=== PATIENT | male | born 1940 | race Caucasian/White ===

== ENCOUNTER 2016-10-27 10:24 | Emergency (ER) | payer MEDICARE ==
[2016-10-27 12:47] VITALS: BP 106/58
[2016-10-27] MEDS ORDERED: Aspirin Low Dose CHEW TAB* 81 MG PO ONE (12:57)
--- NOTE | 2016-10-27 12:57 | UC ---
Shortness of Breath HPI - HPI Summary HPI Summary: 2 DAYS OF EXTREME FATIGUE AND SHORTNESS OF BREATH. WORSE WITH EXERTION. HAS ASSOCIATED SHARP MIDSTERNAL CP AND FEELS CLAMMY. NO NAUSEA. HAS HAD LOW GRADE FEVER 101.3 YESTERDAY. WONDERS ABOUT PNEUMONIA. BP NOTED TO BE QUITE LOW. - History of Current Complaint Chief Complaint: UCRespiratory Stated Complaint: CHEST CONGEST,FEVER Time Seen by Provider: 10/27/16 12:46 Hx Obtained From: Patient Onset/Duration: Gradual Onset, Lasting Days, Still Present Timing: Intermittent Episodes Lasting: Current Severity: Mild Dyspnea At: Exertion Aggrevating Factors: Movement Associated Signs & Symptoms: Positive: Cough (Nonproductive), Chest Pain Unrelated to Cough, Fever, Diaphoresis. Negative: Chills, Nasal Congestion, Dizzy, Calf Pain/Swelling, Edema - Allergy/Home Medications Allergies/Adverse Reactions: Allergies Allergy/AdvReac Type Severity Reaction Status Date / Time Adhesive Tape Allergy Rash Verified 01/18/16 08:55 PMH/Surg Hx/FS Hx/Imm Hx Endocrine History Of: Reports: Diabetes - TYPE 2 Cardiovascular History Of: Reports: Hypertension - CONTROL WITH MED GI/ History Of: Reports: Kidney Stones - HX OF - Surgical History Surgical History: Yes Surgery Procedure, Year, and Place: UMBILICAL HERNIA X 2 ABOUT 15 YEARS AGO, [facility] [place]. 07/2008 LEFT ULNAR NERVE DECOMPRESSION, [facility] [place]. 09/2008 ESWL LEFT RENAL CALCULUS WITH LEFT URETERAL STENT INSERTION, [facility]. 2015 RETINA SURGERY X 2 RIGHT EYE, [place] - Family History Known Family History: Positive: Cardiac Disease, Hypertension, Diabetes - Social History Alcohol Use: None Substance Use Type: None Smoking Status (MU): Former Smoker Type: Cigarettes Amount Used/How Often: 2 PPD Length of Time of Smoking/Using Tobacco: 25+ YEAR Have You Smoked in the Last Year: No When Did the Patient Quit Smoking/Using Tobacco: 1985 Review of Systems Constitutional: Fatigue - EXTREME ENT: Negative Respiratory: Shortness Of Breath, Cough Cardiovascular: Chest Pain Gastrointestinal: Negative All Other Systems Reviewed And Are Negative: Yes Physical Exam Triage Information Reviewed: Yes Appearance: Well-Appearing, No Pain Distress, Well-Nourished Vital Signs: Initial Vital Signs Temp 98.3 F 10/27/16 11:53 Pulse 83 10/27/16 11:53 Resp 16 10/27/16 11:53 BP 105/45 10/27/16 11:53 Pulse Ox 97 10/27/16 11:53 Vital Signs Reviewed: Yes Eyes: Positive: Conjunctiva Clear ENT: Positive: Hearing grossly normal Neck: Positive: Supple, Nontender, No Lymphadenopathy Respiratory: Positive: No respiratory distress, No accessory muscle use, Crackles - BILATERAL BASES Cardiovascular Exam: Normal Abdomen Description: Positive: Soft Musculoskeletal: Positive: No Edema Neurological: Positive: Alert Psychological: Positive: Age Appropriate Behavior Skin: Negative: rashes Diagnostics - EKG Cardiac Rate: NL - 80 BPM Cardiac Rhythm: Sinus: Normal Ectopy: None ST Segment: Normal Shortness of Breath Dx - Differential Dx/Diagnosis Differential Diagnosis/HQI/PQRI: Bronchitis, Chest Wall Pain, Pulmonary Edema, Unstable Angina, Other - PNEUMONIA Provider Diagnoses: SOB/LOW BP/CP - Physician Notification/Consults Discussed Patient Care With: DR. WYATT ALONSO Time Discussed With Above Provider: 13:01 - TO [facility] [place] ER BY PRIVATE CAR Discharge - Discharge Plan Condition: Stable Disposition: AGAINST MEDICAL ADVICE Referrals: Zia Green MD [Primary Care Provider] -
== END 2016-10-27 13:07 | disposition left against medical advice (07) ==
LOC: UCEAST 10:24
DX: R06.02 Shortness of breath (principal); R07.89 Other chest pain; M54.5 Low back pain; E11.9 Type 2 diabetes mellitus without complications; I10 Essential (primary) hypertension; Z87.442 Personal history of urinary calculi; Z87.891 Personal history of nicotine dependence
CPT/HCPCS: 93005; 99202; A9270-GY; G0463

== ENCOUNTER → 2016-10-27 13:26 | Emergency (ER) | payer MEDICARE ==
[~2016-10-27 13:26] MED LIST: Levofloxacin TAB* 250 MG PO ONE; Levofloxacin TAB* 750 MG ONE
--- NOTE | 2016-10-27 15:10 | RAD ---
INDICATION: Cough. COMPARISON: Comparison is made with a prior chest x-ray study from January 23, 2011. TECHNIQUE: Dual-energy PA and lateral views of the chest were obtained. FINDINGS: The heart is within normal limits in size. Mediastinal and hilar contours appear within normal limits. The lungs are hyperinflated. There are small curvilinear densities at the left lung base most consistent with atelectasis or scarring. The lungs are otherwise clear. No pleural effusion is seen. IMPRESSION: Findings consistent with COPD, no evidence for acute finding.
[2016-10-27 15:21] LABS: Hematocrit 40 % (42-52); Hemoglobin 13.5 g/dl (14.0-18.0); Mean Corpuscular HGB Conc 34 g/dl (31-36); Mean Corpuscular Hemoglobin 30 pg (27-31); Mean Corpuscular Volume 91 fL (80-94); Mean Platelet Volume 7 um3 (7.4-10.4); Red Blood Count 4.44 10^6/ul (4.0-5.4); Red Cell Distribution Width 14 % (10.5-15); White Blood Count 18.5 10^3/ul (3.5-10.8)
[2016-10-27 15:35] LABS: Albumin 3.8 g/dL (3.2-5.2); BUN/Creatinine Ratio 25.2 (8-20); C Reactive Protein 99.36 mg/L (< 5.00); Calcium 9.7 mg/dL (8.6-10.3); EGFR African American 79.7 (>60); Globulin 4.2 g/dL (2-4); Total Bilirubin 0.6 mg/dL (0.2-1.0)
[2016-10-27 17:08] VITALS: BP 110/54
--- NOTE | 2016-10-27 21:10 | ED ---
Flex Ceballos Aidan, scribed for Terrence Zamorano MD on 10/27/16 at 1810 . Respiratory - HPI Summary HPI Summary: 76 y/o male presents to the ED via transfer from the with a complaint of an acute, constant, moderate nonproductive cough for the past 2.5 days, hoarseness , and a moderate episode of hypotension. His cough causes a mild chest discomfort. While at the , he felt moderately lightheaded. Lastly, he had a fever today and some SOB on exertion. Hx of pneumonia 3x. - History of Current Complaint Chief Complaint: EDGeneral Stated Complaint: LOW BP Time Seen by Provider: 10/27/16 17:06 Hx Obtained From: Patient Onset/Duration: Sudden Onset, Lasting Days - 2.5, Still Present Timing: Constant Initial Severity: Moderate Current Severity: Moderate Pain Intensity: 0 Character: Cough (Nonproductive) Sputum Amount: None Aggravating Factor(s): Other - his cough causes chest discomfort Alleviating Factor(s): Nothing - unknown Associated Signs and Symptoms: Fever - today, SOB - on exertion, Chest Pain with Cough - and hoarseness, episode of hypotension - Risk Factors Status Asthmaticus Risk Factors: Smoking - former smoker Pulmonary Embolism Risk Factors: Smoking - former smoker Cardiac Risk Factors: Smoking - former smoker - Allergy/Home Medications Allergies/Adverse Reactions: Allergies Allergy/AdvReac Type Severity Reaction Status Date / Time Adhesive Tape Allergy Rash Verified 01/18/16 08:55 Home Medications: Home Medications Aspirin EC Low Dose* [Ecotrin EC Low Dose 81 MG*] 81 mg PO DAILY 10/27/16 [ History Confirmed 10/27/16] Hydrochlorothiazide TAB* [Hydrodiuril TAB*] 12.5 mg PO QAM 10/27/16 [History Confirmed 10/27/16] Irbesartan (NF) [Avapro (NF)] 300 mg PO QAM 10/27/16 [History Confirmed 10/27/16 ] Metformin ER (NF) 500 mg PO QAM 10/27/16 [History Confirmed 10/27/16] Metoprolol Tartrate TAB* [Lopressor TAB*] 25 mg PO DAILY 10/27/16 [History Confirmed 10/27/16] Multivitamins/Minerals TAB* [Theragran/minerals TAB*] 1 tab PO DAILY 10/27/16 [ History Confirmed 10/27/16] amLODIPine TAB* [Norvasc 5 mg TAB*] 5 mg PO DAILY 10/27/16 [History Confirmed ] PMH/Surg Hx/FS Hx/Imm Hx Endocrine/Hematology History: Reports: Hx Diabetes - TYPE 2 Cardiovascular History: Reports: Hx Hypertension - CONTROL WITH MED, Other Cardiovascular Problems/Disorders - CHOLESTEROL CONTROL WITH MEDS Respiratory History: Reports: Other Respiratory Problems/Disorders - HX OF PNEUMONIA LAST TIME ABOUT 3 YEARS AGO History: Reports: Hx Kidney Stones - HX OF, Other Problems/Disorders - ENLARGE PROSTATE Sensory History: Reports: Hx Cataracts - BILATERAL, Hx Contacts or Glasses - GLASSES Denies: Hx Hearing Aid Opthamlomology History: Reports: Hx Cataracts - BILATERAL, Hx Contacts or Glasses - GLASSES - Surgical History Surgery Procedure, Year, and Place: UMBILICAL HERNIA X 2 ABOUT 15 YEARS AGO, [facility]. 07/2008 LEFT ULNAR NERVE DECOMPRESSION, [facility]. 09/2008 ESWL LEFT RENAL CALCULUS WITH LEFT URETERAL STENT INSERTION, [facility]. 2014 RETINA SURGERY X 2 RIGHT EYE, [place] Hx Anesthesia Reactions: No Infectious Disease History: No Infectious Disease History: Denies: Traveled Outside the [place] in Last 30 Days - Family History Known Family History: Positive: Cardiac Disease, Hypertension, Diabetes - Social History Occupation: Retired Lives: With Family Alcohol Use: None Substance Use Type: Reports: None Smoking Status (MU): Former Smoker Type: Cigarettes Amount Used/How Often: 2 PPD Length of Time of Smoking/Using Tobacco: 25+ YEAR Have You Smoked in the Last Year: No Review of Systems Constitutional: Other - moderate lightheadedness while at the Positive: Fever. Negative: Chills, Fatigue, Skin Diaphoresis Eyes: Negative ENT: Negative Cardiovascular: Other - episode of hypotension Negative: Palpitations, Chest Pain Respiratory: Other - hoarseness Positive: Shortness Of Breath - on exertion, Cough - nonproductive, causes chest discomfort Gastrointestinal: Negative Genitourinary: Negative Musculoskeletal: Negative Skin: Negative Neurological: Negative Psychological: Normal All Other Systems Reviewed And Are Negative: Yes Physical Exam Triage Information Reviewed: Yes Vital Signs On Initial Exam: Initial Vitals Temp Pulse Resp BP Pulse Ox 98.3 F 82 18 104/50 97 10/27/16 13:33 10/27/16 13:33 10/27/16 13:33 10/27/16 13:33 10/27/16 13:33 Vital Signs Reviewed: Yes Appearance: Positive: Well-Appearing, No Pain Distress Skin: Positive: Warm, Skin Color Reflects Adequate Perfusion, Dry Head/Face: Positive: Normal Head/Face Inspection Eyes: Positive: Normal ENT: Positive: Normal ENT inspection Neck: Positive: Supple, Nontender Respiratory/Lung Sounds: Positive: Clear to Auscultation, Breath Sounds Present Cardiovascular: Positive: RRR Abdomen Description: Positive: Nontender, Soft Bowel Sounds: Positive: Present Musculoskeletal: Positive: Normal Neurological: Positive: Normal Psychiatric: Positive: Affect/Mood Appropriate - [place] Coma Scale Coma Scale Total: 15 Diagnostics - Vital Signs Vital Signs Temp Pulse Resp BP Pulse Ox 10/27/16 17:17 20 10/27/16 17:06 99.4 F 78 20 110/54 95 10/27/16 15:05 97.1 F 82 17 132/57 97 10/27/16 13:33 98.3 F 82 18 104/50 97 - Laboratory Lab Results: Lab Results 10/27/16 10/27/16 10/27/16 Range/Units 15:11 15:11 17:35 WBC 18.5 H (3.5-10.8) 10^3/ul RBC 4.44 (4.0-5.4) 10^6/ul Hgb 13.5 L (14.0-18.0) g/dl Hct 40 L (42-52) % MCV 91 (80-94) fL MCH 30 (27-31) pg MCHC 34 (31-36) g/dl RDW 14 (10.5-15) % Plt Count 316 (150-450) 10^3/ul MPV 7 L (7.4-10.4) um3 Neut % (Auto) 79.2 (38-83) % Lymph % (Auto) 12.7 L (25-47) % [place] % (Auto) 6.0 (1-9) % Eos % (Auto) 1.4 (0-6) % Baso % (Auto) 0.7 (0-2) % Absolute Neuts (auto) 14.7 H (1.5-7.7) 10^3/ul Absolute Lymphs (auto) 2.3 (1.0-4.8) 10^3/ul Absolute Monos (auto) 1.1 H (0-0.8) 10^3/ul Absolute Eos (auto) 0.3 (0-0.6) 10^3/ul Absolute Basos (auto) 0.1 (0-0.2) 10^3/ul Absolute Nucleated RBC 0.01 10^3/ul Nucleated RBC % 0 Sodium 134 (133-145) mmol/L Potassium 4.0 (3.5-5.0) mmol/L Chloride 103 (101-111) mmol/L Carbon Dioxide 22 (22-32) mmol/L Anion Gap 9 (2-11) mmol/L BUN 29 H (6-24) mg/dL Creatinine 1.15 (0.67-1.17) mg/dL Est GFR ( Amer) 79.7 (>60) Est GFR (Non-Af Amer) 62.0 (>60) BUN/Creatinine Ratio 25.2 H (8-20) Glucose 95 (70-100) mg/dL Lactic Acid 0.9 (0.5-2.0) mmol/L Calcium 9.7 (8.6-10.3) mg/dL Total Bilirubin 0.60 (0.2-1.0) mg/dL AST 16 (13-39) U/L ALT 16 (7-52) U/L Alkaline Phosphatase 97 (34-104) U/L Troponin I (<0.04) ng/mL C-Reactive Protein 99.36 H (< 5.00) mg/L Total Protein 8.0 (6.4-8.9) g/dL Albumin 3.8 (3.2-5.2) g/dL Globulin 4.2 H (2-4) g/dL Albumin/Globulin Ratio 0.9 L (1-3) 10/27/16 Range/Units 17:35 WBC (3.5-10.8) 10^3/ul RBC (4.0-5.4) 10^6/ul Hgb (14.0-18.0) g/dl Hct (42-52) % MCV (80-94) fL MCH (27-31) pg MCHC (31-36) g/dl RDW (10.5-15) % Plt Count (150-450) 10^3/ul MPV (7.4-10.4) um3 Neut % (Auto) (38-83) % Lymph % (Auto) (25-47) % [place] % (Auto) (1-9) % Eos % (Auto) (0-6) % Baso % (Auto) (0-2) % Absolute Neuts (auto) (1.5-7.7) 10^3/ul Absolute Lymphs (auto) (1.0-4.8) 10^3/ul Absolute Monos (auto) (0-0.8) 10^3/ul Absolute Eos (auto) (0-0.6) 10^3/ul Absolute Basos (auto) (0-0.2) 10^3/ul Absolute Nucleated RBC 10^3/ul Nucleated RBC % Sodium (133-145) mmol/L Potassium (3.5-5.0) mmol/L Chloride (101-111) mmol/L Carbon Dioxide (22-32) mmol/L Anion Gap (2-11) mmol/L BUN (6-24) mg/dL Creatinine (0.67-1.17) mg/dL Est GFR ( Amer) (>60) Est GFR (Non-Af Amer) (>60) BUN/Creatinine Ratio (8-20) Glucose (70-100) mg/dL Lactic Acid (0.5-2.0) mmol/L Calcium (8.6-10.3) mg/dL Total Bilirubin (0.2-1.0) mg/dL AST (13-39) U/L ALT (7-52) U/L Alkaline Phosphatase (34-104) U/L Troponin I 0.01 (<0.04) ng/mL C-Reactive Protein (< 5.00) mg/L Total Protein (6.4-8.9) g/dL Albumin (3.2-5.2) g/dL Globulin (2-4) g/dL Albumin/Globulin Ratio (1-3) Result Diagrams: 10/27/16 15:11 10/27/16 15:11 Lab Statement: Any lab studies that have been ordered have been reviewed, and results considered in the medical decision making process. - Radiology CHEST XR Xray Interpretation: Positive (See Comments) - IMPRESSION: Findings consistent with COPD, no evidence for acute finding. Radiology Interpretation Completed By: Radiologist Disposition - Course Course Of Treatment: Mr. Rainey was asymptomatic and stable with a blood pressure in the 110 range. This is low for him but his W/U was negative for any signs of sepsis or cardiac problem. He wants to go home and I think it is reasonable to treat him for early pneumonia and let him go. - Diagnoses Provider Diagnoses: Pneumonia Discharge - Discharge Plan Condition: Stable Disposition: HOME Discharge Disposition Comment: Please follow up with your primary care physician within 2 days. Prescriptions: Levofloxacin TAB* [Levaquin TAB*] 750 mg PO DAILY #20 tab Patient Education Materials: Acute Bronchitis (ED) Referrals: Zia Green MD [Primary Care Provider] - The documentation as recorded by the Flex cueto Aidan accurately reflects the service I personally performed and the decisions made by me, Terrence Zamorano MD.
== END | disposition home or self-care (01) ==
LOC: ED 13:26
DX: J18.9 Pneumonia, unspecified organism (principal); R50.9 Fever, unspecified; R06.02 Shortness of breath; R07.9 Chest pain, unspecified; R05 Cough; Z87.891 Personal history of nicotine dependence
CPT/HCPCS: 36415; 71020; 80053; 83605; 84484; 85025; 86140; 99282; A9270-GY

== ENCOUNTER 2016-10-31 09:15 | Inpatient (IN) | payer MEDICARE ==
[2016-10-31 10:18] LABS: Hematocrit 40 % (42-52); Hemoglobin 13.2 g/dl (14.0-18.0); Mean Corpuscular HGB Conc 33 g/dl (31-36); Mean Corpuscular Hemoglobin 30 pg (27-31); Mean Corpuscular Volume 91 fL (80-94); Mean Platelet Volume 8 um3 (7.4-10.4); Red Blood Count 4.39 10^6/ul (4.0-5.4); Red Cell Distribution Width 14 % (10.5-15); White Blood Count 17.3 10^3/ul (3.5-10.8)
[2016-10-31 10:39] LABS: ALT 14 U/L (7-52); Albumin 3.6 g/dL (3.2-5.2); Alkaline Phosphatase 102 U/L (34-104); BUN/Creatinine Ratio 28.2 (8-20); Blood Urea Nitrogen 37 mg/dL (6-24); CO2 Carbon Dioxide 20 mmol/L (22-32); Calcium 9.7 mg/dL (8.6-10.3); Chloride 101 mmol/L (101-111); EGFR African American 68.6 (>60); EGFR Non-African American 53.3 (>60); Globulin 4.5 g/dL (2-4); Glucose 174 mg/dL (70-100); Sodium 132 mmol/L (133-145); Total Protein 8.1 g/dL (6.4-8.9)
[2016-10-31 10:40] LABS: Troponin I 0.03 ng/mL (<0.04)
[2016-10-31] MEDS ORDERED: NS 0.9% 1000 ML* 1,000 ML IV ONE ×3 (12:02→12:52)
[2016-10-31] MEDS ORDERED: Dextrose 50% Syringe 50 ML* 25 GM/50 ML SYRINGE IV PUSH PRN (12:46)
[2016-10-31] MEDS ORDERED: Acetaminophen TAB* 325 MG PO PRN (12:46)
[2016-10-31] MEDS ORDERED: Iodixanol* (CONTRAST) 320 MG/ML 100 ML SDV IV ONE (12:58)
[2016-10-31] MEDS ORDERED: NS 0.9% 1000 ML* 1,000 ML IV SCH (13:00)
[2016-10-31 13:29] LABS: Urine Bilirubin Negative (Negative); Urine Glucose 3+(>=500 mg/dL) (Negative); Urine Nitrite Negative (Negative)
--- NOTE | 2016-10-31 13:51 | RAD ---
HISTORY: Pneumonia, weight loss COMPARISONS: None TECHNIQUE: Multiple contiguous axial CT scans of the chest were obtained with intravenous contrast. Coronal and sagittal multiplanar reformations are also submitted for review. FINDINGS: NECK AND THYROID: The lower neck and thyroid are unremarkable. CHEST WALL: There is no lower cervical, axillary, or supraclavicular lymphadenopathy by size criteria. HEART AND PERICARDIUM: The heart is unremarkable. AORTA AND PULMONARY VASCULATURE: The aorta and pulmonary vasculature are normal. MEDIASTINUM: There is no mediastinal lymphadenopathy by size criteria. NAYANA: There is no hilar lymphadenopathy by size criteria. AIRWAY AND ESOPHAGUS: The airway is unremarkable, without endobronchial filling defect. The esophagus is grossly normal. LUNG PARENCHYMA: There is a pattern of centrilobular nodularity with a peripheral and basilar predominance, with mild interlobular septal thickening. Additionally, there is a 0.6 cm round nodule of the right middle lobe on axial image 42.. There are subpleural nodules also noted in the left lower lobe on axial image 41 measuring 0.6 cm, and in the left upper lobe on axial image 17 measuring 0.7 cm. PLEURA: No pleural abnormalities are noted. UPPER ABDOMEN: The upper abdomen is unremarkable. BONES AND SOFT TISSUES: Mild degenerative changes are noted OTHER: None. IMPRESSION: 1. THERE IS A PATTERN OF CENTRILOBULAR NODULARITY SUGGESTIVE OF AN INFLAMMATORY OR INFECTIOUS PROCESS, WITH A PERIPHERAL AND BASILAR PREDOMINANCE. 2. ADDITIONALLY, THERE ARE SEVERAL LARGER NODULES MEASURING UP TO 0.7 CM IN SIZE. THE RECOMMENDATIONS FOR FOLLOWUP AND MANAGEMENT OF AN INCIDENTALLY DETECTED PULMONARY NODULE GREATER THAN 6 MM BUT LESS THAN OR EQUAL TO 8 MM IN SIZE, IN A PATIENT WITHOUT A HISTORY OF MALIGNANCY, INCLUDE FOLLOWUP CT IN 6-12 MONTHS, THEN AGAIN AT 18-24 MONTHS FOR A LOW-RISK PATIENT OR FOLLOWUP CT IN 3-6 MONTHS, THEN 9-12, THEN AGAIN AT 24 MONTHS FOR A HIGH RISK PATIENT. NOTES: SIZE = AVERAGE LENGTH AND WIDTH; HIGH RISK IS DEFINED A HISTORY OF SMOKING OR OTHER KNOW RISK FACTORS FOR LUNG CANCER; LOW RISK IS DEFINED MINIMAL OR ABSENT HISTORY OF SMOKING OR OTHER KNOWN RISK FACTORS. NODULES WITH A GROUND GLASS COMPONENT MAY REQUIRE LONGER FOLLOW UP TO EXCLUDE INDOLENT ADENOCARCINOMA.
[2016-10-31] MEDS: cefTRIAXone VIAL(*) 1,000 MG in NS 0.9% 50 ML* 50 ML IVPB SCH (15:20)
[2016-10-31] MEDS: Heparin VIAL(*) 5000 UNITS/ML VIAL (FIVE THOUSAND) SUBCUT SCH ×2 (15:21→22:06)
--- NOTE | 2016-10-31 16:01 | HP ---
HISTORY AND PHYSICAL: DATE OF ADMISSION: 10/31/16 PRIMARY CARE PROVIDER: Dr. Green. ATTENDING PHYSICIAN: Dr. Tarango *(this report is being dictated by Tiffany Watson NP) CHIEF COMPLAINT: 1. Cough. 2. Shortness of breath. HISTORY OF PRESENT ILLNESS: Mr. Rainey is a 76-year-old male patient with history of BPH, skin cancer, diabetes, hyperlipidemia, and hypertension. He also has a former history of smoking. He states recently he had traveled back up from [place] about a month ago. He had been doing well initially; however, he does admit to having a fact that he has had about a 15- to 14-pound weight loss in the last 3-4 weeks unexplained. He states over the last 10 days, he has had a runny nose, sore throat, and cough. He has been feeling weak. He has been kind of aching all over. He thinks he has been having night sweats at night in the last 7- 10 days, feeling febrile at times. He is not feeling himself. He went to [facility] on Sunday as he just was not feeling well. [facility] noted that his blood pressures systolically were in the 90s. He was sent to the hospital, was evaluated in the ED. The patient improved with IV fluids here and the patient was requesting to be discharged home. He was discharged home on appropriate p.o. antibiotics; however, despite being on Levaquin from the last 2- 1/2 days, there is no still improvement. He is still feeling coughing, still having short of breath, more so dyspnea on exertion. He denies any other symptoms such as chest pain or shortness of breath at rest. Denied any nausea, vomiting, or diarrhea. He states he has had chills still at night and denied having any recent change in medication. He has also noted that his blood pressures have been on the low side. I checked his blood pressures this morning and it was in the 80s. He states he has been eating and drinking but he has also been taking his diuretics as prescribed and all of his blood pressure medications as prescribed. Because of the low blood pressure and the fact that it was not improving, he decided to come back into the ER today, where he was evaluated by Dr. Zamorano. It was noted that his white count had improved despite being on antibiotics and his creatinine function was a little worse, and initially his blood pressures were fine here; however, because of the fact that he had not been improving, we were asked to evaluate for admission. PAST MEDICAL HISTORY: Significant for: 1. Diabetes. 2. Hyperlipidemia. 3. Hypertension. 4. BPH. 5. Skin cancer. PAST SURGICAL HISTORY: 1. He has had cataracts. 2. He has had right elbow surgery. 3. Hernia repair. HOME MEDICATIONS: Include: 1. Avapro 300 mg p.o. in the morning. 2. Lispro 15 units subcu q.p.m. with meal. 3. Lantus 60 units subcu at bedtime. 4. Indomethacin 25 mg p.o. t.i.d. as needed with meals. 5. Hydrochlorothiazide 12.5 mg daily. 6. Invokana 100 mg daily. 7. Lipitor 40 mg q.a.m. 8. Aspirin 81 mg daily. 9. Amlodipine 5 mg daily. 10. Multivitamin 1 tablet daily. 11. Metoprolol 25 mg daily. 12. Metformin 500 mg p.o. q.a.m. 13. Levaquin 750 mg p.o. daily. ALLERGIES TO MEDICATIONS: His allergies to medications are none, but he is allergic to TAPES. FAMILY HISTORY: His mother had a history of UT. Father had a history of prostate cancer. SOCIAL HISTORY: He is a former smoker. He does not drink alcohol. He is with children. Surrogate decision maker is his . REVIEW OF SYSTEMS: There is no documented fever. He does admit to subjectively having chills. He does admit there was significant weight changes. He denied having any double vision. There was no ear discharge. He denies having any rhinorrhea. There was no sore throat. No thyroid enlargement. He denies having any chest pain. There was no orthopnea. No nocturnal dyspnea. There was no abdominal pain. No nausea. No vomiting. He denied having any dysuria. There was admission of frequency. No loss of consciousness. No pruritus. No skin ulcerations. Review of 14 systems was completed, all others negative. PHYSICAL EXAMINATION GENERAL: At this time, Mr. Rainey is a 76-year-old male patient. He is sitting in the ER stretcher. He does not appear to be in any acute distress. He is well- nourished and well-developed. VITAL SIGNS: Reveal a blood pressure of 118/55 with a pulse of 92, respirations 20, O2 sat was 95%, temperature 98.7. HEENT: Head is atraumatic and normocephalic. Eyes: EOMs are intact. Sclerae anicteric and not pale. Throat: Oral mucosa appeared to be moist. No oropharyngeal erythema. NECK: Supple. LUNGS: He did have some crackles in the right base. He had equal diaphragmatic expansion. HEART: Heart sounds S1 and S2. Regular rate and rhythm. No murmurs, rubs, or gallops. ABDOMEN: Soft, flat, nontender. Bowel sounds were present. EXTREMITIES: Pulses were 2+ throughout. He was able to move all four extremities; 5/5 strength. He had no peripheral edema. SKIN: Intact. NEUROLOGIC: The patient is awake. He is alert. He is oriented x3. His tongue is midline. His pretzel twister were equal. He had no gross focal deficits. LABORATORY DATA: Labs today revealed a WBC of 17.3, RBC of 4.39, hemoglobin of 13.2, hematocrit of 40, platelet count of 327. INR 1.14. His sodium was 132 , potassium 4.2, chloride 101, his bicarb is 20, BUN 37, creatinine 1.31, baseline 1.15. His glucose 174. His lactic 0.9, calcium 9.7, total bili 0.7, AST 12, ALT 14, alk phos 102, troponin 0.03, albumin is 3.6. He did have a chest x-ray done on the , which revealed findings consistent with COPD. No evidence for acute findings. He had an EKG obtained today, which showed a normal sinus rhythm at a rate of 97. No ST elevation or T-wave inversions. Old medical records were reviewed. ASSESSMENT AND PLAN: Mr. Rainey is a 76-year-old male patient, coming into the ER today with complaints of cough, weakness, weight loss, fevers at night, and just not feeling well particularly over the last 10 days with a weight loss over the last 3-4 weeks. Because he has been on appropriate antibiotic therapy for presumed pneumonia, the hospitalist service was asked to evaluate for admission. He will be admitted under observation status for: 1. Weakness. Again, he does have some crackles on the base. He may have bronchitis or a viral illness. His white count is not going down. My plan at this point is to pancultured the patient because he does have a significant leukocytosis. I am going to go ahead and try to get a urine. We will get him for flu. We will get a legionella and Strep pneumo antigens and we will try to get a sputum culture and I will get a flu swab. In addition to this we will go ahead and get a CTA of the chest. Since he has had this weight loss, he has had some weakness. He has a history of smoking. I would like to make sure there we are dealing with postobstructive pneumonia. Because of his upper respiratory infection symptoms and the fact that this may be a respiratory illness albeit could be viral, but it still could be bacterial. I am going to put him on Rocephin and azithromycin and will continue to follow. 2. Leukocytosis. Again, it could be infection related. We will panculture him. We will continue to follow. We will give him fluids and antibiotics for a respiratory illness as he could have acute bronchitis or he could have pneumonia , but again we are getting a repeat imaging of his chest with a CT of the chest with contrast. 3. Acute renal failure. At this point, he was on an ARB, he was taking indomethacin. In addition to this, he was also on Levaquin, which all again can certainly cause renal impairment particularly if we are dehydrated. So I suspect that is the case. We will hold these medications, we will hydrate him, I will send a FENa. We will check a bladder scan. We will continue to follow. If his creatinine function is not improving, we will consider a renal ultrasound. 4. Diabetes. We will go ahead and put him on Lispro sliding scale. 5. Hyperlipidemia. Continue statin therapy. 6. Hypertension. His blood pressures at home were in the 80s and last week greater than 90s. Blood pressures here were in the 120s. He did not take his meds this morning. So, I am going to hold his medications. We will slowly reintroduce them. continuing with the beta-josie with hold parameters. 7. History of benign prostate hypertrophy. Continue with current medical management. We will get urine studies. 8. History of skin cancer. Follow with his primary. 9. DVT prophylaxis. He will be placed on heparin subcu. 10. Code status: He wished to be a DNR. 11. Fluid, electrolyte, nutrition. He can have a consistent carb diet. TIME SPENT: Time spent on this admission was approximately 50 minutes, greater than half the time was spent [id number] with the patient obtaining my history and physical; other half the time was spent going over the plan of care with the patient and implementing the plan of care. I discussed the plan of care with my attending, Dr. Tarango; he is in agreement. TIFFANY WATSON NP CC: Dr. Green* [id number]/[facility] #: [id number] RICKIE
[2016-10-31] MEDS: Azithromycin IV(*) 500 MG in NS 0.9% 250 ML* 250 ML IVPB SCH (16:16)
[2016-10-31 16:18] LABS: Urine Bilirubin Negative (Negative); Urine Glucose 3+(>=500 mg/dL) (Negative); Urine Nitrite Negative (Negative)
[2016-10-31] MEDS: Insulin LISPRO* 1 UNITS UNIT SUBCUT SCH (17:34)
[2016-10-31] MEDS: Insulin GLARGINE(*) 1 UNITS UNIT SUBCUT SCH (22:05)
--- NOTE | 2016-10-31 22:27 | CONS ---
CONSULTATION REPORT: DATE OF CONSULT: 10/31/16 REQUESTING PROVIDER: Dimas Watson NP CONSULTING SERVICE: Infectious Disease. REASON FOR CONSULT: Pneumonia. IMPRESSION: 1. Ten days of fever, night sweats, productive cough. CT scan which I reviewed shows bilateral nodular infiltrates; they are mostly peripheral. Radiologist also notes several large nodules up to 0.7 cm in size which are bilateral. The infectious differential diagnosis includes atypical bacterial, viral including adenovirus though he has had no conjunctivitis, human metapneumovirus, RSV, influenza, though the influenza PCR was negative, so that is less likely. Fungal infections including cryptococcus which is a consideration given his diabetes, histoplasmosis though he has had no good exposure history to support it, and I doubt pneumocystis without particular predisposing corticosteroid or chemotherapy program. Mycobacterial is unlikely , no TB exposure history, and not typical imaging pattern for tuberculosis or nontuberculous mycobacterial infection. Non- infectious including autoinflammatory or malignancy are consideration. His systemic symptoms suggest infection at this point. 2. Diabetes, insulin dependent. RECOMMENDATION: Agree with ceftriaxone and azithromycin. Sputum culture if he can produce one. Blood cultures are pending. We will add a serum cryptococcal antigen, urine histoplasma antigen, nasal swabs for RSV, adenovirus, and human metapneumovirus. HISTORY OF PRESENT ILLNESS: This is a 76-year-old man with diabetes admitted with cough and fever. He had been well until about 2 weeks ago. He had developed fevers, chills, and drenching sweats at night, and he was seen at the ER on the . He had a chest x-ray that showed changes due to COPD, no acute findings. He was started on Levaquin. He had continued decreased appetite, night sweats, cough, malaise, so he came to the ER today. He was admitted, started on fluids, and IV antibiotics. Chest CT was done with findings noted above. He has been afebrile here so far and normotensive. He said he had some food today the first time in a few days. Recently, he was in [place] for the winter, was around some couples who were sick there with a cough. He felt well. He was working on weight loss there by exercising more, he lost about 15 pounds, the last 10 pounds came about little bit easier than he expected though his appetite has been good. PAST MEDICAL HISTORY: 1. Diabetes, insulin dependent. 2. Hypertension. 3. Hyperlipidemia. 4. Benign prostatic hypertrophy. 5. Skin cancer. 6. Right elbow surgery. 7. Status post hernia repair. MEDICATIONS: 1. Tylenol. 2. Aspirin. 3. Lipitor. 4. Heparin subcutaneous injection. 5. Insulin glargine. 6. Ceftriaxone 1 g daily. 7. Azithromycin 500 mg every 24 hours. ALLERGIES: TAPE, but no medications. FAMILY HISTORY: No tuberculosis. No recurrent infections. SOCIAL HISTORY: He was in [place], the [facility], came back to [place] about 3 weeks ago, drive up. No sick contacts. No pet, no cat, no kittens. No outdoors work or barn or rodent exposure. No known TB contacts. Never in the or group home or lived abroad. REVIEW OF SYSTEMS: Full review of systems was negative except as noted above. PHYSICAL EXAM: Vital Signs: Temperature 37, heart rate 90, respiratory rate 20 , blood pressure 110/53, O2 sat is 93% on room air. In general, he is awake, non- distressed. Neurologic: Oriented x3. Follows all commands, moves all extremities. HEENT: There is no conjunctival hemorrhage. Oropharynx is without lesions. Neck is supple without nuchal rigidity. Lymph Nodes: There is no cervical, supraclavicular, inguinal, axillary, or epitrochlear lymphadenopathy. Heart has regular rate and rhythm without murmurs, rubs, or gallops. Lungs are clear to auscultation. Abdomen is soft, nontender, nondistended. Skin: There is no rash or splinter hemorrhages. Musculoskeletal : There is no spine tenderness to palpation or no joint synovitis. LABORATORY DATA: White blood cell count 17, hemoglobin 13, platelets 327. Creatinine is 1.3. Lactic acid is 0.9. Influenza PCR negative. Please see impressions and recommendations outlined above, which I have discussed with Dimas Watson NP. Thanks for asking me to see Mr. Rainey in consultation. [id number]/[facility] #: [id number] RICKIE
[2016-11-01 05:14] LABS: Hematocrit 34 % (42-52); Hemoglobin 11.6 g/dl (14.0-18.0); Mean Corpuscular HGB Conc 34 g/dl (31-36); Mean Corpuscular Hemoglobin 31 pg (27-31); Mean Corpuscular Volume 90 fL (80-94); Mean Platelet Volume 7 um3 (7.4-10.4); Red Cell Distribution Width 14 % (10.5-15); White Blood Count 12.5 10^3/ul (3.5-10.8)
[2016-11-01 05:25] LABS: BUN/Creatinine Ratio 25.3 (8-20); Calcium 8.6 mg/dL (8.6-10.3); EGFR African American 94.8 (>60); EGFR Non-African American 73.7 (>60); Potassium 3.6 mmol/L (3.5-5.0)
[2016-11-01] MEDS: Heparin VIAL(*) 5000 UNITS/ML VIAL (FIVE THOUSAND) SUBCUT SCH ×3 (05:31→21:17)
[2016-11-01] MEDS: Insulin LISPRO* 1 UNITS UNIT SUBCUT SCH ×3 (09:15→17:02)
[2016-11-01] MEDS: Aspirin EC Low Dose* 81 MG TAB.EC PO SCH (09:16)
[2016-11-01] MEDS: Metoprolol Tartrate TAB* 25 MG PO SCH (09:16)
[2016-11-01] MEDS: Atorvastatin* 40 MG TAB PO SCH (09:16)
--- NOTE | 2016-11-01 11:08 | PN ---
Progress Note - Progress Note SOAP: Subjective: DOS: 11/01/16 CC: cough HPI: 76 year old man with recent weight loss, then developed fever, sweats, cough, dyspnea over the last 10 days, Rx levaquin as an outpatient but symptoms progressed. Came to ER yesterday, had leukocytosis and abnormal CT chest. Abx and fluids overnight, this morning, he has resolution of fever, no sweats overnight, breathing more comfortably. No rash or diarrhea. Since overnight has left toe and ankle pain which feels like his usual gout. Indomethacin usually works. Hurts to bear weight. Objective: [] Vital Signs Temp 36.8 C 11/01/16 07:24 Pulse 87 11/01/16 07:24 Resp 18 11/01/16 07:24 BP 123/44 11/01/16 07:24 Pulse Ox 96 11/01/16 08:26 Intake & Output 10/31/16 11/01/16 11/01/16 18:59 06:59 18:59 Intake Total 360 681 320 Output Total 0 520 Balance 360 161 320 Weight 181 lb 4.8 oz Intake: IV Fluids 681 Oral 360 0 320 Output: Urine 520 Post Void Residual 0 Other: # Bowel Movements 0 # Voids 2 Gen:no distress Neuro:AAOx3 HEENT:PERRL, MMM Neck:Supple Heart:RRR no murmur Lungs:CTA BL Abd:+BS NTND soft Skin: no rash MSK: no spine tenderness, left foot 1+ edema, 1st MTP tender, no erythema, medial ankle tender Laboratory Results - last 24 hr 10/31/16 10/31/16 10/31/16 10:05 11:10 13:11 WBC RBC Hgb Hct MCV MCH MCHC RDW Plt Count MPV Neut % (Auto) Lymph % (Auto) Traverse % (Auto) Eos % (Auto) Baso % (Auto) Absolute Neuts (auto) Absolute Lymphs (auto) Absolute Monos (auto) Absolute Eos (auto) Absolute Basos (auto) Absolute Nucleated RBC Nucleated RBC % INR (Anticoag Therapy) Sodium Potassium 4.2 Chloride Carbon Dioxide Anion Gap BUN Creatinine Est GFR ( Amer) Est GFR (Non-Af Amer) BUN/Creatinine Ratio Glucose POC Glucose (mg/dL) Calcium AST TNP 12 L Urine Color Yellow Urine Appearance Clear Urine pH 5.0 Ur Specific Paige 1.017 Urine Protein Negative Urine Ketones Negative Urine Blood Negative Urine Nitrate Negative Urine Bilirubin Negative Urine Urobilinogen Negative Ur Leukocyte Esterase Negative Ur Random Creatinine Ur Random Sodium Urine Glucose 3+(>=500 mg/dl) H Influenza A (Rapid) Influenza B (Rapid) 10/31/16 10/31/16 10/31/16 14:16 15:45 15:45 WBC RBC Hgb Hct MCV MCH MCHC RDW Plt Count MPV Neut % (Auto) Lymph % (Auto) Traverse % (Auto) Eos % (Auto) Baso % (Auto) Absolute Neuts (auto) Absolute Lymphs (auto) Absolute Monos (auto) Absolute Eos (auto) Absolute Basos (auto) Absolute Nucleated RBC Nucleated RBC % INR (Anticoag Therapy) Sodium Potassium Chloride Carbon Dioxide Anion Gap BUN Creatinine Est GFR ( Amer) Est GFR (Non-Af Amer) BUN/Creatinine Ratio Glucose POC Glucose (mg/dL) Calcium AST Urine Color Yellow Urine Appearance Clear Urine pH 5.0 Ur Specific Paige 1.040 H Urine Protein Negative Urine Ketones Negative Urine Blood Negative Urine Nitrate Negative Urine Bilirubin Negative Urine Urobilinogen Negative Ur Leukocyte Esterase Negative Ur Random Creatinine 80.19 Ur Random Sodium 62 Urine Glucose 3+(>=500 mg/dl) H Influenza A (Rapid) Negative Influenza B (Rapid) Negative 10/31/16 10/31/16 11/01/16 16:49 21:08 04:53 WBC 12.5 H RBC 3.80 L Hgb 11.6 L Hct 34 L MCV 90 MCH 31 MCHC 34 RDW 14 Plt Count 242 MPV 7 L Neut % (Auto) 79.3 Lymph % (Auto) 11.9 L Traverse % (Auto) 6.9 Eos % (Auto) 1.3 Baso % (Auto) 0.6 Absolute Neuts (auto) 9.9 H Absolute Lymphs (auto) 1.5 Absolute Monos (auto) 0.9 H Absolute Eos (auto) 0.2 Absolute Basos (auto) 0.1 Absolute Nucleated RBC 0 Nucleated RBC % 0 INR (Anticoag Therapy) Sodium Potassium Chloride Carbon Dioxide Anion Gap BUN Creatinine Est GFR ( Amer) Est GFR (Non-Af Amer) BUN/Creatinine Ratio Glucose POC Glucose (mg/dL) 256 H 121 H Calcium AST Urine Color Urine Appearance Urine pH Ur Specific Paige Urine Protein Urine Ketones Urine Blood Urine Nitrate Urine Bilirubin Urine Urobilinogen Ur Leukocyte Esterase Ur Random Creatinine Ur Random Sodium Urine Glucose Influenza A (Rapid) Influenza B (Rapid) 11/01/16 11/01/16 11/01/16 04:53 04:53 07:49 WBC RBC Hgb Hct MCV MCH MCHC RDW Plt Count MPV Neut % (Auto) Lymph % (Auto) Traverse % (Auto) Eos % (Auto) Baso % (Auto) Absolute Neuts (auto) Absolute Lymphs (auto) Absolute Monos (auto) Absolute Eos (auto) Absolute Basos (auto) Absolute Nucleated RBC Nucleated RBC % INR (Anticoag Therapy) 1.18 H Sodium 132 L Potassium 3.6 Chloride 106 Carbon Dioxide 19 L Anion Gap 7 BUN 25 H Creatinine 0.99 Est GFR ( Amer) 94.8 Est GFR (Non-Af Amer) 73.7 BUN/Creatinine Ratio 25.3 H Glucose 101 H POC Glucose (mg/dL) 108 H Calcium 8.6 AST Urine Color Urine Appearance Urine pH Ur Specific Paige Urine Protein Urine Ketones Urine Blood Urine Nitrate Urine Bilirubin Urine Urobilinogen Ur Leukocyte Esterase Ur Random Creatinine Ur Random Sodium Urine Glucose Influenza A (Rapid) Influenza B (Rapid) Assessment: 1. Pneumonia, bilateral, suspect viral or atypical bacterial 2. Lung nodule 3. left ankle pain ?gout Plan: 1. continue ceftriaxone and azithromycin, viral studies pending 2. indomethacin 3. recheck CT to follow up nodule as outpatient Discussed with Sukhjinder NOBLE
--- NOTE | 2016-11-01 11:14 | PN ---
Subjective Date of Service: 11/01/16 Interval History: This is a 76 yo gentleman with DM, HTN, HLD, and BPH who presented yesterday with c/o cough/SOB. CT suggestive of a PNA, but multiple subcentimeter nodules noted. Patient reports near resolution of his cough and improvement of his dyspnea. No fevers/chills. He reports that his gout is flaring and is requesting Indocin. He has pain and swelling in his L foot and ankle c/w prior episodes of gout. Objective Active Medications: Acetaminophen (Tylenol Tab*) 650 mg PO Q4H PRN PRN Reason: FEVER/PAIN Aspirin (Aspirin Ec Low Dose*) 81 mg PO DAILY [facility] Last Admin: 11/01/16 09:16 Dose: 81 mg Atorvastatin Calcium (Lipitor*) 40 mg PO QAM [facility] Last Admin: 11/01/16 09:16 Dose: 40 mg Dextrose (D50w Syringe 50 Ml*) 12.5 gm IV PUSH .FOR FS < 60 - SS PRN PRN Reason: FS < 60 Heparin Sodium (Porcine) (Heparin Vial(*)) 5,000 units SUBCUT Q8HR [facility] Last Admin: 11/01/16 05:31 Dose: 5,000 units Ceftriaxone Sodium 1,000 mg/ (Sodium Chloride) 50 mls @ 200 mls/hr IVPB Q24H [facility] Last Admin: 10/31/16 15:20 Dose: 200 mls/hr Azithromycin 500 mg/ Sodium (Chloride) 250 mls @ 250 mls/hr IVPB Q24H [facility] Last Admin: 10/31/16 16:16 Dose: 250 mls/hr Sodium Chloride (Ns 0.9% 1000 Ml*) 1,000 mls @ 100 mls/hr IV PER RATE [facility] Last Admin: 10/31/16 18:31 Dose: 100 mls/hr Indomethacin (Indocin Cap*) 25 mg PO TID [facility] Insulin Glargine (Lantus(*)) 60 units SUBCUT BEDTIME [facility] Last Admin: 10/31/16 22:05 Dose: 60 units Insulin Human Lispro (Humalog*) 0 units SUBCUT AC [facility] PRN Reason: Protocol Last Admin: 11/01/16 09:15 Dose: Not Given Metoprolol Tartrate (Lopressor Tab*) 25 mg PO DAILY [facility] Last Admin: 11/01/16 09:16 Dose: 25 mg Vital Signs: Temp Pulse Resp BP Pulse Ox 98.3 F 87 18 123/44 96 11/01/16 07:24 11/01/16 07:24 11/01/16 07:24 11/01/16 07:24 11/01/16 08:26 Oxygen Devices in Use Now: None Appearance: Well appearing. Accompanied by his and daughter Respiratory: Symmetrical Chest Expansion and Respiratory Effort, Clear to Auscultation Cardiovascular: NL Sounds; No Murmurs; No JVD, RRR Abdominal: NL Sounds; No Tenderness; No Distention Extremities: No Edema Skin: No Rash or Ulcers Neurological: Alert and Oriented x 3 Result Diagrams: 11/01/16 04:53 11/01/16 04:53 Additional Lab and Data: . Microbiology and Other Data: Microbiology 10/31/16 18:11 Respiratory Syncytial Virus Ag - Final Nasopharyngeal Negative RSV 10/31/16 15:45 Legionella Urinary Antigen - Final Urine Negative Legionella Streptococcus pneumoniae Ag Screen - Final Negative S. pneumo Antigen 10/31/16 13:45 Influenza Types A,B Antigen (SILVANA) - Final Nasal Specimen received for Influenza A/B Molecular testing Diagnostic Imaging: CT chest - patchy, nodular density likely infectious. Several subcentimeter nodules Assess/Plan/Problems-Billing Assessment: This is a 76 yo gentleman with DM, HTN, HLD and BPH who presented with c/o cough and SOB after no improvement with 2days of oral Levaquin. - Patient Problems (1) Pneumonia Comment: Improving with ceftriaxone/azithro ?atypical pathogen Neg legionella, RSV, influenza and strep pneumo Blood cultures neg Cont current abx (2) VIRGIE (acute kidney injury) Comment: Resolved Secondary to hypovolemia in the setting of continuing diuretics with acute illness (3) Lung nodules Comment: Multiple small nodules noted, largest 7mm Oncology consult has been requested Patient will require repeat imaging in 3-6 months (4) Gout flare Comment: Start indomethacin (5) BPH (benign prostatic hyperplasia) (6) Diabetes Comment: IDDM Good glycemic control cont Lantus and SS Humalog (7) HTN (hypertension) Comment: Now normotensive, previously hypotensive HCTZ/irbesartan has been held (8) HLD (hyperlipidemia) (9) Full code status (10) DVT prophylaxis Comment: SQ Heparin Status and Disposition: Inpatient. Anticipate likely dc tomorrow
[2016-11-01] MEDS: Indomethacin CAP* 25 MG CAP PO SCH ×2 (13:14→21:15)
[2016-11-01] MEDS: cefTRIAXone VIAL(*) 1,000 MG in NS 0.9% 50 ML* 50 ML IVPB SCH (14:28)
[2016-11-01] MEDS: Azithromycin IV(*) 500 MG in NS 0.9% 250 ML* 250 ML IVPB SCH (15:10)
--- NOTE | 2016-11-01 17:35 | ED ---
Pratibha Ceballos Matthew, scribed for Terrence Zamorano MD on 10/31/16 at 1125 . Complex/Multi-Sys Presentation - HPI Summary HPI Summary: A 76 y/o male presents to the ED with hypotension since this morning. His BP was measured at 88/42, which prompted him to present to the ED. He has been regularly checking his blood pressure throughout the day. Associated symptoms today include lightheadedness, general weakness, and night sweats. He denies dizziness, SOB, and coughing. The noted that the patient did not take his insulin last night and subsequently did not have night sweats. Hx of enlarged prostate. - History Of Current Complaint Chief Complaint: EDWeakness Time Seen by Provider: 10/31/16 09:18 Hx Obtained From: Patient Onset/Duration: Lasting Hours, Still Present Timing: Constant Severity Currently: Mild Severity Initially: Mild Location: Negative Associated Signs And Symptoms: Positive: Diaphoresis, Other - Lightheadedness, general weakness,. Negative: Dizziness, SOB, Cough - Allergies/Home Medications Allergies/Adverse Reactions: Allergies Allergy/AdvReac Type Severity Reaction Status Date / Time Adhesive Tape Allergy Rash Verified 01/18/16 08:55 PMH/Surg Hx/FS Hx/Imm Hx Endocrine/Hematology History: Reports: Hx Diabetes - TYPE 2 Cardiovascular History: Reports: Hx Hypertension - CONTROL WITH MED, Other Cardiovascular Problems/Disorders - CHOLESTEROL CONTROL WITH MEDS Respiratory History: Reports: Other Respiratory Problems/Disorders - HX OF PNEUMONIA LAST TIME ABOUT 3 YEARS AGO History: Reports: Hx Kidney Stones - HX OF, Other Problems/Disorders - ENLARGE PROSTATE Sensory History: Reports: Hx Cataracts - BILATERAL, Hx Contacts or Glasses - GLASSES Denies: Hx Hearing Aid Opthamlomology History: Reports: Hx Cataracts - BILATERAL, Hx Contacts or Glasses - GLASSES - Surgical History Surgery Procedure, Year, and Place: UMBILICAL HERNIA X 2 ABOUT 15 YEARS AGO, [facility]. 07/2008 LEFT ULNAR NERVE DECOMPRESSION, [facility]. 09/2008 [facility] LEFT RENAL CALCULUS WITH LEFT URETERAL STENT INSERTION, [facility]. 2015 RETINA SURGERY X 2 RIGHT EYE, [place] Hx Anesthesia Reactions: No Infectious Disease History: No Infectious Disease History: Denies: Traveled Outside the [place] in Last 30 Days - Family History Known Family History: Positive: Cardiac Disease, Hypertension, Diabetes - Social History Alcohol Use: None Substance Use Type: Reports: None Smoking Status (MU): Former Smoker Type: Cigarettes Amount Used/How Often: 2 PPD Length of Time of Smoking/Using Tobacco: 25+ YEAR Have You Smoked in the Last Year: No Review of Systems Positive: Skin Diaphoresis Eyes: Negative ENT: Negative Cardiovascular: Negative Respiratory: Negative Negative: Shortness Of Breath, Cough Gastrointestinal: Negative Genitourinary: Negative Musculoskeletal: Negative Skin: Negative Neurological: Other - lightheadedness Positive: Weakness Psychological: Normal All Other Systems Reviewed And Are Negative: Yes Physical Exam Triage Information Reviewed: Yes Vital Signs On Initial Exam: Initial Vitals Temp Pulse Resp BP Pulse Ox 98.7 F 97 18 128/54 97 10/31/16 09:18 10/31/16 09:18 10/31/16 09:18 10/31/16 09:18 10/31/16 09:18 Vital Signs Reviewed: Yes Appearance: Positive: Well-Appearing, No Pain Distress Skin: Positive: Warm, Skin Color Reflects Adequate Perfusion, Dry Head/Face: Positive: Normal Head/Face Inspection Eyes: Positive: EOMI, TRINI ENT: Positive: Normal ENT inspection Neck: Positive: Supple, Nontender Respiratory/Lung Sounds: Positive: Clear to Auscultation, Breath Sounds Present Cardiovascular: Positive: RRR. Negative: Murmur Abdomen Description: Positive: Nontender, Soft Bowel Sounds: Positive: Present Musculoskeletal: Positive: Strength/ROM Intact Neurological: Positive: Alert, Oriented to Person Place, Time Psychiatric: Positive: Affect/Mood Appropriate - [place] Coma Scale Coma Scale Total: 15 Diagnostics - Vital Signs Vital Signs Temp Pulse Resp BP Pulse Ox 10/31/16 10:06 21 118/55 10/31/16 10:00 23 10/31/16 09:36 92 18 123/54 95 10/31/16 09:34 93 93 10/31/16 09:18 98.7 F 97 18 128/54 97 - Laboratory Lab Results: Lab Results 10/31/16 10/31/16 10/31/16 Range/Units 10:05 10:05 10:05 WBC 17.3 H (3.5-10.8) 10^3/ul RBC 4.39 (4.0-5.4) 10^6/ul Hgb 13.2 L (14.0-18.0) g/dl Hct 40 L (42-52) % MCV 91 (80-94) fL MCH 30 (27-31) pg MCHC 33 (31-36) g/dl RDW 14 (10.5-15) % Plt Count 327 (150-450) 10^3/ul MPV 8 (7.4-10.4) um3 Neut % (Auto) 85.2 H (38-83) % Lymph % (Auto) 7.1 L (25-47) % Smith % (Auto) 5.5 (1-9) % Eos % (Auto) 1.2 (0-6) % Baso % (Auto) 1.0 (0-2) % Absolute Neuts (auto) 14.7 H (1.5-7.7) 10^3/ul Absolute Lymphs (auto) 1.2 (1.0-4.8) 10^3/ul Absolute Monos (auto) 0.9 H (0-0.8) 10^3/ul Absolute Eos (auto) 0.2 (0-0.6) 10^3/ul Absolute Basos (auto) 0.2 (0-0.2) 10^3/ul Absolute Nucleated RBC 0.01 10^3/ul Nucleated RBC % 0 INR (Anticoag Therapy) 1.14 H (0.89-1.11) Sodium 132 L (133-145) mmol/L Potassium TNP Chloride 101 (101-111) mmol/L Carbon Dioxide 20 L (22-32) mmol/L Anion Gap TNP BUN 37 H (6-24) mg/dL Creatinine 1.31 H (0.67-1.17) mg/dL Est GFR ( Amer) 68.6 (>60) Est GFR (Non-Af Amer) 53.3 (>60) BUN/Creatinine Ratio 28.2 H (8-20) Glucose 174 H (70-100) mg/dL Lactic Acid (0.5-2.0) mmol/L Calcium 9.7 (8.6-10.3) mg/dL Total Bilirubin 0.70 (0.2-1.0) mg/dL AST Pending ALT 14 (7-52) U/L Alkaline Phosphatase 102 (34-104) U/L Troponin I 0.03 (<0.04) ng/mL Total Protein 8.1 (6.4-8.9) g/dL Albumin 3.6 (3.2-5.2) g/dL Globulin 4.5 H (2-4) g/dL Albumin/Globulin Ratio 0.8 L (1-3) /08/18 Range/Units 10:05 WBC (3.5-10.8) 10^3/ul RBC (4.0-5.4) 10^6/ul Hgb (14.0-18.0) g/dl Hct (42-52) % MCV (80-94) fL MCH (27-31) pg MCHC (31-36) g/dl RDW (10.5-15) % Plt Count (150-450) 10^3/ul MPV (7.4-10.4) um3 Neut % (Auto) (38-83) % Lymph % (Auto) (25-47) % Smith % (Auto) (1-9) % Eos % (Auto) (0-6) % Baso % (Auto) (0-2) % Absolute Neuts (auto) (1.5-7.7) 10^3/ul Absolute Lymphs (auto) (1.0-4.8) 10^3/ul Absolute Monos (auto) (0-0.8) 10^3/ul Absolute Eos (auto) (0-0.6) 10^3/ul Absolute Basos (auto) (0-0.2) 10^3/ul Absolute Nucleated RBC 10^3/ul Nucleated RBC % INR (Anticoag Therapy) (0.89-1.11) Sodium (133-145) mmol/L Potassium Chloride (101-111) mmol/L Carbon Dioxide (22-32) mmol/L Anion Gap BUN (6-24) mg/dL Creatinine (0.67-1.17) mg/dL Est GFR ( Amer) (>60) Est GFR (Non-Af Amer) (>60) BUN/Creatinine Ratio (8-20) Glucose (70-100) mg/dL Lactic Acid 0.9 (0.5-2.0) mmol/L Calcium (8.6-10.3) mg/dL Total Bilirubin (0.2-1.0) mg/dL AST ALT (7-52) U/L Alkaline Phosphatase (34-104) U/L Troponin I (<0.04) ng/mL Total Protein (6.4-8.9) g/dL Albumin (3.2-5.2) g/dL Globulin (2-4) g/dL Albumin/Globulin Ratio (1-3) Result Diagrams: 11/01/16 04:53 11/01/16 04:53 Lab Statement: Any lab studies that have been ordered have been reviewed, and results considered in the medical decision making process. - EKG 09:24 Cardiac Rate: NL - 97 bpm EKG Rhythm: Sinus Rhythm EKG Interpretation: Borderline sinus tachycardia Complex Multi-Symp Course/Dx Course Of Treatment: Mr. Rainey has essentially not improved since his visit on Sunday. He is still having episodes of low BP and he still has a leukocytosis. He has had a weight loss over the last few months. I am afraid that we are missing something. - Diagnoses Provider Diagnoses: Hypotension, Leukocytosis - Physician Notifications Discussed Care Of Patient With: Dr. Tarango (Hospitalist) at 12:01 -- Notified of patient's history and will admit the patient into his services. Discharge - Discharge Plan Condition: Stable Disposition: ADMITTED TO [facility] documentation as recorded by the Pratibha cueto Matthew accurately reflects the service I personally performed and the decisions made by me, Terrence Zamorano MD.
[2016-11-01] MEDS: Insulin GLARGINE(*) 1 UNITS UNIT SUBCUT SCH (21:16)
[2016-11-02] MEDS: Heparin VIAL(*) 5000 UNITS/ML VIAL (FIVE THOUSAND) SUBCUT SCH (05:41)
[2016-11-02 08:01] LABS: Hematocrit 39 % (42-52); Mean Corpuscular HGB Conc 33 g/dl (31-36); Mean Corpuscular Hemoglobin 30 pg (27-31); Mean Corpuscular Volume 90 fL (80-94); Mean Platelet Volume 7 um3 (7.4-10.4); Red Blood Count 4.33 10^6/ul (4.0-5.4); Red Cell Distribution Width 14 % (10.5-15); White Blood Count 10.6 10^3/ul (3.5-10.8)
[2016-11-02 08:09] LABS: BUN/Creatinine Ratio 24.5 (8-20); Calcium 9.5 mg/dL (8.6-10.3); EGFR African American 95.9 (>60); EGFR Non-African American 74.6 (>60); Potassium 4.1 mmol/L (3.5-5.0)
[2016-11-02 08:32] VITALS: BP 128/56
[2016-11-02] MEDS: Indomethacin CAP* 25 MG CAP PO SCH (08:38)
[2016-11-02] MEDS: Metoprolol Tartrate TAB* 25 MG PO SCH (08:38)
[2016-11-02] MEDS: Aspirin EC Low Dose* 81 MG TAB.EC PO SCH (08:38)
[2016-11-02] MEDS: Insulin LISPRO* 1 UNITS UNIT SUBCUT SCH (08:38)
[2016-11-02] MEDS: Atorvastatin* 40 MG TAB PO SCH (08:38)
--- NOTE | 2016-11-02 10:35 | DS ---
DISCHARGE SUMMARY: DATE OF ADMISSION: 10/31/16 DATE OF DISCHARGE: 11/02/16 PRIMARY CARE PROVIDER: Zia Green MD CONSULTING INFECTIOUS DISEASE SPECIALIST: Fuad Schroeder MD DISCHARGING PROVIDER: REAL Mora SUPERVISING PHYSICIAN: Liz Clinton DO * (DICTATED BY REAL MORA) PRIMARY DISCHARGE DIAGNOSES: 1. Pneumonia. 2. Lung nodules - require followup CT in 3 to 6 months. 3. Acute kidney injury secondary to hypovolemia - resolved. 4. Gout flare - resolved. SECONDARY DISCHARGE DIAGNOSES: 1. Benign prostatic hypertrophy. 2. Insulin-dependent diabetes. 3. Hypertension with recent hypotension - recommend medication changes as outlined above. 4. Hyperlipidemia. DISCHARGE MEDICATIONS: 1. Aspirin 81 mg p.o. daily. 2. Atorvastatin 40 mg p.o. daily. 3. Azithromycin 250 mg p.o. daily x4 days. 4. Invokana 100 mg p.o. daily. 5. Cefdinir 300 mg p.o. b.i.d. x7 days. 6. Indomethacin 25 mg p.o. t.i.d. as needed for gout flare. 7. Lantus 60 units subcu daily. 8. Irbesartan 300 mg p.o. daily. 9. Metformin extended release 500 mg p.o. daily. 10. Metoprolol 25 mg p.o. daily. 11. Multivitamin 1 tablet p.o. daily. Medication changes: 1. Azithromycin x4 days. 2. Cefdinir x7 days. 3. Stop hydrochlorothiazide. 4. Stop amlodipine. 5. Stop Humalog at dinner. HOSPITAL IMAGIN. CT of the chest demonstrates a pattern of central lobular nodularity suggestive of an inflammatory or infectious process with peripheral and basilar predominance. Additionally, there are several larger nodules measuring up to 7 mm in size. Recommendation for followup and management per incidentally detected pulmonary nodule guidelines. 2. EKG demonstrates a normal sinus rhythm. HOSPITAL COURSE: This is a very pleasant 76-year-old gentleman with history of insulin-dependent diabetes, hypertension, BPH, and hyperlipidemia, who presented to the emergency department with complaints of cough and shortness of breath. The patient had been seen in the emergency department approximately 3 days prior, and at that time, chest x-ray was unremarkable, but he did have a significant leukocytosis with a white blood cell count of 18,000. The patient was subsequently discharged with Levaquin for suspected pneumonia. Unfortunately, his symptoms continued to get worse after discharge and he returned to the emergency department for further evaluation. When he first presented to the emergency department, he was afebrile and normotensive. He reported that he had been having significant chills at home and intermittent fevers. He was also noted to be intermittently hypotensive, and he had been continuing all of his typical antihypertensives at home. He also describes significant body aches and an unexplained weight loss of 15 pounds over the last several months. CT of the chest was performed, which demonstrated a patchy infiltrate consistent with a pneumonia, potentially an atypical pathogen , as well as several nodules measuring up to 7 mm. Nodules did not appear to be associated with the infiltrate and felt to be an incidental finding. The patient was subsequently admitted for pneumonia after failing outpatient therapy. He did not require significant oxygen supplementation. White blood cell count improved to within normal limits by the time of discharge. He was empirically treated with ceftriaxone and azithromycin. Influenza testing was negative. Strep pneumo antigen screening was negative, Legionella antigen screening was negative as was RSV. Sputum culture was unable to be collected as the patient's cough improved rather significantly and his blood cultures remained negative. Consultation was requested from Infectious Disease specialist and the patient was evaluated by Dr. Fuad Schroeder. He agreed with empiric therapy with ceftriaxone and azithromycin. The patient clinically improved with ceftriaxone and azithromycin. His cough resolved completely as did his dyspnea. Day of discharge, he ambulated throughout the floor without complaints of shortness of breath or hypoxia. Of note, the patient was normotensive throughout his hospital stay even as his acute complaints resolved. He did not receive any of his antihypertensive medications during his hospital stay and he was on 4 agents at home including hydrochlorothiazide, irbesartan, metoprolol, and amlodipine. Recommended discontinuing his hydrochlorothiazide and amlodipine at the time of discharge and continuing to monitor his blood pressures at home. Additionally, his glucose was well controlled throughout his hospital stay and he required very little Humalog coverage. He typically takes 15 units of Humalog with dinnertime as well as 60 units of Lantus in addition to Invokana and metformin. Recent hemoglobin A1c was not available for reference. Based on his insulin needs during his hospital stay and relative compliance to dietary recommendations at home, we recommend discontinuing his dinnertime Humalog, continuing his Lantus, Invokana and metformin with close followup with his primary care provider and continued fasting glucose monitoring. DISPOSITION: The patient is being discharged to home with medication changes as outlined above. Recommend four days of azithromycin and 7 days of cefdinir. Close followup is required with his primary care provider. Repeat CT of the chest in 3 to 6 months to establish stability of incidental lung nodules is also recommended. REAL MORA CC: Zia Green MD* [id number]/[facility] #: [id number] RICKIE
[2016-11-04 19:41] LABS: FHMPV Source NASOPHARYNGEAL; Human Metapneumovirus (hMPV) NOT DETECTED
== END 2016-11-02 09:20 | disposition home or self-care (01) | DRG 194 ==
LOC: ED 09:15 → MED 12:43 → OBSVTOIN 11-01 11:58
PROVIDERS: ADMIT Internal Medicine; ATTEND Hospitalist
DX: J18.9 Pneumonia, unspecified organism (principal); N17.9 Acute kidney failure, unspecified; I95.9 Hypotension, unspecified; E86.1 Hypovolemia; E11.9 Type 2 diabetes mellitus without complications; I10 Essential (primary) hypertension; E78.5 Hyperlipidemia, unspecified; N40.0 Benign prostatic hyperplasia without lower urinary tract symptoms; M10.9 Gout, unspecified; R63.4 Abnormal weight loss; R91.8 Other nonspecific abnormal finding of lung field; Z87.442 Personal history of urinary calculi; Z88.8 Allergy status to other drugs, medicaments and biological substances; Z87.891 Personal history of nicotine dependence; Z85.828 Personal history of other malignant neoplasm of skin; Z98.42 Cataract extraction status, left eye; Z98.41 Cataract extraction status, right eye; Z80.42 Family history of malignant neoplasm of prostate; Z82.49 Family history of ischemic heart disease and other diseases of the circulatory system; Z79.4 Long term (current) use of insulin; Z79.82 Long term (current) use of aspirin; Z68.26 Body mass index [BMI] 26.0-26.9, adult
CPT/HCPCS: 36415; 71260; 80048; 80053; 81003; 82570; 83605; 84300; 84484; 85025; 85610; 87040; 87086; 87385; 87502; 87798; 87807; 87899; 93005; 94760; A9270-GY; G0378; J0456; J0696; J1644; Q9967

== ENCOUNTER 2016-11-03 20:48 | Inpatient (IN) | payer MEDICARE ==
[2016-11-03] MEDS ORDERED: Aspirin Low Dose CHEW TAB* 81 MG PO ONE (22:49)
[2016-11-03] MEDS ORDERED: Acetaminophen TAB* 325 MG PO ONE (22:51)
[2016-11-04 00:36] LABS: Hematocrit 36 % (42-52); Mean Corpuscular HGB Conc 33 g/dl (31-36); Mean Corpuscular Hemoglobin 30 pg (27-31); Mean Corpuscular Volume 89 fL (80-94); Mean Platelet Volume 7 um3 (7.4-10.4); Red Blood Count 4.02 10^6/ul (4.0-5.4); Red Cell Distribution Width 14 % (10.5-15); White Blood Count 17.1 10^3/ul (3.5-10.8)
[2016-11-04 00:47] LABS: Albumin 3.3 g/dL (3.2-5.2); BUN/Creatinine Ratio 20.6 (8-20); Calcium 9.3 mg/dL (8.6-10.3); EGFR African American 91.6 (>60); EGFR Non-African American 71.2 (>60); Globulin 3.7 g/dL (2-4); Potassium 3.9 mmol/L (3.5-5.0); Total Bilirubin 0.4 mg/dL (0.2-1.0)
[2016-11-04 00:51] LABS: Troponin I 0.04 ng/mL (<0.04)
[2016-11-04] MEDS ORDERED: Piperac/Tazob 3.375 gm in NS* 3.375 GM/100 ML BAG IVPB ONE (01:09)
--- NOTE | 2016-11-04 02:34 | ED ---
Trent Ceballos Rebecca, scribed for [email or web address] on 11/03/16 at 2233 . HPI Febrile Illness - HPI Summary HPI Summary: Pt is a 76 y/o M who presents to ED c/o febrile illness. Fever began today at 1700 and has been constant since onset. Reports fever was 102.8 at its highest, [employer]. Sx aggravated and alleviated by nothing. Has not taken anything to treat the tylenol today. Denies any other sx, including abd pain. Pt was D/C yesterday with a Dx of "respiratory infection" and was placed on Abx after being admitted for 3 days. Was evaluated last Sunday (1 week ago) and was also put on Abx then. Pt is currently on 2 courses of Abx (Zithromax, - History of Current Complaint Chief Complaint: EDGeneral Time Seen by Provider: 11/03/16 22:18 Hx Obtained From: Patient Onset/Duration: Started Hours Ago, Still Present Time of Onset: 17:00 Timing: Constant Temperature: 102.8 F Current Severity: None Pain Intensity: 0 Pain Scale Used: 0-10 Numeric Aggravating Factors: Nothing Alleviating Factors: Nothing Associated Signs and Symptoms: Negative - Additional Pertinent History Primary Care Physician: [id number] - Allergy/Home Medications Allergies/Adverse Reactions: Allergies Allergy/AdvReac Type Severity Reaction Status Date / Time Adhesive Tape Allergy Rash Verified 01/18/16 08:55 PMH/Surg Hx/FS Hx/Imm Hx Endocrine/Hematology History: Reports: Hx Diabetes - TYPE 2 Cardiovascular History: Reports: Hx Hypertension - CONTROL WITH MED, Other Cardiovascular Problems/Disorders - CHOLESTEROL CONTROL WITH MEDS Respiratory History: Reports: Other Respiratory Problems/Disorders - HX OF PNEUMONIA LAST TIME ABOUT 3 YEARS AGO History: Reports: Hx Kidney Stones - HX OF, Other Problems/Disorders - ENLARGE PROSTATE Sensory History: Reports: Hx Cataracts - BILATERAL, Hx Contacts or Glasses - GLASSES Denies: Hx Hearing Aid Opthamlomology History: Reports: Hx Cataracts - BILATERAL, Hx Contacts or Glasses - GLASSES - Surgical History Surgery Procedure, Year, and Place: UMBILICAL HERNIA X 2 ABOUT 15 YEARS AGO, [facility]. 07/2008 LEFT ULNAR NERVE DECOMPRESSION, [facility]. 09/2008 ESWL LEFT RENAL CALCULUS WITH LEFT URETERAL STENT INSERTION, [facility]. 2015 RETINA SURGERY X 2 RIGHT EYE, [place] Hx Anesthesia Reactions: No Infectious Disease History: No Infectious Disease History: Denies: Traveled Outside the [place] in Last 30 Days - Family History Known Family History: Positive: Cardiac Disease, Hypertension, Diabetes - Social History Alcohol Use: None Substance Use Type: Reports: None Smoking Status (MU): Former Smoker Type: Cigarettes Amount Used/How Often: 2 PPD Length of Time of Smoking/Using Tobacco: 25+ YEAR Have You Smoked in the Last Year: No Review of Systems Positive: Fever Negative: Abdominal Pain All Other Systems Reviewed And Are Negative: Yes Physical Exam Triage Information Reviewed: Yes Vital Signs On Initial Exam: Initial Vitals Temp Pulse Resp BP Pulse Ox 102.7 F 117 20 159/63 94 11/03/16 20:52 11/03/16 20:52 11/03/16 20:52 11/03/16 20:52 11/03/16 20:52 Vital Signs Reviewed: Yes Appearance: Positive: Well-Appearing, No Pain Distress Skin: Positive: Warm, Skin Color Reflects Adequate Perfusion, Dry Head/Face: Positive: Normal Head/Face Inspection Eyes: Positive: EOMI, TRINI Neck: Positive: Supple, Nontender Respiratory/Lung Sounds: Positive: Clear to Auscultation, Breath Sounds Present Cardiovascular: Positive: RRR, Pulses are Symmetrical in both Upper and Lower Extremities Abdomen Description: Positive: Nontender, Soft Bowel Sounds: Positive: Present Musculoskeletal: Positive: Normal, Strength/ROM Intact Neurological: Positive: Normal, Sensory/Motor Intact, Alert, Oriented to Person Place, Time Diagnostics - Vital Signs Vital Signs Temp Pulse Resp BP Pulse Ox 11/03/16 22:29 101.3 F 106 18 143/59 92 11/03/16 22:04 101.3 F 110 20 155/58 92 11/03/16 20:52 102.7 F 117 20 159/63 94 - Laboratory Result Diagrams: 11/04/16 00:18 11/04/16 00:18 Lab Statement: Any lab studies that have been ordered have been reviewed, and results considered in the medical decision making process. - Radiology CXR Radiology Interpretation Completed By: ED Physician - Bilateral PNA - EKG 2311 Cardiac Rate: Tachycardia - 107 bpm EKG Rhythm: Sinus Tachycardia Course/Dx - Course Assessment/Plan: Pt came to the ED with SOB and fever. Labs and CXR was done. Showed bilateral PNA. Positive troponin with spiked fever. Pt will be admitted to hospitalist services for further management. - Diagnoses Provider Diagnoses: PNA (pneumonia), Elevated troponin - Provider Notifications Discussed Care Of Patient With: Dr. Tyler, hospitalist, who accepts pt for admission for further management. Time Discussed With Above Provider: 02:24 Discharge - Discharge Plan Condition: Good Disposition: ADMITTED TO [facility] The documentation as recorded by the Trent cueto Rebecca accurately reflects the service I personally performed and the decisions made by Alia castillo Emmanuel.
[2016-11-04] MEDS ORDERED: Acetaminophen TAB* 325 MG PO PRN (02:58)
[2016-11-04] MEDS ORDERED: Dextrose 50% Syringe 50 ML* 25 GM/50 ML SYRINGE IV PUSH PRN (03:16)
[2016-11-04] MEDS: Enoxaparin(*) 40 MG/0.4 ML SYR SUBCUT SCH (04:31)
[2016-11-04] MEDS: Piperac/Tazob 3.375 gm in NS* 3.375 GM/100 ML BAG IVPB SCH ×3 (06:00→21:59)
[2016-11-04 06:51] LABS: Hematocrit 34 % (42-52); Hemoglobin 11.4 g/dl (14.0-18.0); Mean Corpuscular HGB Conc 34 g/dl (31-36); Mean Corpuscular Hemoglobin 30 pg (27-31); Mean Corpuscular Volume 90 fL (80-94); Mean Platelet Volume 7 um3 (7.4-10.4); Red Blood Count 3.75 10^6/ul (4.0-5.4); Red Cell Distribution Width 14 % (10.5-15); White Blood Count 13.8 10^3/ul (3.5-10.8)
[2016-11-04] MEDS: Aspirin EC Low Dose* 81 MG TAB.EC PO SCH (07:43)
[2016-11-04] MEDS: Losartan TAB* 25 MG PO SCH (07:43)
[2016-11-04] MEDS: Multivitamins/Minerals TAB PO SCH (07:44)
[2016-11-04] MEDS: Metoprolol Succinate XL TAB* 25 MG PO SCH (07:44)
[2016-11-04] MEDS: metFORMIN* 500 MG TAB PO SCH ×2 (07:44→16:23)
[2016-11-04] MEDS: Insulin LISPRO* 1 UNITS UNIT SUBCUT SCH ×4 (07:45→21:30)
[2016-11-04] MEDS: PTO:Canagliflozin (NF) 100 MG TAB PO SCH (07:47)
--- NOTE | 2016-11-04 08:53 | RAD ---
INDICATION: Fever COMPARISON: Similar chest x-ray dated October 27, 2016 TECHNIQUE: Single AP portable view of the chest was obtained. FINDINGS: Image quality is compromised due to the relative inferiority of a portable chest x-ray. The heart and mediastinum exhibit normal size and contour. There are patchy densities overlying the bilateral lungs. Visualized bones are normal for the patient's age. IMPRESSION: Mild patchy densities overlying the bilateral lungs could be the consequence of pulmonary edema or simply poor penetration of a portable chest x-ray.
--- NOTE | 2016-11-04 09:34 | RAD ---
INDICATION: Worsening pneumonia COMPARISON: Similar CT examination October 31, 2016 TECHNIQUE: Axial source images of the chest were acquired without intravenous contrast from just above the lung apices to the base of the diaphragm. Coronal and sagittal reconstructed images were acquired. FINDINGS: Similar to the previous CT of the chest there is diffuse interlobular septal thickening and patchy densities, predominantly in the peripheral lung and involving all 5 lobes. At the right upper lobe (image 32 of 75) there is a 9 mm pulmonary nodule that was not seen on the previous CT of the chest 4 days earlier. At the right middle lobe (image 42) there is a 7 mm pulmonary nodule that is unchanged. In the dependent portion of the right lower lobe (image 40) there is a focus of pleural thickening measuring 8 mm in thickness and approximately 2.7 cm in length. This is new from the previous CT examination. At the posterior aspect of the left upper lobe (image 22) there is a stable 6 mm pleural-based nodule. At the posterior aspect of the left lower lobe there is a 4 mm pleural-based nodule (image 43) unchanged from the previous CT examination. The heart is normal in size. There is no evidence of pericardial effusion. There is no evidence of aortic aneurysm or dissection. There is mild calcified atherosclerosis at the arch of the aorta, aortic ring and to a lesser extent the coronary arteries. There are several top normal mediastinal lymph nodes that are unchanged from the previous CT examination and do not exhibit pathologic enlargement. The upper esophagus exhibits wall thickening up to 7 mm in thickness (image 17 of 75). This is similar to the previous CT examination. Degenerative changes of the thoracic spine include loss of intervertebral disc height. A stable lucency at the inferior endplate of the T11 vertebral body probably represents a Schmorl's node. Limited views of the upper abdomen show no acute abnormalities. IMPRESSION: 1. Overall there has been interval worsening of aeration relative to the October 31, 2016 CT of the chest. Again seen are multiple pulmonary nodules as well as at least one new right upper lobe pulmonary nodule measuring 7 mm. The time course of the appearance of this nodule would favor an infectious or inflammatory etiology as opposed to a metastatic focus. 2. Questionable circumferential thickening of the upper esophagus. Please correlate to symptoms of esophagitis.
[2016-11-04 11:00] LABS: C Reactive Protein 66.39 mg/L (< 5.00)
--- NOTE | 2016-11-04 11:01 | PN ---
Subjective Date of Service: 11/04/16 Interval History: This is a 76 yo gentleman who was discharged just 2 days ago after treatment for PNA. He was improving with Ceftriaxone and Azithromycin during his last hospital stay and was discharged with Cefdinir and azithromycin which he reports he picked up on his way home from the hospital and has been taking as directed. He states that he felt well for 1 day after returning home but then developed fevers again and feelings of malaise. No sig cough or dyspnea. Patient reports he is feeling slightly better this am, but didn't get much sleep last night. Denies cough or SOB. Objective Active Medications: Acetaminophen (Tylenol Tab*) 650 mg PO Q4H PRN PRN Reason: FEVER/HEADACHE Aspirin (Aspirin Ec Low Dose*) 81 mg PO DAILY [facility] Last Admin: 11/04/16 07:43 Dose: 81 mg Atorvastatin Calcium (Lipitor*) 40 mg PO 2100 [facility] Canagliflozin (Invokana (Nf)) 100 mg PO QAM [facility] Last Admin: 11/04/16 07:47 Dose: Not Given Dextrose (D50w Syringe 50 Ml*) 12.5 gm IV PUSH .FOR FS < 60 - SS PRN PRN Reason: FS < 60 Enoxaparin Sodium (Lovenox(*)) 40 mg SUBCUT Q24H [facility] Last Admin: 11/04/16 04:31 Dose: 40 mg Piperacillin Sod/Tazobactam Sod (Zosyn 3.375 Gm In Ns Premix*) 3.375 gm in 100 mls @ 25 mls/hr IVPB Q8H [facility] Last Admin: 11/04/16 06:00 Dose: 25 mls/hr Indomethacin (Indocin Cap*) 25 mg PO TID WITH MEALS PRN PRN Reason: PAIN/INFLAMMATION Insulin Glargine (Lantus(*)) 60 units SUBCUT BEDTIME [facility] Insulin Human Lispro (Humalog*) 0 units SUBCUT ACHS [facility] PRN Reason: Protocol Last Admin: 11/04/16 07:45 Dose: 2 units Losartan Potassium (Cozaar Tab*) 100 mg PO QAM [facility] Last Admin: 11/04/16 07:43 Dose: 100 mg Metformin HCl (Glucophage*) 250 mg PO BID WITH MEALS [facility] Last Admin: 11/04/16 07:44 Dose: 250 mg Metoprolol Succinate (Toprol Xl Tab*) 25 mg PO DAILY [facility] Last Admin: 11/04/16 07:44 Dose: 25 mg Multivitamins/Minerals (Theragran/Minerals Tab*) 1 tab PO DAILY [facility] Last Admin: 11/04/16 07:44 Dose: 1 tab Vital Signs: Temp Pulse Resp BP Pulse Ox 97.9 F 71 14 107/34 96 11/04/16 08:10 11/04/16 08:10 11/04/16 08:10 11/04/16 08:10 11/04/16 08:10 Oxygen Devices in Use Now: None Appearance: Fatigued, but otherwise well appearing in NAD Neck: NL Appearance and Movements; NL JVP Respiratory: Symmetrical Chest Expansion and Respiratory Effort, - - few crackles noted Cardiovascular: RRR Extremities: No Edema Skin: No Rash or Ulcers Neurological: Alert and Oriented x 3 Result Diagrams: 11/04/16 05:58 11/04/16 00:18 Diagnostic Imaging: CXR - poor quality, diffuse patchy densities CT chest - worsening diffuse infiltrate with multiple nodules at least one of which is new Assess/Plan/Problems-Billing Assessment: This is a very pleasant 76 yo gentleman with IDDM, gout, HTN, HLD, BPH who was recently admitted with PNA who returns with new fevers and malaise with evidence of worsening PNA. - Patient Problems (1) Pneumonia Comment: Unknown pathogen Neg legionella, RSV, influenza, strep pneumo, cryptococcus and histoplasma Previously improved with ceftriaxone/azithro but quickly failed when he was discharged with azithro/Cefdinir and had been previously treated with oral Levaquin Now improving with Zosyn again Afebrile since admission, improved WBC Requested pulm consult, patient would likely benefit from bronchoscopy, he is not producing sputum (2) Lung nodules Comment: Multiple small nodules noted, largest 9mm Repeat CT this am shows at least one new nodule more consistent with infectious or inflammatory process He has previously improved with abx, making infectious etiology more likely Requested pulm consult to consider bronchoscopy (3) BPH (benign prostatic hyperplasia) (4) Diabetes Comment: IDDM Good glycemic control cont Lantus and SS Humalog (5) HLD (hyperlipidemia) (6) HTN (hypertension) Comment: Normotensive Cont losartan and metoprolol (7) DVT prophylaxis Comment: SQ Lovenox (8) Full code status Status and Disposition: Inpatient. Pend pulm consult
[2016-11-04] MEDS: Insulin GLARGINE(*) 1 UNITS UNIT SUBCUT SCH (21:30)
[2016-11-04] MEDS: Atorvastatin* 40 MG TAB PO SCH (21:31)
--- NOTE | 2016-11-04 21:58 | HP ---
CC: Dr. Green HISTORY AND PHYSICAL: DATE OF ADMISSION: 11/04/16 CHIEF COMPLAINT: Fever. HISTORY OF PRESENT ILLNESS: Mr. Rainey is a 76-year-old man who was just discharged from this hospital 2 days prior to admission with diagnosis of pneumonia who returns to the emergency department this evening with fever to 102 and shortness of breath on exertion. The patient was discharged on with atypical pneumonia with no clear bacterial or fungal diagnosis after multiple tests. He had a CT that showed lung nodules in the 7 mm range as well as peripheral infiltrates. He had an Infectious Disease consult and had testing for Cryptococcal antigen and histoplasma. Nasal cultures for viral infections including adenovirus and flu. He did well on ceftriaxone and azithromycin and was discharged on cefdinir and azithromycin. However, the patient states he felt well when he was inpatient and on IV antibiotics, but as soon as he went home, he developed worsening dyspnea and dry cough without chest pain and fever is up to 102.4. On account of fever, he returned to the hospital. Further review of the hospital chart shows that he was negative for RSV, negative for urine antigen for strep and legionella, and negative influenza and blood cultures are negative today after 3 days of growth. PAST MEDICAL HISTORY: Includes gout, BPH, type 2 diabetes, hypertension, and hyperlipidemia. PAST SURGICAL HISTORY: Cataract extraction, right elbow surgery, and inguinal hernia repair. MEDICATIONS ON ADMISSION: 1. Aspirin 81 mg p.o. daily. 2. Atorvastatin 40 mg p.o. q.p.m. 3. Azithromycin 250 mg p.o. daily. 4. Invokana 100 mg p.o. q.a.m. 5. Cefdinir 300 mg p.o. b.i.d. 6. Indomethacin 25 mg p.o. daily t.i.d. p.r.n. gout. 7. Insulin glargine 60 units subcutaneous daily. 8. Irbesartan 300 mg p.o. q.a.m. 9. Metformin ER 500 mg p.o. daily. 10. Metoprolol 25 mg p.o. daily. 11. Multivitamin 1 tab p.o. daily. ALLERGIES: ADHESIVE TAPE. FAMILY HISTORY: Notable for mother of a ME. Father of prostate cancer. SOCIAL HISTORY: He is retired. He is . His is his healthcare proxy. He has children. He quit tobacco 35 years ago. No alcohol or drug use. REVIEW OF SYSTEMS: The patient denies any anorexia. He has been eating okay at home. The patient denies any chest pain or palpitations. The patient denies any hemoptysis. The patient denies any abdominal pain, nausea, vomiting , or diarrhea. Reminder of a 14-point review of systems is negative other than mentioned in the HPI. PHYSICAL EXAMINATION GENERAL: He is alert, in no acute distress. VITAL SIGNS: Temperature is 38.1, pulse 102, respirations 28, blood pressure 119/41, O2 sat is 91%. HEENT: Head is normocephalic, atraumatic. Sclerae anicteric. Pupils are equal , round, and reactive to light and accommodation. Oropharynx is moist with no lesions. NECK: No JVD. No carotid bruit. No thyromegaly. LUNGS: Shows rales at the basis bilaterally. HEART: Tachycardic. Regular. No murmurs. ABDOMEN: Soft, nontender, nondistended. Positive bowel sounds. No hepatosplenomegaly. EXTREMITIES: No peripheral edema. Dorsalis pedis pulses are 1+ bilaterally. NEUROLOGIC: Cranial nerves II through XII are intact. Motor strength is 5/5 throughout. Deep tendon reflexes are symmetric. LABORATORY DATA: Sodium 131, potassium 3.9, chloride 102, bicarbonate 21, BUN 21, creatinine is 1.02, glucose 230, calcium 9.3, AST 22, ALT 22, troponin 0.04 , lactic acid 1.4. White count 17.1, hemoglobin 12.0, hematocrit 36%, and platelets are 309. EKG sinus tachycardia. No ischemic ST-T wave changes. Chest x-ray is portable and shows bibasilar infiltrates. ASSESSMENT AND PLAN: 1. A 76-year-old man with some unusual atypical pneumonia, which has been resistant to bacteriological investigation who is failing to respond to outpatient treatment. The patient is already feeling better in the emergency department after one dose of Zosyn, so he will be continued on this while he is in the hospital. This should cover staph, strep, and haemophilus and we do not have to any clear evidence of need to cover pseudomonas or MRSA at this point. The patient will need to have a repeat Infectious Disease consultation, possibly Pulmonary consultation with bronchoscopy. I have sent for a sputum culture, which was not able to be obtained during the last hospital stay and may be helpful. 2. The patient also has a mild troponin elevation. We will follow him on telemetry with serial troponins and EKG. There is no acute coronary syndrome present at this time. 3. The patient wants to be full code in terms of cardiac resuscitation, but would not want intubation under any circumstances. 4. He is a high risk of deep vein thrombosis given his pulmonary situation and his activities, so he will be on subcutaneous Lovenox while he is here in the hospital. 5. For his diabetes, we will follow his fingersticks and continue him with oral outpatient regimen against additional subcutaneous insulin with sliding scale as needed. [id number]/[facility] #: [id number] RICKIE
[2016-11-05] MEDS: Piperac/Tazob 3.375 gm in NS* 3.375 GM/100 ML BAG IVPB SCH ×3 (05:02→21:56)
[2016-11-05] MEDS: Enoxaparin(*) 40 MG/0.4 ML SYR SUBCUT SCH (05:02)
[2016-11-05] MEDS: Metoprolol Succinate XL TAB* 25 MG PO SCH (07:44)
[2016-11-05] MEDS: Aspirin EC Low Dose* 81 MG TAB.EC PO SCH (07:44)
[2016-11-05] MEDS: metFORMIN* 500 MG TAB PO SCH ×2 (07:44→16:16)
[2016-11-05] MEDS: Indomethacin CAP* 25 MG CAP PO PRN (07:45)
[2016-11-05] MEDS: Losartan TAB* 25 MG PO SCH (07:46)
[2016-11-05] MEDS: Multivitamins/Minerals TAB PO SCH (07:46)
[2016-11-05] MEDS: Insulin LISPRO* 1 UNITS UNIT SUBCUT SCH ×4 (07:47→20:45)
[2016-11-05] MEDS: PTO:Canagliflozin (NF) 100 MG TAB PO SCH (07:49)
[2016-11-05 07:58] LABS: Hematocrit 37 % (42-52); Hemoglobin 12.2 g/dl (14.0-18.0); Mean Corpuscular HGB Conc 33 g/dl (31-36); Mean Corpuscular Hemoglobin 30 pg (27-31); Mean Corpuscular Volume 90 fL (80-94); Mean Platelet Volume 7 um3 (7.4-10.4); Red Blood Count 4.06 10^6/ul (4.0-5.4); Red Cell Distribution Width 14 % (10.5-15); White Blood Count 12.9 10^3/ul (3.5-10.8)
[2016-11-05 08:03] LABS: Add Diff/Slide Review? Slide Review Added; Comments Flag Yes
[2016-11-05 08:14] LABS: BUN/Creatinine Ratio 14.7 (8-20); Calcium 9.2 mg/dL (8.6-10.3); EGFR African American 99.4 (>60); EGFR Non-African American 77.3 (>60); Potassium 4.1 mmol/L (3.5-5.0)
--- NOTE | 2016-11-05 16:18 | PN ---
Subjective Date of Service: 11/05/16 Interval History: Patient reports improvement today. Some cough. Malaise improved. No dyspnea. Afebrile. No new complaints. Objective Active Medications: Acetaminophen (Tylenol Tab*) 650 mg PO Q4H PRN PRN Reason: FEVER/HEADACHE Aspirin (Aspirin Ec Low Dose*) 81 mg PO DAILY [facility] Last Admin: 11/05/16 07:44 Dose: 81 mg Atorvastatin Calcium (Lipitor*) 40 mg PO 2100 [facility] Last Admin: 11/04/16 21:31 Dose: 40 mg Canagliflozin (Invokana (Nf)) 100 mg PO QAM [facility] Last Admin: 11/05/16 07:49 Dose: Not Given Dextrose (D50w Syringe 50 Ml*) 12.5 gm IV PUSH .FOR FS < 60 - SS PRN PRN Reason: FS < 60 Enoxaparin Sodium (Lovenox(*)) 40 mg SUBCUT Q24H [facility] Last Admin: 11/05/16 05:02 Dose: 40 mg Piperacillin Sod/Tazobactam Sod (Zosyn 3.375 Gm In Ns Premix*) 3.375 gm in 100 mls @ 25 mls/hr IVPB Q8H [facility] Last Admin: 11/05/16 12:55 Dose: 25 mls/hr Indomethacin (Indocin Cap*) 25 mg PO TID WITH MEALS PRN PRN Reason: PAIN/INFLAMMATION Last Admin: 11/05/16 07:45 Dose: 25 mg Insulin Glargine (Lantus(*)) 60 units SUBCUT BEDTIME [facility] Last Admin: 11/04/16 21:30 Dose: 60 unit Insulin Human Lispro (Humalog*) 0 units SUBCUT ACHS [facility] PRN Reason: Protocol Last Admin: 11/05/16 11:29 Dose: 2 units Losartan Potassium (Cozaar Tab*) 100 mg PO QAM [facility] Last Admin: 11/05/16 07:46 Dose: 100 mg Metformin HCl (Glucophage*) 250 mg PO BID WITH MEALS [facility] Last Admin: 11/05/16 07:44 Dose: 250 mg Metoprolol Succinate (Toprol Xl Tab*) 25 mg PO DAILY [facility] Last Admin: 11/05/16 07:44 Dose: 25 mg Multivitamins/Minerals (Theragran/Minerals Tab*) 1 tab PO DAILY [facility] Last Admin: 11/05/16 07:46 Dose: 1 tab Vital Signs: Temp Pulse Resp BP Pulse Ox 97.9 F 75 16 111/48 94 11/05/16 15:28 11/05/16 15:28 11/05/16 15:28 11/05/16 15:28 11/05/16 15:28 Oxygen Devices in Use Now: None Appearance: Well appearing, accompanied by and daughter. Sitting upright in chair, NAD Neck: NL Appearance and Movements; NL JVP Respiratory: Symmetrical Chest Expansion and Respiratory Effort, Clear to Auscultation Cardiovascular: NL Sounds; No Murmurs; No JVD, RRR Abdominal: NL Sounds; No Tenderness; No Distention Extremities: No Edema Skin: No Rash or Ulcers Neurological: Alert and Oriented x 3 Result Diagrams: 11/05/16 07:46 11/05/16 07:46 Diagnostic Imaging: CXR - poor quality, diffuse patchy densities CT chest - worsening diffuse infiltrate with multiple nodules at least one of which is new Assess/Plan/Problems-Billing Assessment: This is a very pleasant 76 yo gentleman with IDDM, gout, HTN, HLD, BPH who was recently admitted with PNA who returns with new fevers and malaise with evidence of worsening PNA. - Patient Problems (1) Pneumonia Comment: Unknown pathogen Neg legionella, RSV, influenza, strep pneumo, cryptococcus and histoplasma Previously improved with ceftriaxone/azithro but quickly failed when he was discharged with azithro/Cefdinir and had been previously treated with oral Levaquin Now improving with Zosyn again Afebrile since admission, improved WBC Requested pulm consult, patient would likely benefit from bronchoscopy, he is not producing sputum Also requested that he be re-evaluated by infectious disease (2) Lung nodules Comment: Multiple small nodules noted, largest 9mm Repeat CT this am shows at least one new nodule more consistent with infectious or inflammatory process He has previously improved with abx, making infectious etiology more likely Requested pulm consult to consider bronchoscopy (3) BPH (benign prostatic hyperplasia) (4) Diabetes Comment: IDDM Good glycemic control cont Lantus and SS Humalog (5) HLD (hyperlipidemia) (6) HTN (hypertension) Comment: Normotensive Cont losartan and metoprolol (7) DVT prophylaxis Comment: SQ Lovenox (8) Full code status Status and Disposition: Inpatient. Pend pulm/ID consult
[2016-11-05] MEDS: Atorvastatin* 40 MG TAB PO SCH (20:44)
[2016-11-05] MEDS: Insulin GLARGINE(*) 1 UNITS UNIT SUBCUT SCH (20:45)
[2016-11-06] MEDS: Enoxaparin(*) 40 MG/0.4 ML SYR SUBCUT SCH (03:29)
[2016-11-06 05:26] LABS: Hematocrit 34 % (42-52); Hemoglobin 11.3 g/dl (14.0-18.0); Mean Corpuscular HGB Conc 34 g/dl (31-36); Mean Corpuscular Hemoglobin 30 pg (27-31); Mean Corpuscular Volume 90 fL (80-94); Mean Platelet Volume 7 um3 (7.4-10.4); Red Blood Count 3.75 10^6/ul (4.0-5.4); Red Cell Distribution Width 14 % (10.5-15); White Blood Count 9.8 10^3/ul (3.5-10.8)
[2016-11-06 05:44] LABS: EGFR African American 105.8 (>60); EGFR Non-African American 82.3 (>60); Potassium 4.3 mmol/L (3.5-5.0)
[2016-11-06] MEDS: Piperac/Tazob 3.375 gm in NS* 3.375 GM/100 ML BAG IVPB SCH ×3 (05:46→22:13)
[2016-11-06] MEDS: Insulin LISPRO* 1 UNITS UNIT SUBCUT SCH ×4 (08:45→20:52)
[2016-11-06] MEDS: PTO:Canagliflozin (NF) 100 MG TAB PO SCH (08:46)
[2016-11-06] MEDS: metFORMIN* 500 MG TAB PO SCH ×2 (08:55→17:29)
[2016-11-06] MEDS: Aspirin EC Low Dose* 81 MG TAB.EC PO SCH (08:55)
[2016-11-06] MEDS: Losartan TAB* 25 MG PO SCH (08:56)
[2016-11-06] MEDS: Metoprolol Succinate XL TAB* 25 MG PO SCH (08:57)
[2016-11-06] MEDS: Multivitamins/Minerals TAB PO SCH (08:57)
--- NOTE | 2016-11-06 16:06 | PN ---
Subjective Date of Service: 11/06/16 Interval History: Patient seen and examined at bedside. Denies fever, chills, shortness of breath , chest discomfort, N/V. Pt reports an episode of diarrhea today. Pt states that he has been able to ambulate in the halls without difficultly. Denies cough and malaise today. Tele: Sinus rhythm, rate 70's. Family History: Unchanged from Admission Social History: Unchanged from Admission Past Medical History: Unchanged from Admission Objective Active Medications: Acetaminophen (Tylenol Tab*) 650 mg PO Q4H PRN Reason: FEVER/HEADACHE Aspirin (Aspirin Ec Low Dose*) 81 mg PO DAILY [facility] Atorvastatin Calcium (Lipitor*) 40 mg PO 2100 [facility] Canagliflozin (Invokana (Nf)) 100 mg PO QAM [facility] Dextrose (D50w Syringe 50 Ml*) 12.5 gm IV PUSH .FOR FS < 60 - SS PRN Reason: FS < 60 Enoxaparin Sodium (Lovenox(*)) 40 mg SUBCUT Q24H [facility] Piperacillin Sod/Tazobactam Sod (Zosyn 3.375 Gm In Ns Premix*) 3.375 gm in 100 mls @ 25 mls/hr IVPB Q8H [facility] Indomethacin (Indocin Cap*) 25 mg PO TID WITH MEALS PRN Reason: PAIN/ INFLAMMATION Insulin Glargine (Lantus(*)) 60 units SUBCUT BEDTIME [facility] Insulin Human Lispro (Humalog*) 0 units SUBCUT ACHS [facility] Reason: Protocol Losartan Potassium (Cozaar Tab*) 100 mg PO QAM [facility] Metformin HCl (Glucophage*) 250 mg PO BID WITH MEALS [facility] Metoprolol Succinate (Toprol Xl Tab*) 25 mg PO DAILY [facility] Multivitamins/Minerals (Theragran/Minerals Tab*) 1 tab PO DAILY [facility] Vital Signs 11/05/16 11/05/16 11/05/16 19:32 20:00 23:36 Temperature 98.0 F 97.9 F Pulse Rate 71 68 Respiratory 16 16 Rate Blood Pressure 124/52 120/51 (mmHg) O2 Sat by Pulse 95 96 Oximetry 11/06/16 11/06/16 11/06/16 02:49 07:12 07:41 Temperature 98.2 F 98.0 F Pulse Rate 71 74 Respiratory 18 16 20 Rate Blood Pressure 119/41 112/58 (mmHg) O2 Sat by Pulse 95 93 Oximetry 11/06/16 11:29 Temperature 98.0 F Pulse Rate 70 Respiratory 16 Rate Blood Pressure 133/57 (mmHg) O2 Sat by Pulse 96 Oximetry Oxygen Devices in Use Now: None Appearance: NAD, laying in bed Eyes: No Scleral Icterus, PERRLA Ears/Nose/Mouth/Throat: Mucous Membranes Moist Respiratory: Symmetrical Chest Expansion and Respiratory Effort, Clear to Auscultation Cardiovascular: NL Sounds; No Murmurs; No JVD, RRR Abdominal: NL Sounds; No Tenderness; No Distention Extremities: - - Trace to 1+ edema left ankle Skin: No Rash or Ulcers Neurological: Alert and Oriented x 3, NL Muscle Strength and Tone Lines/Tubes/Other Access: Clean, Dry and Intact Peripheral IV - site benign Nutrition: Taking PO's Result Diagrams: 11/06/16 04:52 11/06/16 04:52 Diagnostic Imaging: CXR - poor quality, diffuse patchy densities CT chest - worsening diffuse infiltrate with multiple nodules at least one of which is new Assess/Plan/Problems-Billing Assessment: Mr. Rainey is a very pleasant 76 yo gentleman with IDDM, gout, HTN, HLD, BPH who was recently admitted with PNA who returns with new fevers and malaise with evidence of worsening PNA. - Patient Problems (1) Pneumonia Code(s): J18.9 - PNEUMONIA, UNSPECIFIED ORGANISM SNOMED Code(s): 277393108 Comment: - Unknown pathogen - Urine negative for legionella and strep pneumo antigens, also negative for RSV , influenza, cryptococcus and histoplasma - Previously improved with ceftriaxone/azithro but quickly failed when he was discharged with azithro/Cefdinir and had been previously treated with oral Levaquin - Now improving with Zosyn - Afebrile since admission, improved WBC - Requested pulm consult, patient would likely benefit from bronchoscopy, he is not producing sputum - Also requested that he be re-evaluated by infectious disease - Plan for bronchoscopy on Sunday - Continue Zosyn (2) Lung nodules Code(s): R91.8 - OTHER NONSPECIFIC ABNORMAL FINDING OF LUNG FIELD SNOMED Code( s): 755876571 Comment: - Multiple small nodules noted, largest 9mm - Repeat CT shows at least one new nodule more consistent with infectious or inflammatory process - He has previously improved with abx, making infectious etiology more likely - Pulm consult, input appreciated - Plan for bronchoscopy (3) Diabetes Code(s): E11.9 - TYPE 2 DIABETES MELLITUS WITHOUT COMPLICATIONS SNOMED Code(s) : 82727032 Comment: - IDDM - Good glycemic control - Continue Metformin and Invokana - Continue Lantus and SS Humalog (4) BPH (benign prostatic hyperplasia) Code(s): N40.0 - BENIGN PROSTATIC HYPERPLASIA WITHOUT LOWER URINRY TRACT SYMP SNOMED Code(s): 793322802 (5) HLD (hyperlipidemia) Code(s): E78.5 - HYPERLIPIDEMIA, UNSPECIFIED SNOMED Code(s): 67870168 Comment: - Continue atorvastatin (6) HTN (hypertension) Code(s): I10 - ESSENTIAL (PRIMARY) HYPERTENSION SNOMED Code(s): 86652601 Comment: - Normotensive - Continue losartan and metoprolol (7) DVT prophylaxis Code(s): ZSO5461 - SNOMED Code(s): 519752596 Comment: - SQ Lovenox (8) Full code status Code(s): Z78.9 - OTHER SPECIFIED HEALTH STATUS SNOMED Code(s): 145912970 Status and Disposition: Inpatient. Pending ID consult. Plan for bronchoscopy on Sunday.
--- NOTE | 2016-11-06 18:23 | CONS ---
PULMONARY CONSULTATION REPORT: DATE OF CONSULT: 11/06/16 CONSULTATION REQUESTED BY: REAL Brito REASON FOR CONSULT: Evaluation of abnormal CT chest. HISTORY OF PRESENT ILLNESS: The patient is a 76-year-old pleasant white male with history of pneumonias in the past, recently admitted [place] [facility] [place] of [place], treated with antibiotics and was discharged on Levaquin. The patient travels to [place] in winter. He returned about a month ago. The patient started feeling ill, has been feeling poorly recently. The patient was admitted and treated for pneumonia. The patient was noted to have abnormal CT chest at that time. I have personally reviewed CT chest from prior admission in comparison with current CT chest. The patient noted to have reticulonodular opacities with subpleural predominance bilaterally. The patient also noted to have emphysematous changes. Mildly enlarged mediastinal nodes were also seen. The patient reports subjective fevers. The patient was noted to be febrile with temperature of 102 in the emergency room. The patient denies significant shortness of breath. He has mild dry cough. The patient also reports weight loss of about 14 pounds in the past month and a half. The patient reported that he has been exercising while in [place]. The patient also reports decreased appetite. The patient was also noted to have elevated white count. The patient had evaluation by Infectious Disease during last admission, had nasal cultures to rule out viral infections including adenovirus and flu, which were negative. The patient also had cryptococcal and other fungal antigens tested that were negative. He had negative strep and legionella antigen. His blood cultures did not reveal any bacterial source. The patient was seen and examined by me at bedside this morning. The patient reported slight improvement in symptoms. The patient reported 2 episodes of night sweats over the past week or two. The patient denied chronic cough or prolonged illness. The patient has a history of renal stones and diabetes. The patient also has prostate issues. The patient has occasional GERD symptoms; however, denies significant GERD issues. 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 He is a former smoker, quit smoking 35 years ago. He denies sick contacts. His did not have similar symptoms. The patient has history of pneumonia in the past. He was treated 3 times at [facility] in 2009, 2007, and 1999 for pneumonias. He was also treated in 2008 to 2009 in [place] for pneumonias. His blood sugars have also been fluctuant recently. History of prostate cancer in the family. PAST MEDICAL HISTORY: 1. Gout. 2. BPH. 3. Type 2 diabetes. 4. Hypertension. 5. Hyperlipidemia. PAST SURGICAL HISTORY: 1. Cataract extraction. 2. Right elbow surgery. 3. Inguinal hernia repair. MEDICATIONS: 1. Aspirin. 2. Atorvastatin. 3. Azithromycin. 4. Invokana. 5. Cefdinir. 6. Indomethacin. 7. Insulin. 8. Irbesartan. 9. Metformin. 10. Metoprolol. 11. Multivitamin. ALLERGIES: ADHESIVE TAPE. FAMILY HISTORY: Mother of [place]. Father of prostate cancer. 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 He quit smoking tobacco 35 years ago. No alcohol or drug abuse. REVIEW OF SYSTEMS: Denies anorexia, has decreased appetite. No hemoptysis. Denied abdominal pain, nausea, or vomiting. Had episodes of diarrhea recently, which he attributes to metformin and has happened in the past. Remainder of 4- point system review is negative. PHYSICAL EXAM: General: The patient is a well built male, in bed, in no apparent distance. Vital Signs: Temperature 98.2, heart rate 71 beats per minute, respiratory rate 16 per minute, O2 sat 95% on room air, blood pressure 119/41. HEENT: Pupils are equal and reactive to light, mucous membranes are moist. Oropharynx without any lesions. Sclerae anicteric. Neck: Supple. No JVD. Lymphatic: No palpable cervical or supraclavicular adenopathy. Cardiovascular: S1 and S2 present, regular. No murmurs. Abdomen: Soft, nontender, nondistended. Bowel sounds present. Extremities: Normal range of motion. No edema. Neurologic: No focal deficits. DIAGNOSTIC STUDIES/LAB DATA: WBC count was elevated at 17.1 on admission, 9.8 from yesterday's labs. Hemoglobin slightly low at 11.3. No eosinophil on peripheral blood count. Sodium 139, potassium 4.3, chloride 102, bicarb 25, BUN 18, creatinine 0.90. Troponin is slightly elevated with no EKG changes, CRP 66, which is elevated. Lactic acid within normal limits. Blood cultures negative to date. Viral antigens for RSV and influenza negative. Cryptococcus and histoplasma antigens are negative. CT scan of the chest as described above in HPI. IMPRESSION AND RECOMMENDATION: 76-year-old male with history of recurrent pneumonias in the past, treated with antibiotics, recent admission with fever, weight loss, fatigue, treated for pneumonia, readmitted with hypotension, recurrent fevers, malaise of unclear etiologies. CT chest suggestive of progression of reticulonodular opacities, suggestive of possible infectious or inflammatory etiology. 1. Sarcoidosis in the differential. 2. Less likely to have connective tissue disease develop at this age. 3. Viral or fungal pneumonia still a possibility. 4. Lymphangitic carcinomatosis also in the differential though less likely; however, I am concerned given his recent weight loss and evidence of thickened esophagus on the CT chest. 5. Atypical mycobacterial infection also in the differential. 6. Will schedule the patient for bronchoscopy to perform on Sunday. 7. The patient will be NPO after midnight. 8. Continue with current antibiotics. Thank you for allowing me to participate in the care of your patient. Will follow up with you. [id number]/[facility] #: [id number] RICKIE
[2016-11-06] MEDS: Atorvastatin* 40 MG TAB PO SCH (20:51)
[2016-11-06] MEDS: Insulin GLARGINE(*) 1 UNITS UNIT SUBCUT SCH (20:51)
[2016-11-07] MEDS: Piperac/Tazob 3.375 gm in NS* 3.375 GM/100 ML BAG IVPB SCH ×3 (05:40→21:53)
[2016-11-07] MEDS: Enoxaparin(*) 40 MG/0.4 ML SYR SUBCUT SCH (05:41)
[2016-11-07] MEDS: Insulin LISPRO* 1 UNITS UNIT SUBCUT SCH ×4 (07:57→20:36)
[2016-11-07] MEDS: metFORMIN* 500 MG TAB PO SCH ×2 (08:49→18:18)
[2016-11-07] MEDS: Losartan TAB* 25 MG PO SCH (08:50)
[2016-11-07] MEDS: Aspirin EC Low Dose* 81 MG TAB.EC PO SCH (08:50)
[2016-11-07] MEDS: Multivitamins/Minerals TAB PO SCH (08:50)
[2016-11-07] MEDS: Metoprolol Succinate XL TAB* 25 MG PO SCH (08:50)
--- NOTE | 2016-11-07 09:21 | PN ---
Subjective Date of Service: 11/07/16 Interval History: Patient seen and examined at bedside. Pt states that he continues to feel better. Denies fever, chills, shortness of breath, chest discomfort, cough, malaise, N/V/D. Family History: Unchanged from Admission Social History: Unchanged from Admission Past Medical History: Unchanged from Admission Objective Active Medications: Acetaminophen (Tylenol Tab*) 650 mg PO Q4H PRN Reason: FEVER/HEADACHE Aspirin (Aspirin Ec Low Dose*) 81 mg PO DAILY [facility] Atorvastatin Calcium (Lipitor*) 40 mg PO 2100 [facility] Canagliflozin (Invokana (Nf)) 100 mg PO QAM [facility] Dextrose (D50w Syringe 50 Ml*) 12.5 gm IV PUSH .FOR FS < 60 - SS PRN Reason: FS < 60 Enoxaparin Sodium (Lovenox(*)) 40 mg SUBCUT Q24H [facility] Piperacillin Sod/Tazobactam Sod (Zosyn 3.375 Gm In Ns Premix*) 3.375 gm in 100 mls @ 25 mls/hr IVPB Q8H [facility] Indomethacin (Indocin Cap*) 25 mg PO TID WITH MEALS PRN Reason: PAIN/ INFLAMMATION Insulin Glargine (Lantus(*)) 60 units SUBCUT BEDTIME [facility] Insulin Human Lispro (Humalog*) 0 units SUBCUT ACHS [facility] Reason: Protocol Losartan Potassium (Cozaar Tab*) 100 mg PO QAM [facility] Metformin HCl (Glucophage*) 250 mg PO BID WITH MEALS [facility] Metoprolol Succinate (Toprol Xl Tab*) 25 mg PO DAILY [facility] Multivitamins/Minerals (Theragran/Minerals Tab*) 1 tab PO DAILY [facility] Vital Signs 11/06/16 11/06/16 11/06/16 11:29 15:50 18:25 Temperature 98.0 F 98.1 F 98.1 F Pulse Rate 70 84 88 Respiratory 16 16 16 Rate Blood Pressure 133/57 137/52 144/60 (mmHg) O2 Sat by Pulse 96 97 95 Oximetry 11/06/16 11/06/16 11/06/16 19:08 19:36 23:31 Temperature 98.1 F 99.8 F Pulse Rate 88 77 Respiratory 16 16 16 Rate Blood Pressure 144/60 118/41 (mmHg) O2 Sat by Pulse 95 92 Oximetry 11/07/16 03:30 Temperature 98.7 F Pulse Rate 79 Respiratory 16 Rate Blood Pressure 119/43 (mmHg) O2 Sat by Pulse 94 Oximetry Oxygen Devices in Use Now: None Appearance: NAD, laying in bed Eyes: No Scleral Icterus, PERRLA Ears/Nose/Mouth/Throat: Mucous Membranes Moist Respiratory: Symmetrical Chest Expansion and Respiratory Effort, Clear to Auscultation Cardiovascular: NL Sounds; No Murmurs; No JVD, RRR Abdominal: NL Sounds; No Tenderness; No Distention Extremities: No Edema Skin: No Rash or Ulcers Neurological: Alert and Oriented x 3, NL Muscle Strength and Tone Nutrition: Taking PO's Result Diagrams: 11/06/16 04:52 11/06/16 04:52 Diagnostic Imaging: CXR - poor quality, diffuse patchy densities CT chest - worsening diffuse infiltrate with multiple nodules at least one of which is new Assess/Plan/Problems-Billing Assessment: Mr. Rainey is a very pleasant 76 yo gentleman with IDDM, gout, HTN, HLD, BPH who was recently admitted with PNA who returns with new fevers and malaise with evidence of worsening PNA. - Patient Problems (1) Pneumonia Code(s): J18.9 - PNEUMONIA, UNSPECIFIED ORGANISM SNOMED Code(s): 256243689 Comment: - Unknown pathogen - Urine negative for legionella and strep pneumo antigens, also negative for RSV , influenza, cryptococcus and histoplasma - Previously improved with ceftriaxone/azithro but quickly failed when he was discharged with azithro/Cefdinir and had been previously treated with oral Levaquin - Now improving with Zosyn - Afebrile since admission, improved WBC - Requested pulm consult, patient would likely benefit from bronchoscopy, he is not producing sputum - Also requested that he be re-evaluated by infectious disease - Plan for bronchoscopy on Sunday - Continue Zosyn (2) Lung nodules Code(s): R91.8 - OTHER NONSPECIFIC ABNORMAL FINDING OF LUNG FIELD SNOMED Code( s): 589750216 Comment: - Multiple small nodules noted, largest 9mm - Repeat CT shows at least one new nodule more consistent with infectious or inflammatory process - He has previously improved with abx, making infectious etiology more likely - Pulm consult, input appreciated - Plan for bronchoscopy (3) Diabetes Code(s): E11.9 - TYPE 2 DIABETES MELLITUS WITHOUT COMPLICATIONS SNOMED Code(s) : 33237043 Comment: - IDDM - Good glycemic control - Continue Metformin and Invokana - Continue Lantus and SS Humalog (4) BPH (benign prostatic hyperplasia) Code(s): N40.0 - BENIGN PROSTATIC HYPERPLASIA WITHOUT LOWER URINRY TRACT SYMP SNOMED Code(s): 168923916 (5) HLD (hyperlipidemia) Code(s): E78.5 - HYPERLIPIDEMIA, UNSPECIFIED SNOMED Code(s): 95557646 Comment: - Continue atorvastatin (6) HTN (hypertension) Code(s): I10 - ESSENTIAL (PRIMARY) HYPERTENSION SNOMED Code(s): 42954898 Comment: - Normotensive - Continue losartan and metoprolol (7) DVT prophylaxis Code(s): PCT5377 - SNOMED Code(s): 343929050 Comment: - SQ Lovenox (8) Full code status Code(s): Z78.9 - OTHER SPECIFIED HEALTH STATUS SNOMED Code(s): 351805118 Status and Disposition: Inpatient. Pending ID consult. Plan for bronchoscopy on Sunday.
[2016-11-07] MEDS: PTO:Canagliflozin (NF) 100 MG TAB PO SCH (10:21)
--- NOTE | 2016-11-07 17:57 | PN ---
Progress Note - Progress Note Note: Pulm consult f/u note 11/07/16. Pt seen and examined at bedside. Pt reports improvement in sx Active Medications Generic Name Dose Route Start Last Admin Trade Name Frejoleen PRN Reason Stop Dose Admin Acetaminophen 650 mg 11/04/16 02:58 Tylenol Tab* PO Q4H PRN FEVER/HEADACHE Aspirin 81 mg 11/04/16 09:00 11/07/16 08:50 Aspirin Ec Low Dose* PO 81 mg DAILY [facility] Administration Atorvastatin Calcium 40 mg 11/04/16 21:00 11/06/16 20:51 Lipitor* PO 40 mg 2100 [facility]OS Administration Canagliflozin 100 mg 11/04/16 09:00 11/07/16 10:21 Invokana (Nf) PO 100 mg QAM [facility] Administration Dextrose 12.5 gm 11/04/16 03:16 D50w Syringe 50 Ml* IV PUSH .FOR FS < 60 - SS PRN FS < 60 Enoxaparin Sodium 40 mg 11/04/16 03:00 11/07/16 05:41 Lovenox(*) SUBCUT 40 mg Q24H [facility] Administration Piperacillin Sod/Tazobactam Sod 3.375 gm in 100 mls @ 25 mls/hr 11/04/16 06: 00 11/07/16 15:04 Zosyn 3.375 Gm In Ns Premix* IVPB 25 mls/hr Q8H [facility] Administration Indomethacin 25 mg 11/04/16 03:15 11/05/16 07:45 Indocin Cap* PO 25 mg TID WITH MEALS PRN Administration PAIN/INFLAMMATION Insulin Glargine 60 units 11/04/16 21:00 11/06/16 20:51 Lantus(*) SUBCUT 60 unit BEDTIME [facility] Administration Insulin Human Lispro 0 units 11/04/16 07:30 11/07/16 12:45 Humalog* SUBCUT 2 units ACHS [facility] Administration Protocol Losartan Potassium 100 mg 11/04/16 09:00 11/07/16 08:50 Cozaar Tab* PO 100 mg QAM [facility] Administration Metformin HCl 250 mg 11/04/16 08:00 11/07/16 08:49 Glucophage* PO 250 mg BID WITH MEALS [facility] Administration Metoprolol Succinate 25 mg 11/04/16 09:00 11/07/16 08:50 Toprol Xl Tab* PO 25 mg DAILY [facility] Administration Multivitamins/Minerals 1 tab 11/04/16 09:00 11/07/16 08:50 Theragran/Minerals Tab* PO 1 tab DAILY [facility] Administration Vital Signs Temp Pulse Resp BP Pulse Ox 98.7 F 77 16 135/63 96 11/07/16 16:04 11/07/16 16:04 11/07/16 11:45 11/07/16 16:04 11/07/16 16:04 AGen: Pt in NAD, eating dinner HEENT: No Scleral Icterus, PERRLA, Mucous Membranes Moist Respiratory: Symmetrical Chest Expansion and Respiratory Effort, Clear to Auscultation Cardiovascular: NL Sounds; No Murmurs; No JVD, RRR Abdominal: NL Sounds; No Tenderness; No Distention Extremities: No Edema Skin: No Rash or Ulcers Neurological: Alert and Oriented x 3, NL Muscle Strength and Tone Laboratory Results - last 24 hr 11/06/16 11/07/16 11/07/16 20:34 07:55 11:43 POC Glucose (mg/dL) 171 H 104 194 H 11/07/16 16:41 POC Glucose (mg/dL) 158 H CXR - personally reviewed by me, diffuse patchy densities CT chest - personally reviewed by me, worsening diffuse infiltrate with multiple nodules I/R: Pt is pleasant 76 yo gentleman with IDDM, gout, HTN, HLD, BPH who was recently admitted with PNA who returns with new fevers and malaise with evidence of multiple pulmonary nodules- Infectious versus inflammatory versus lymphangetic carcinomatosis Pt on abx, leukocytosis improving, afebrile Scheduled for bronchoscopy and TBBx under fluoroscopic guidance tomorrow Procedure was discussed in detail Associated risks and benefits were discussed Pt agreeable to procedure NPO after midnight
[2016-11-07] MEDS: Atorvastatin* 40 MG TAB PO SCH (20:34)
[2016-11-07] MEDS: Insulin GLARGINE(*) 1 UNITS UNIT SUBCUT SCH (20:35)
[2016-11-08] MEDS: Enoxaparin(*) 40 MG/0.4 ML SYR SUBCUT SCH (05:38)
[2016-11-08] MEDS: Piperac/Tazob 3.375 gm in NS* 3.375 GM/100 ML BAG IVPB SCH ×3 (05:39→21:48)
[2016-11-08] MEDS: Insulin LISPRO* 1 UNITS UNIT SUBCUT SCH ×4 (07:49→21:44)
[2016-11-08] MEDS: PTO:Canagliflozin (NF) 100 MG TAB PO SCH (08:15)
[2016-11-08] MEDS: metFORMIN* 500 MG TAB PO SCH ×2 (08:15→17:26)
[2016-11-08] MEDS: Multivitamins/Minerals TAB PO SCH (08:15)
[2016-11-08] MEDS: Losartan TAB* 25 MG PO SCH (08:36)
[2016-11-08] MEDS: Aspirin EC Low Dose* 81 MG TAB.EC PO SCH (08:37)
[2016-11-08] MEDS: Metoprolol Succinate XL TAB* 25 MG PO SCH (08:37)
--- NOTE | 2016-11-08 10:13 | PN ---
Subjective Date of Service: 11/08/16 Interval History: Patient seen and examined at bedside. Pt states that he is feeling better today. Denies fever, chills, increased shortness of breath (SOB is at baseline) , cough, chest discomfort, or N/V/D. Family History: Unchanged from Admission Social History: Unchanged from Admission Past Medical History: Unchanged from Admission Objective Active Medications: Acetaminophen (Tylenol Tab*) 650 mg PO Q4H PRN Reason: FEVER/HEADACHE Aspirin (Aspirin Ec Low Dose*) 81 mg PO DAILY [facility] Atorvastatin Calcium (Lipitor*) 40 mg PO 2100 [facility] Canagliflozin (Invokana (Nf)) 100 mg PO QAM [facility] Dextrose (D50w Syringe 50 Ml*) 12.5 gm IV PUSH .FOR FS < 60 - SS PRN Reason: FS < 60 Enoxaparin Sodium (Lovenox(*)) 40 mg SUBCUT DAILY@0600 [facility] Heparin Sodium (Porcine) (Heparin Flush Picc/Ml/Cvc(*)) 1 ml FLUSH 0600,1800 [facility] Reason: Protocol Piperacillin Sod/Tazobactam Sod (Zosyn 3.375 Gm In Ns Premix*) 3.375 gm in 100 mls @ 25 mls/hr IVPB Q8H [facility] Indomethacin (Indocin Cap*) 25 mg PO TID WITH MEALS PRN Reason: PAIN/ INFLAMMATION Insulin Glargine (Lantus(*)) 60 units SUBCUT BEDTIME [facility] Insulin Human Lispro (Humalog*) 0 units SUBCUT ACHS [facility] Reason: Protocol Losartan Potassium (Cozaar Tab*) 100 mg PO QAM [facility] Metformin HCl (Glucophage*) 250 mg PO BID WITH MEALS [facility] Metoprolol Succinate (Toprol Xl Tab*) 25 mg PO DAILY [facility] Multivitamins/Minerals (Theragran/Minerals Tab*) 1 tab PO DAILY [facility] Vital Signs 11/07/16 11/07/16 11/07/16 11:45 16:04 19:54 Temperature 97.7 F 98.7 F 98.4 F Pulse Rate 76 77 80 Respiratory 16 Rate Blood Pressure 130/54 135/63 136/62 (mmHg) O2 Sat by Pulse 94 96 93 Oximetry 11/07/16 11/07/16 11/08/16 20:00 23:05 07:37 Temperature 98.5 F 98.3 F Pulse Rate 74 73 Respiratory 18 16 16 Rate Blood Pressure 137/55 140/63 (mmHg) O2 Sat by Pulse 92 95 Oximetry 11/08/16 08:00 Temperature Pulse Rate Respiratory 16 Rate Blood Pressure (mmHg) O2 Sat by Pulse Oximetry Oxygen Devices in Use Now: None Appearance: NAD, sitting up in a chair Eyes: No Scleral Icterus, PERRLA Ears/Nose/Mouth/Throat: Mucous Membranes Moist Respiratory: Symmetrical Chest Expansion and Respiratory Effort, Clear to Auscultation Cardiovascular: NL Sounds; No Murmurs; No JVD, RRR Abdominal: NL Sounds; No Tenderness; No Distention Extremities: - - Trace bilateral LE edema, Trace to +1 edema to left ankle Neurological: Alert and Oriented x 3, NL Muscle Strength and Tone Lines/Tubes/Other Access: Clean, Dry and Intact Other Access - Midline, site benign Nutrition: Taking PO's Result Diagrams: 11/06/16 04:52 11/06/16 04:52 Diagnostic Imaging: CXR - poor quality, diffuse patchy densities CT chest - worsening diffuse infiltrate with multiple nodules at least one of which is new Assess/Plan/Problems-Billing Assessment: Mr. Rainey is a very pleasant 76 yo gentleman with IDDM, gout, HTN, HLD, BPH who was recently admitted with PNA who returns with new fevers and malaise with evidence of worsening PNA. - Patient Problems (1) Pneumonia Code(s): J18.9 - PNEUMONIA, UNSPECIFIED ORGANISM SNOMED Code(s): 206695677 Comment: - Unknown pathogen - Urine negative for legionella and strep pneumo antigens, also negative for RSV , influenza, cryptococcus and histoplasma - Previously improved with ceftriaxone/azithro but quickly failed when he was discharged with azithro/Cefdinir and had been previously treated with oral Levaquin - Now improving with Zosyn - Afebrile since admission, resolved elevated WBC - Requested pulm consult, patient would likely benefit from bronchoscopy, he is not producing sputum - Also requested that he be re-evaluated by infectious disease - Plan for bronchoscopy today - Continue Zosyn (2) Lung nodules Code(s): R91.8 - OTHER NONSPECIFIC ABNORMAL FINDING OF LUNG FIELD SNOMED Code( s): 747210090 Comment: - Multiple small nodules noted, largest 9mm - Repeat CT shows at least one new nodule more consistent with infectious or inflammatory process - He has previously improved with abx, making infectious etiology more likely - Pulm consult, input appreciated - Plan for bronchoscopy (3) Diabetes Code(s): E11.9 - TYPE 2 DIABETES MELLITUS WITHOUT COMPLICATIONS SNOMED Code(s) : 73788184 Comment: - IDDM - Good glycemic control - Continue Metformin and Invokana - Continue Lantus and SS Humalog (4) BPH (benign prostatic hyperplasia) Code(s): N40.0 - BENIGN PROSTATIC HYPERPLASIA WITHOUT LOWER URINRY TRACT SYMP SNOMED Code(s): 975068028 (5) HLD (hyperlipidemia) Code(s): E78.5 - HYPERLIPIDEMIA, UNSPECIFIED SNOMED Code(s): 51617004 Comment: - Continue atorvastatin (6) HTN (hypertension) Code(s): I10 - ESSENTIAL (PRIMARY) HYPERTENSION SNOMED Code(s): 12680708 Comment: - Normotensive - Continue losartan and metoprolol (7) DVT prophylaxis Code(s): HMF4964 - SNOMED Code(s): 676307706 Comment: - SQ Lovenox (8) Full code status Code(s): Z78.9 - OTHER SPECIFIED HEALTH STATUS SNOMED Code(s): 165021438 Status and Disposition: Inpatient. Pending ID consult. Plan for bronchoscopy today.
[2016-11-08] MEDS ORDERED: fentaNYL* 50 MCG/ML 2 ML VIAL (100 MCG VIAL) ONE (13:27)
[2016-11-08] MEDS ORDERED: Propofol* 10 MG/ML 20 ML BTL IV PUSH ONE (13:27)
[2016-11-08] MEDS ORDERED: Midazolam* 1 MG/ML 2 ML VIAL (2 MG) ONE (13:27)
[2016-11-08] MEDS ORDERED: Succinylcholine* 20 MG/ML 10 ML VIAL ONE (13:39)
[2016-11-08] MEDS ORDERED: fentaNYL* 50 MCG/ML 2 ML VIAL (100 MCG VIAL) IV PRN (14:06)
[2016-11-08] MEDS ORDERED: Ondansetron INJ* 2 MG/ML VIAL IV PRN (14:06)
--- NOTE | 2016-11-08 14:07 | PN ---
Progress Note - Progress Note Note: Pulm consult f/u note 11/08/16. Pt seen and examined at bedside. Pt reports improvement in sx. Pt was NPO for bronchoscopy Active Medications Generic Name Dose Route Start Last Admin Trade Name Freq PRN Reason Stop Dose Admin Acetaminophen 650 mg 11/04/16 02:58 Tylenol Tab* PO Q4H PRN FEVER/HEADACHE Aspirin 81 mg 11/04/16 09:00 11/08/16 08:37 Aspirin Ec Low Dose* PO 81 mg DAILY [facility] Administration Atorvastatin Calcium 40 mg 11/04/16 21:00 11/07/16 20:34 Lipitor* PO 40 mg 2100 [facility] Administration Canagliflozin 100 mg 11/04/16 09:00 11/08/16 08:15 Invokana (Nf) PO Not Given QAM [facility] Dextrose 12.5 gm 11/04/16 03:16 D50w Syringe 50 Ml* IV PUSH .FOR FS < 60 - SS PRN FS < 60 Enoxaparin Sodium 40 mg 11/08/16 06:00 11/08/16 05:38 Lovenox(*) SUBCUT 40 mg DAILY@0600 [facility] Administration Heparin Sodium (Porcine) 1 ml 11/08/16 06:00 11/08/16 10:49 Heparin Flush Picc/Ml/Cvc(*) FLUSH 1 ml 0600,1800 [facility] Administration Protocol Piperacillin Sod/Tazobactam Sod 3.375 gm in 100 mls @ 25 mls/hr 11/04/16 06: 00 11/08/16 05:39 Zosyn 3.375 Gm In Ns Premix* IVPB 25 mls/hr Q8H [facility] Administration Indomethacin 25 mg 11/04/16 03:15 11/05/16 07:45 Indocin Cap* PO 25 mg TID WITH MEALS PRN Administration PAIN/INFLAMMATION Insulin Glargine 60 units 11/04/16 21:00 11/07/16 20:35 Lantus(*) SUBCUT 60 unit BEDTIME [facility] Administration Insulin Human Lispro 0 units 11/04/16 07:30 11/08/16 12:13 Humalog* SUBCUT Not Given ACHS [facility] Protocol Losartan Potassium 100 mg 11/04/16 09:00 11/08/16 08:36 Cozaar Tab* PO 100 mg QAM [facility] Administration Metformin HCl 250 mg 11/04/16 08:00 11/08/16 08:15 Glucophage* PO Not Given BID WITH MEALS [facility] Metoprolol Succinate 25 mg 11/04/16 09:00 11/08/16 08:37 Toprol Xl Tab* PO 25 mg DAILY [facility] Administration Multivitamins/Minerals 1 tab 11/04/16 09:00 11/08/16 08:15 Theragran/Minerals Tab* PO Not Given DAILY [facility] Vital Signs Temp Pulse Resp BP Pulse Ox 97.4 F 82 16 122/54 96 11/08/16 11:11 11/08/16 11:11 11/08/16 11:11 11/08/16 11:11 11/08/16 11:11 AGen: Pt in NAD, eating dinner HEENT: No Scleral Icterus, PERRLA, Mucous Membranes Moist Respiratory: Symmetrical Chest Expansion and Respiratory Effort, Clear to Auscultation Cardiovascular: NL Sounds; No Murmurs; No JVD, RRR Abdominal: NL Sounds; No Tenderness; No Distention Extremities: No Edema Skin: No Rash or Ulcers Neurological: Alert and Oriented x 3, NL Muscle Strength and Tone Laboratory Results - last 24 hr 11/07/16 11/07/16 11/08/16 16:41 20:21 07:48 POC Glucose (mg/dL) 158 H 248 H 123 H Laboratory Results - last 24 hr 11/06/16 11/07/16 11/07/16 20:34 07:55 11:43 POC Glucose (mg/dL) 171 H 104 194 H 11/07/16 16:41 POC Glucose (mg/dL) 158 H CXR - personally reviewed by me, diffuse patchy densities CT chest - personally reviewed by me, worsening diffuse infiltrate with multiple nodules I/R: Pt is pleasant 76 yo gentleman with IDDM, gout, HTN, HLD, BPH who was recently admitted with PNA who returns with new fevers and malaise with evidence of multiple pulmonary nodules- Infectious versus inflammatory versus lymphangetic carcinomatosis Pt on abx, leukocytosis improving, afebrile Had bronchoscopy and TBBx under fluoroscopic guidance today Pt tolerated procedure well. TBBx obtained from RLL under fluoro guidance BAL obtained from RML and sent for micro and cytological exam Will await biopsy and culture results
--- NOTE | 2016-11-08 15:19 | RAD ---
INDICATION: Bronchoscopy COMPARISONS: None relevant TECHNIQUE: Fluoroscopy was provided for bronchoscopy. Total fluoroscopy time is: 69.2 seconds FINDINGS: Spot images of the straight a bronchoscope overlying the right chest IMPRESSION: FLUOROSCOPY WAS PROVIDED FOR BRONCHOSCOPY CPT II Codes: 6045F
[2016-11-08] MEDS: Atorvastatin* 40 MG TAB PO SCH (21:30)
[2016-11-08] MEDS: Insulin GLARGINE(*) 1 UNITS UNIT SUBCUT SCH (21:43)
--- NOTE | 2016-11-08 22:17 | PRO ---
BRONCHOSCOPY REPORT: DATE OF PROCEDURE: 11/08/16 PROCEDURE PERFORMED: Bronchoscopy with transbronchial biopsy from right lower lobe and bronchoalveolar lavage from right middle lobe. PREPROCEDURAL DIAGNOSES: Pneumonia, progressive lung infiltrates. POSTPROCEDURAL DIAGNOSIS: Lung infiltrates. ANESTHESIA: General anesthesia, the patient intubated with size 8.0 endotracheal tube. ANESTHESIOLOGIST: Dr. Garzon, refer to anesthesiologist note for further details. DESCRIPTION OF PROCEDURE: Informed consent was obtained from the patient prior to the procedure after all the risks and benefits were thoroughly explained. The patient has been having recurrent admissions recently with pneumonia with CT chest showing progression of patchy airspace opacities and nodules. Bronchoscopy was scheduled to evaluate for infectious versus inflammatory causes. Appropriate time- out was agreed on by attending staff prior to the procedure. The patient had size 8.0 endotracheal tube placed. The patient had Venodynes and Leni Hugger placed. A flexible Olympus bronchoscope was inserted through ET tube. ET tube positioning was confirmed to be 2 cm above the level of demetrius. Bronchoscope was then advanced into the right bronchial tree, which was then inspected. No endobronchial lesions were noted. No evidence of secretions. Bronchoscope was then advanced to the left bronchial tree, which was inspected. No endobronchial lesions and no secretions were noted. The patient had mild bleeding with suction as he is on aspirin. The patient's bronchoscope was then advanced into the right middle lobe area and bronchoalveolar lavage was obtained. 10 cc was aspirated and was sent to the lab for microbiological and cytological examination. Bronchoscope was then advanced into the right lower lobe, which was inspected and transbronchial biopsies were obtained from posterior segment of right lower lobe under fluoro guidance. Six passes were made. No bleeding occurred. The patient tolerated the procedure well. The patient was extubated and was seen in the recovery area in optimal condition. [id number]/CPS #: [id number] [facility]
[2016-11-09] MEDS: Piperac/Tazob 3.375 gm in NS* 3.375 GM/100 ML BAG IVPB SCH ×3 (05:39→22:09)
[2016-11-09] MEDS: Enoxaparin(*) 40 MG/0.4 ML SYR SUBCUT SCH (05:41)
[2016-11-09] MEDS: Insulin LISPRO* 1 UNITS UNIT SUBCUT SCH ×4 (08:58→20:56)
[2016-11-09] MEDS: Losartan TAB* 25 MG PO SCH (09:00)
[2016-11-09] MEDS: Aspirin EC Low Dose* 81 MG TAB.EC PO SCH (09:00)
[2016-11-09] MEDS: Multivitamins/Minerals TAB PO SCH (09:00)
[2016-11-09] MEDS: Metoprolol Succinate XL TAB* 25 MG PO SCH (09:00)
[2016-11-09] MEDS: metFORMIN* 500 MG TAB PO SCH ×2 (09:01→17:52)
[2016-11-09] MEDS: PTO:Canagliflozin (NF) 100 MG TAB PO SCH (09:02)
--- NOTE | 2016-11-09 10:50 | PN ---
Progress Note - Progress Note Note: Pulm consult f/u note 11/09/16. Pt seen and examined at bedside. Pt reports improvement in sx. Had cough and sore throat last night, feels much better this am Active Medications Generic Name Dose Route Start Last Admin Trade Name Freq PRN Reason Stop Dose Admin Acetaminophen 650 mg 11/04/16 02:58 Tylenol Tab* PO Q4H PRN FEVER/HEADACHE Aspirin 81 mg 11/04/16 09:00 11/09/16 09:00 Aspirin Ec Low Dose* PO 81 mg DAILY [facility] Administration Atorvastatin Calcium 40 mg 11/04/16 21:00 11/08/16 21:30 Lipitor* PO 40 mg 2100 [facility] Administration Canagliflozin 100 mg 11/04/16 09:00 11/09/16 09:02 Invokana (Nf) PO 100 mg QAM [facility] Administration Dextrose 12.5 gm 11/04/16 03:16 D50w Syringe 50 Ml* IV PUSH .FOR FS < 60 - SS PRN FS < 60 Enoxaparin Sodium 40 mg 11/08/16 06:00 11/09/16 05:41 Lovenox(*) SUBCUT 40 mg DAILY@0600 [facility] Administration Heparin Sodium (Porcine) 1 ml 11/08/16 06:00 11/09/16 05:36 Heparin Flush Picc/Ml/Cvc(*) FLUSH Not Given 0600,1800 [facility] Protocol Piperacillin Sod/Tazobactam Sod 3.375 gm in 100 mls @ 25 mls/hr 11/04/16 06: 00 11/09/16 05:39 Zosyn 3.375 Gm In Ns Premix* IVPB 25 mls/hr Q8H [facility] Administration Indomethacin 25 mg 11/04/16 03:15 11/05/16 07:45 Indocin Cap* PO 25 mg TID WITH MEALS PRN Administration PAIN/INFLAMMATION Insulin Glargine 60 units 11/04/16 21:00 11/08/16 21:43 Lantus(*) SUBCUT 60 unit BEDTIME [facility] Administration Insulin Human Lispro 0 units 11/04/16 07:30 11/09/16 08:58 Humalog* SUBCUT Not Given ACHS [facility] Protocol Losartan Potassium 100 mg 11/04/16 09:00 11/09/16 09:00 Cozaar Tab* PO 100 mg QAM [facility] Administration Metformin HCl 250 mg 11/04/16 08:00 11/09/16 09:01 Glucophage* PO 250 mg BID WITH MEALS [facility] Administration Metoprolol Succinate 25 mg 11/04/16 09:00 11/09/16 09:00 Toprol Xl Tab* PO 25 mg DAILY [facility] Administration Multivitamins/Minerals 1 tab 11/04/16 09:00 11/09/16 09:00 Theragran/Minerals Tab* PO 1 tab DAILY [facility] Administration Vital Signs Temp Pulse Resp BP Pulse Ox 98.5 F 84 16 137/58 94 11/09/16 07:36 11/09/16 07:36 11/09/16 04:22 11/09/16 07:36 11/09/16 07:36 AGen: Pt in NAD, sitting up in chair HEENT: No Scleral Icterus, PERRLA Respiratory: Symmetrical Chest Expansion and Respiratory Effort, Clear to Auscultation Cardiovascular: NL Sounds; No Murmurs; No JVD, RRR Abdominal: NL Sounds, No Tenderness; No Distention Extremities: No Edema Skin: No Rash or Ulcers Neurological: Alert and Oriented x 3, NL Muscle Strength and Tone Laboratory Results - last 24 hr 11/08/16 11/08/16 11/08/16 11:52 16:38 21:32 POC Glucose (mg/dL) 115 H 202 H 194 H 11/09/16 07:22 POC Glucose (mg/dL) 115 H Laboratory Results - last 24 hr 11/07/16 11/07/16 11/08/16 16:41 20:21 07:48 POC Glucose (mg/dL) 158 H 248 H 123 H Laboratory Results - last 24 hr 11/06/16 11/07/16 11/07/16 20:34 07:55 11:43 POC Glucose (mg/dL) 171 H 104 194 H 11/07/16 16:41 POC Glucose (mg/dL) 158 H CXR - personally reviewed by me, diffuse patchy densities CT chest - personally reviewed by me, worsening diffuse infiltrate with multiple nodules I/R: Pt is pleasant 76 yo gentleman with IDDM, gout, HTN, HLD, BPH who was recently admitted with PNA who returns with new fevers and malaise with evidence of multiple pulmonary nodules- Infectious versus 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 TBBx obtained from RLL under fluoro guidance BAL obtained from RML and sent for micro and cytological exam, results pending No complications after procedure Abx as per ID Will await biopsy and culture results Pt has f/u appt in office next Sunday at noon
--- NOTE | 2016-11-09 11:37 | PN ---
Progress Note - Progress Note SOAP: Subjective: DOS: 11/09/16 CC: leukocytosis HPI: 76 yo man recently treated for CAP, improved while here then fever and malaise returned after 24 hrs at home on PO abx. Leukocytosis returned as well , all resolved again on zosyn. No cough, fever, chills, or sweats; energy improving. Tolerated bronchoscopy well. Objective: [] Vital Signs Temp 36.9 C 11/09/16 07:36 Pulse 84 11/09/16 07:36 Resp 17 11/09/16 08:00 BP 137/58 11/09/16 07:36 Pulse Ox 94 11/09/16 08:00 Intake & Output 11/08/16 11/09/16 11/09/16 18:59 06:59 18:59 Intake Total 1382 120 Balance 1382 120 Intake: IV Fluids 902 ABX - ZOSYN 100 NS 2 lr 800 Oral 480 120 Other: Estimated Void Large # Bowel Movements 0 Estimated Stool Amount Small # Voids 2 Gen:No distress Neuro:AAOx3 HEENT:PERRL, MMM Neck:supple Heart:RRR no murmur Lungs:CTA BL Abd:+BS NTND soft Skin: No rash MSK: no spine tenderness Laboratory Results - last 24 hr 11/08/16 11/08/16 11/08/16 11:52 16:38 21:32 POC Glucose (mg/dL) 115 H 202 H 194 H 11/09/16 07:22 POC Glucose (mg/dL) [address] chest progression of BL nodular infiltrates Microbiology 11/08/16 14:15 Misc Fluid (See Comment) - Bronchial Washing Gram Stain - Final 11/08/16 14:15 Misc Fluid (See Comment) - Bronchial Washing Body Fluid Culture - Preliminary No Growth Day 1 11/04/16 00:18 Blood Venous Aerobic Blood Culture - Final No Growth Day 5 11/04/16 00:18 Blood Venous Anaerobic Blood Culture - Final No Growth Day 5 11/04/16 00:18 Blood Venous Blood Culture - Final 11/04/16 00:17 Blood Venous Aerobic Blood Culture - Final No Growth Day 5 11/04/16 00:17 Blood Venous Anaerobic Blood Culture - Final No Growth Day 5 11/04/16 00:17 Blood Venous Blood Culture - Final 11/08/16 14:15 Respiratory - Bronchial Washing Acid Fast Bacilli Smear - Final Assessment: 1. Leukocytosis due to pulmonary process due to CAP, improving on zosyn; TBB and BAL results pending 2. diabetes, rule out other acquired immunodeficiency Plan: 1. treat with zosyn for 7 days 2. SPEP and IgA, IgG, IgM levels Discussed with BETTIE James
--- NOTE | 2016-11-09 16:19 | PN ---
Subjective Date of Service: 11/09/16 Interval History: Patient seen and examined at bedside. Pt states that he is feeling well and his breathing continues to improve. Denies fever, chills, shortness of breath, chest discomfort, N/V/D. Reports feeling congested this morning but h as not been coughing anything up. Energy has improved and has a good appetite. Family History: Unchanged from Admission Social History: Unchanged from Admission Past Medical History: Unchanged from Admission Objective Active Medications: Acetaminophen (Tylenol Tab*) 650 mg PO Q4H PRN Reason: FEVER/HEADACHE Aspirin (Aspirin Ec Low Dose*) 81 mg PO DAILY [facility] Atorvastatin Calcium (Lipitor*) 40 mg PO 2100 [facility] Canagliflozin (Invokana (Nf)) 100 mg PO QAM [facility] Dextrose (D50w Syringe 50 Ml*) 12.5 gm IV PUSH .FOR FS < 60 - SS PRN Reason: FS < 60 Enoxaparin Sodium (Lovenox(*)) 40 mg SUBCUT DAILY@0600 [facility] Heparin Sodium (Porcine) (Heparin Flush Picc/Ml/Cvc(*)) 1 ml FLUSH 0600,1800 [facility] Reason: Protocol Piperacillin Sod/Tazobactam Sod (Zosyn 3.375 Gm In Ns Premix*) 3.375 gm in 100 mls @ 25 mls/hr IVPB Q8H [facility] Indomethacin (Indocin Cap*) 25 mg PO TID WITH MEALS PRN Reason: PAIN/ INFLAMMATION Insulin Glargine (Lantus(*)) 60 units SUBCUT BEDTIME [facility] Insulin Human Lispro (Humalog*) 0 units SUBCUT ACHS [facility] Reason: Protocol Losartan Potassium (Cozaar Tab*) 100 mg PO QAM [facility] Metformin HCl (Glucophage*) 250 mg PO BID WITH MEALS [facility] Metoprolol Succinate (Toprol Xl Tab*) 25 mg PO DAILY [facility] Multivitamins/Minerals (Theragran/Minerals Tab*) 1 tab PO DAILY [facility] Vital Signs 11/08/16 11/08/16 11/08/16 16:45 17:36 19:50 Temperature 98.0 F 98.4 F 98.0 F Pulse Rate 70 75 80 Respiratory 16 16 16 Rate Blood Pressure 110/54 124/56 134/51 (mmHg) O2 Sat by Pulse 95 94 95 Oximetry 11/08/16 11/08/16 11/09/16 20:00 21:42 00:53 Temperature 98.3 F 98.5 F Pulse Rate 83 74 Respiratory 16 16 17 Rate Blood Pressure 150/54 130/46 (mmHg) O2 Sat by Pulse 94 94 Oximetry 11/09/16 11/09/16 11/09/16 04:22 07:36 08:00 Temperature 98.6 F 98.5 F Pulse Rate 71 84 Respiratory 16 17 Rate Blood Pressure 127/40 137/58 (mmHg) O2 Sat by Pulse 94 94 94 Oximetry 11/09/16 11:39 Temperature 98.4 F Pulse Rate 81 Respiratory Rate Blood Pressure 126/40 (mmHg) O2 Sat by Pulse 94 Oximetry Oxygen Devices in Use Now: None Appearance: NAD, sitting up in a chair. Eyes: No Scleral Icterus, PERRLA Ears/Nose/Mouth/Throat: Mucous Membranes Moist Respiratory: Symmetrical Chest Expansion and Respiratory Effort, Clear to Auscultation Cardiovascular: NL Sounds; No Murmurs; No JVD, RRR Abdominal: NL Sounds; No Tenderness; No Distention Extremities: - - Mild edema to left ankle Skin: No Rash or Ulcers Neurological: Alert and Oriented x 3, NL Muscle Strength and Tone Lines/Tubes/Other Access: Clean, Dry and Intact Other Access - midline, site benign Nutrition: Taking PO's Result Diagrams: 11/06/16 04:52 11/06/16 04:52 Microbiology and Other Data: Microbiology 11/08/16 14:15 Gram Stain - Final Misc Fluid (See Comment) - Bronchial Washing Body Fluid Culture - Preliminary No Growth Day 1 11/08/16 14:15 Acid Fast Bacilli Smear - Final Respiratory - Bronchial Washing Diagnostic Imaging: CXR - poor quality, diffuse patchy densities CT chest - worsening diffuse infiltrate with multiple nodules at least one of which is new Assess/Plan/Problems-Billing Assessment: Mr. Rainey is a very pleasant 76 yo gentleman with IDDM, gout, HTN, HLD, BPH who was recently admitted with PNA who returns with new fevers and malaise with evidence of worsening PNA. - Patient Problems (1) Pneumonia Code(s): J18.9 - PNEUMONIA, UNSPECIFIED ORGANISM SNOMED Code(s): 731764065 Comment: - Unknown pathogen - Urine negative for legionella and strep pneumo antigens, also negative for RSV , influenza, cryptococcus and histoplasma - Previously improved with ceftriaxone/azithro but quickly failed when he was discharged with azithro/Cefdinir and had been previously treated with oral Levaquin - Now improving with Zosyn - Afebrile since admission, resolved leukocytosis - Blood cultures, no growth day 5 - Bronchial wash pending - Infectious disease following - S/P bronchoscopy 11/08 - Continue Zosyn for a total of 7 days - Will repeat chest xray on Sunday (2) Lung nodules Code(s): R91.8 - OTHER NONSPECIFIC ABNORMAL FINDING OF LUNG FIELD SNOMED Code( s): 421851618 Comment: - Multiple small nodules noted, largest 9mm - Repeat CT shows at least one new nodule more consistent with infectious or inflammatory process - He has previously improved with abx, making infectious etiology more likely - Pulm consult, input appreciated - Plan for bronchoscopy (3) Diabetes Code(s): E11.9 - TYPE 2 DIABETES MELLITUS WITHOUT COMPLICATIONS SNOMED Code(s) : 34552285 Comment: - IDDM - Good glycemic control - Continue Metformin and Invokana - Continue Lantus and SS Humalog (4) BPH (benign prostatic hyperplasia) Code(s): N40.0 - BENIGN PROSTATIC HYPERPLASIA WITHOUT LOWER URINRY TRACT SYMP SNOMED Code(s): 769662629 (5) HLD (hyperlipidemia) Code(s): E78.5 - HYPERLIPIDEMIA, UNSPECIFIED SNOMED Code(s): 18354394 Comment: - Continue atorvastatin (6) HTN (hypertension) Code(s): I10 - ESSENTIAL (PRIMARY) HYPERTENSION SNOMED Code(s): 03883936 Comment: - Normotensive - Continue losartan and metoprolol (7) DVT prophylaxis Code(s): AIS9202 - SNOMED Code(s): 582007294 Comment: - SQ Lovenox (8) Full code status Code(s): Z78.9 - OTHER SPECIFIED HEALTH STATUS SNOMED Code(s): 682224422 Status and Disposition: Inpatient. Pending ID consult. Plan for bronchoscopy today.
[2016-11-09] MEDS: Atorvastatin* 40 MG TAB PO SCH (20:21)
[2016-11-09] MEDS: Insulin GLARGINE(*) 1 UNITS UNIT SUBCUT SCH (20:55)
--- NOTE | 2016-11-09 23:18 | RAD ---
Indication: Post RIGHT lung transbronchial biopsy. Assess for pneumothorax. Comparison: November 04, 2016 CT. November 03, 2016 chest radiograph. Technique: Upright AP radiographs of the chest on inspiration and expiration. Report: Negative for pneumothorax. Mild worsening of bilateral mid to lower lung zone alveolar and interstitial consolidation compared with the November 03, 2016 exam. Grossly clear pleural spaces. Negative for pneumothorax. The heart, pulmonary vasculature, and mediastinal contours are unremarkable. IMPRESSION: Negative for pneumothorax post transbronchial RIGHT lung biopsy.
[2016-11-10] MEDS: Piperac/Tazob 3.375 gm in NS* 3.375 GM/100 ML BAG IVPB SCH ×3 (05:57→23:15)
[2016-11-10] MEDS: Enoxaparin(*) 40 MG/0.4 ML SYR SUBCUT SCH (05:58)
[2016-11-10] MEDS: PTO:Canagliflozin (NF) 100 MG TAB PO SCH (09:28)
[2016-11-10] MEDS: Losartan TAB* 25 MG PO SCH (09:28)
[2016-11-10] MEDS: Multivitamins/Minerals TAB PO SCH (09:29)
[2016-11-10] MEDS: metFORMIN* 500 MG TAB PO SCH ×2 (09:29→17:43)
[2016-11-10] MEDS: Metoprolol Succinate XL TAB* 25 MG PO SCH (09:29)
[2016-11-10] MEDS: Aspirin EC Low Dose* 81 MG TAB.EC PO SCH (09:29)
[2016-11-10] MEDS: Insulin LISPRO* 1 UNITS UNIT SUBCUT SCH ×4 (09:31→20:59)
--- NOTE | 2016-11-10 11:21 | PN ---
Subjective Date of Service: 11/10/16 Interval History: Patient seen and examined at bedside. Denies fever, chills, shortness of breath , chest discomfort, N/V/D. Pt states that he feels well and is anxious to be discharged to home in the morning. Family History: Unchanged from Admission Social History: Unchanged from Admission Past Medical History: Unchanged from Admission Objective Active Medications: Acetaminophen (Tylenol Tab*) 650 mg PO Q4H PRN Reason: FEVER/HEADACHE Aspirin (Aspirin Ec Low Dose*) 81 mg PO DAILY [facility] Atorvastatin Calcium (Lipitor*) 40 mg PO 2100 [facility] Canagliflozin (Invokana (Nf)) 100 mg PO QAM [facility] Dextrose (D50w Syringe 50 Ml*) 12.5 gm IV PUSH .FOR FS < 60 - SS PRN Reason: FS < 60 Enoxaparin Sodium (Lovenox(*)) 40 mg SUBCUT DAILY@0600 [facility] Heparin Sodium (Porcine) (Heparin Flush Picc/Ml/Cvc(*)) 1 ml FLUSH 0600,1800 [facility] Reason: Protocol Piperacillin Sod/Tazobactam Sod (Zosyn 3.375 Gm In Ns Premix*) 3.375 gm in 100 mls @ 25 mls/hr IVPB Q8H [facility] Indomethacin (Indocin Cap*) 25 mg PO TID WITH MEALS PRN Reason: PAIN/ INFLAMMATION Insulin Glargine (Lantus(*)) 60 units SUBCUT BEDTIME [facility] Insulin Human Lispro (Humalog*) 0 units SUBCUT ACHS [facility] Reason: Protocol Losartan Potassium (Cozaar Tab*) 100 mg PO QAM [facility] Metformin HCl (Glucophage*) 250 mg PO BID WITH MEALS [facility] Metoprolol Succinate (Toprol Xl Tab*) 25 mg PO DAILY [facility] Multivitamins/Minerals (Theragran/Minerals Tab*) 1 tab PO DAILY [facility] Vital Signs 11/09/16 11/09/16 11/09/16 11:39 15:59 16:00 Temperature 98.4 F 98.7 F Pulse Rate 81 76 Respiratory 17 Rate Blood Pressure 126/40 132/53 (mmHg) O2 Sat by Pulse 94 94 94 Oximetry 11/09/16 11/09/16 11/10/16 20:00 20:04 00:04 Temperature 98.3 F 98.7 F Pulse Rate 78 76 Respiratory 16 17 14 Rate Blood Pressure 131/52 131/55 (mmHg) O2 Sat by Pulse 95 93 Oximetry Oxygen Devices in Use Now: None Appearance: NAD, sitting up in chair Eyes: No Scleral Icterus, PERRLA Ears/Nose/Mouth/Throat: Mucous Membranes Moist Respiratory: Symmetrical Chest Expansion and Respiratory Effort, Clear to Auscultation Cardiovascular: NL Sounds; No Murmurs; No JVD, RRR Abdominal: NL Sounds; No Tenderness; No Distention Extremities: - - Left ankle edema Skin: No Rash or Ulcers Neurological: Alert and Oriented x 3, NL Muscle Strength and Tone Lines/Tubes/Other Access: Clean, Dry and Intact Peripheral IV - site benign Nutrition: Taking PO's Result Diagrams: 11/06/16 04:52 11/06/16 04:52 Microbiology and Other Data: Microbiology 11/08/16 14:15 Gram Stain - Final Misc Fluid (See Comment) - Bronchial Washing Body Fluid Culture - Preliminary No Growth Day 1 11/08/16 14:15 Acid Fast Bacilli Smear - Final Respiratory - Bronchial Washing Diagnostic Imaging: CXR - poor quality, diffuse patchy densities CT chest - worsening diffuse infiltrate with multiple nodules at least one of which is new Assess/Plan/Problems-Billing Assessment: Mr. Rainey is a very pleasant 76 yo gentleman with IDDM, gout, HTN, HLD, BPH who was recently admitted with PNA who returns with new fevers and malaise with evidence of worsening PNA. - Patient Problems (1) Pneumonia Code(s): J18.9 - PNEUMONIA, UNSPECIFIED ORGANISM SNOMED Code(s): 012585268 Comment: - Unknown pathogen - Urine negative for legionella and strep pneumo antigens, also negative for RSV , influenza, cryptococcus and histoplasma - Previously improved with ceftriaxone/azithro but quickly failed when he was discharged with azithro/Cefdinir and had been previously treated with oral Levaquin - Now improving with Zosyn - Afebrile since admission, resolved leukocytosis - Blood cultures, no growth day 5 - Infectious disease following - S/P bronchoscopy 11/08. Bronchial wash fluid with no growth - Continue Zosyn for a total of 7 days, will complete tonight - Will repeat chest xray in the morning (2) Lung nodules Code(s): R91.8 - OTHER NONSPECIFIC ABNORMAL FINDING OF LUNG FIELD SNOMED Code( s): 357159977 Comment: - Multiple small nodules noted, largest 9mm - Repeat CT shows at least one new nodule more consistent with infectious or inflammatory process - He has previously improved with abx, making infectious etiology more likely - Pulm consult, input appreciated - Plan for bronchoscopy (3) Gout flare Code(s): M10.9 - GOUT, UNSPECIFIED SNOMED Code(s): 77823872 Comment: - Left ankle - Continue indomethacin (4) Diabetes Code(s): E11.9 - TYPE 2 DIABETES MELLITUS WITHOUT COMPLICATIONS SNOMED Code(s) : 18950074 Comment: - IDDM - Good glycemic control - Continue Metformin and Invokana - Continue Lantus and SS Humalog (5) BPH (benign prostatic hyperplasia) Code(s): N40.0 - BENIGN PROSTATIC HYPERPLASIA WITHOUT LOWER URINRY TRACT SYMP SNOMED Code(s): 911565234 (6) HLD (hyperlipidemia) Code(s): E78.5 - HYPERLIPIDEMIA, UNSPECIFIED SNOMED Code(s): 45961247 Comment: - Continue atorvastatin (7) HTN (hypertension) Code(s): I10 - ESSENTIAL (PRIMARY) HYPERTENSION SNOMED Code(s): 38311266 Comment: - Normotensive - Continue losartan and metoprolol (8) DVT prophylaxis Code(s): VFD9486 - SNOMED Code(s): 308413609 Comment: - SQ Lovenox (9) Full code status Code(s): Z78.9 - OTHER SPECIFIED HEALTH STATUS SNOMED Code(s): 286733566 Status and Disposition: Inpatient. Plan for discharge to home in the morning.
[2016-11-10] MEDS: Indomethacin CAP* 25 MG CAP PO PRN (12:58)
[2016-11-10] MEDS: Insulin GLARGINE(*) 1 UNITS UNIT SUBCUT SCH (20:59)
[2016-11-10] MEDS: Atorvastatin* 40 MG TAB PO SCH (21:00)
[2016-11-11] MEDS: Piperac/Tazob 3.375 gm in NS* 3.375 GM/100 ML BAG IVPB SCH (06:06)
[2016-11-11] MEDS: Enoxaparin(*) 40 MG/0.4 ML SYR SUBCUT SCH (06:06)
[2016-11-11 07:52] VITALS: BP 121/53
[2016-11-11] MEDS: Insulin LISPRO* 1 UNITS UNIT SUBCUT SCH (07:52)
--- NOTE | 2016-11-11 07:56 | RAD ---
INDICATION: Pneumonia, follow-up. COMPARISON: Comparison is made with a prior chest x-ray studies from October 27, 2016 and November 08, 2016. TECHNIQUE: Dual-energy PA and lateral views of the chest were obtained. FINDINGS: Cardiac and mediastinal contours appear to be within normal limits. There are patchy infiltrates in the mid and lower lung somers likely unchanged from the prior exam taken in account differences in technique. No pleural effusion is seen. IMPRESSION: BILATERAL INFILTRATES, UNCHANGED.
[2016-11-11] MEDS: Metoprolol Succinate XL TAB* 25 MG PO SCH (08:12)
[2016-11-11] MEDS: Multivitamins/Minerals TAB PO SCH (08:12)
[2016-11-11] MEDS: Losartan TAB* 25 MG PO SCH (08:12)
[2016-11-11] MEDS: PTO:Canagliflozin (NF) 100 MG TAB PO SCH (08:13)
[2016-11-11] MEDS: metFORMIN* 500 MG TAB PO SCH (08:13)
[2016-11-11] MEDS: Aspirin EC Low Dose* 81 MG TAB.EC PO SCH (08:13)
--- NOTE | 2016-11-11 08:14 | DCNOTE ---
Subjective Date of Service: 11/11/16 Interval History: Patient seen and examined at bedside. He denies fever/chills, CP, SOB, abd pain, n/v. Reports left leg/ankle "feels better." Eager for discharge home today. No acute concerns from patient or nursing. Family History: Unchanged from Admission Social History: Unchanged from Admission Past Medical History: Unchanged from Admission Objective Active Medications: Acetaminophen (Tylenol Tab*) 650 mg PO Q4H PRN PRN Reason: FEVER/HEADACHE Aspirin (Aspirin Ec Low Dose*) 81 mg PO DAILY [facility] Last Admin: 11/10/16 09:29 Dose: 81 mg Atorvastatin Calcium (Lipitor*) 40 mg PO 2100 [facility] Last Admin: 11/10/16 21:00 Dose: 40 mg Canagliflozin (Invokana (Nf)) 100 mg PO QAM [facility] Last Admin: 11/10/16 09:28 Dose: 100 mg Dextrose (D50w Syringe 50 Ml*) 12.5 gm IV PUSH .FOR FS < 60 - SS PRN PRN Reason: FS < 60 Enoxaparin Sodium (Lovenox(*)) 40 mg SUBCUT DAILY@0600 [facility] Last Admin: 11/11/16 06:06 Dose: 40 mg Heparin Sodium (Porcine) (Heparin Flush Picc/Ml/Cvc(*)) 1 ml FLUSH 0600,1800 [facility] PRN Reason: Protocol Last Admin: 11/11/16 06:11 Dose: Not Given Piperacillin Sod/Tazobactam Sod (Zosyn 3.375 Gm In Ns Premix*) 3.375 gm in 100 mls @ 25 mls/hr IVPB Q8H [facility] Last Admin: 11/11/16 06:06 Dose: 25 mls/hr Indomethacin (Indocin Cap*) 25 mg PO TID WITH MEALS PRN PRN Reason: PAIN/INFLAMMATION Last Admin: 11/10/16 12:58 Dose: 25 mg Insulin Glargine (Lantus(*)) 60 units SUBCUT BEDTIME [facility] Last Admin: 11/10/16 20:59 Dose: 60 unit Insulin Human Lispro (Humalog*) 0 units SUBCUT ACHS [facility] PRN Reason: Protocol Last Admin: 11/11/16 07:52 Dose: Not Given Losartan Potassium (Cozaar Tab*) 100 mg PO QAM [facility] Last Admin: 11/10/16 09:28 Dose: 100 mg Metformin HCl (Glucophage*) 250 mg PO BID WITH MEALS [facility] Last Admin: 11/10/16 17:43 Dose: 250 mg Metoprolol Succinate (Toprol Xl Tab*) 25 mg PO DAILY [facility] Last Admin: 11/10/16 09:29 Dose: 25 mg Multivitamins/Minerals (Theragran/Minerals Tab*) 1 tab PO DAILY [facility] Last Admin: 11/10/16 09:29 Dose: 1 tab Vital Signs 11/10/16 11/10/16 11/10/16 15:48 16:00 19:32 Temperature 98.2 F 97.4 F Pulse Rate 79 78 Respiratory 16 16 Rate Blood Pressure 126/46 106/71 (mmHg) O2 Sat by Pulse 96 96 95 Oximetry 11/10/16 11/10/16 11/11/16 21:28 23:32 07:28 Temperature 98.0 F 97.9 F Pulse Rate 67 73 Respiratory 18 16 16 Rate Blood Pressure 126/58 121/53 (mmHg) O2 Sat by Pulse 94 97 Oximetry 11/11/16 07:55 Temperature Pulse Rate Respiratory 18 Rate Blood Pressure (mmHg) O2 Sat by Pulse 97 Oximetry Oxygen Devices in Use Now: None Appearance: Older male patient, OOB to chair, NAD Eyes: PERRLA Ears/Nose/Mouth/Throat: Mucous Membranes Moist Neck: NL Appearance and Movements; NL JVP Respiratory: Symmetrical Chest Expansion and Respiratory Effort, Clear to Auscultation, - - diminished bases, good aeration in all lung somers Cardiovascular: NL Sounds; No Murmurs; No JVD, RRR Abdominal: NL Sounds; No Tenderness; No Distention Extremities: - - left ankle edema Skin: No Rash or Ulcers Neurological: Alert and Oriented x 3 Lines/Tubes/Other Access: Clean, Dry and Intact Peripheral IV Nutrition: Taking PO's Result Diagrams: 11/06/16 04:52 11/06/16 04:52 Microbiology and Other Data: Microbiology 11/08/16 14:15 Gram Stain - Final Misc Fluid (See Comment) - Bronchial Washing Body Fluid Culture - Preliminary No Growth Day 1 11/08/16 14:15 Acid Fast Bacilli Smear - Final Respiratory - Bronchial Washing Diagnostic Imaging: CXR - poor quality, diffuse patchy densities CT chest - worsening diffuse infiltrate with multiple nodules at least one of which is new Assess/Plan/Problems-Billing Assessment: Mr. Rainey is a very pleasant 76 yo gentleman with IDDM, gout, HTN, HLD, BPH who was recently admitted with PNA who returns with new fevers and malaise with evidence of worsening PNA. - Patient Problems (1) Pneumonia Code(s): J18.9 - PNEUMONIA, UNSPECIFIED ORGANISM Comment: Unknown pathogen Urine negative for legionella and strep pneumo antigens, also negative for RSV, influenza, cryptococcus and histoplasma Previously improved with ceftriaxone/azithro but quickly failed when he was discharged with azithro/Cefdinir and had been previously treated with oral Levaquin Now improving with Zosyn, has completed 7 day course Afebrile since admission, resolved leukocytosis Blood cultures, no growth day 5 S/P bronchoscopy 11/08. Bronchial wash fluid with no growth Repeat CXR shows bilateral infiltrates, unchanged. Outpatient follow-up with ID and pulm. (2) Lung nodules Code(s): R91.8 - OTHER NONSPECIFIC ABNORMAL FINDING OF LUNG FIELD Comment: Multiple small nodules noted, largest 9mm Repeat CT shows at least one new nodule more consistent with infectious or inflammatory process. He has previously improved with abx, making infectious etiology more likely. Pulm consult, input appreciated (3) Gout flare Code(s): M10.9 - GOUT, UNSPECIFIED Comment: Left ankle Continue indomethacin (4) Diabetes Code(s): E11.9 - TYPE 2 DIABETES MELLITUS WITHOUT COMPLICATIONS Comment: IDDM Good glycemic control Continue Metformin and Invokana Continue Lantus and SS Humalog (5) BPH (benign prostatic hyperplasia) Code(s): N40.0 - BENIGN PROSTATIC HYPERPLASIA WITHOUT LOWER URINRY TRACT SYMP (6) HLD (hyperlipidemia) Code(s): E78.5 - HYPERLIPIDEMIA, UNSPECIFIED Comment: Continue atorvastatin (7) HTN (hypertension) Code(s): I10 - ESSENTIAL (PRIMARY) HYPERTENSION Comment: Normotensive Continue losartan and metoprolol (8) DVT prophylaxis Code(s): SQS2118 - Comment: SQ Lovenox (9) Full code status Code(s): Z78.9 - OTHER SPECIFIED HEALTH STATUS Status and Disposition: Inpatient. D/c to home with PCP, pulm, and ID follow-up.
[2016-11-11 16:00] LABS: Immunoglobulin A 436 mg/dL (61 - 356); Immunoglobulin G 822 mg/dL (767 - 1590); Immunoglobulin M 42 mg/dL (37 - 286)
[2016-11-11 16:57] LABS: Albumin 2.5 g/dL (3.4-4.7); Gamma Globulin 1.1 g/dL (0.6-1.6); Total Protein(PEP) 6.3 g/dL (6.3 - 7.9)
--- NOTE | 2016-11-12 02:31 | DS ---
MEDICINE DISCHARGE SUMMARY: DATE OF ADMISSION: 11/04/16 DATE OF DISCHARGE: 11/11/16 PROVIDER: Anushka Peoples NP ATTENDING PHYSICIAN: Dr. Fernie Menjivar* (as dictated by Anushka Peoples NP). CONSULTING PHYSICIANS: 1. Dr. Schroeder, Infectious Disease. 2. Dr. Barksdale, Pulmonology. PRIMARY CARE PROVIDER: Dr. Green. PRIMARY DISCHARGE DIAGNOSES: 1. Recurrent pneumonia. 2. Lung nodules. SECONDARY DISCHARGE DIAGNOSES: 1. Gout. 2. Benign prostatic hyperplasia. 3. Type 2 diabetes. 4. Hypertension. 5. Hyperlipidemia. HOME MEDICATIONS UPON DISCHARGE: 1. Multivitamin 1 tab daily. 2. Metformin ER 500 mg q.a.m. 3. Irbesartan 300 mg q.a.m. 4. Lantus 60 units subcu bedtime. 5. Indomethacin 25 mg t.i.d. with meals p.r.n. 6. Invokana 100 mg q.a.m. 7. Atorvastatin 40 mg q.a.m. 8. Aspirin 81 mg daily. 9. Metoprolol succinate XL 25 mg daily. HOSPITAL COURSE OF STAY: For full details, please refer to the H and P provided by Dr. Tyler on 11/04/16. In summary, Mr. Rainey is a 76-year-old man , who was previously discharged from the hospital with a diagnosis of pneumonia , who returned to the emergency room with a 102 fever and dyspnea on exertion. The patient was previously discharged with a CT that showed lung nodules in a 7- mm range as well as peripheral infiltrates. The patient was seen in consult by ID and had testing for cryptococcal antigen and histoplasma as well as for adenovirus and flu. He was originally discharged on cefdinir and azithromycin, but developed worsening dyspnea and dry cough and fever at home. Mr. Rainey was readmitted and started on Zosyn and seen again in consult by ID and Pulmonology. The patient continued to improve on Zosyn and his leukocytosis also improved. He did undergo a bronchoscopy and tolerated this well. Samples were taken and sent for microbiology and cytological exam and results are still pending. Biopsy and culture results will be followed up on by Dr. Barksdale when the patient sees her in consultation next week. Per Dr. Schroeder's recommendations , the patient completed 7 days of Zosyn. Testing results were sent out for an SPEP, IgA, IgG, and IgM levels. They are still pending and they will be followed up on when the patient follows up with Dr. Schroeder or with the patient 's PCP, Dr. Green. The patient had a repeat chest x-ray just prior to discharge, which showed bilateral infiltrates that remained unchanged. He denies fever, chills, chest pain, shortness of breath. He has no supplemental O2 requirements. He has completed his 7-day course of antibiotics. He did have a gout flare here in the hospital and is continuing his indomethacin with good effect. No other acute concerns. CONCERNS AT DISCHARGE: Mr. Rainey will be discharged to home on 11/11/16 with a plan to follow up with Dr. Green on November 14, as well as Dr. Niecy Barksdale on Sunday, November 15, and Dr. Schroeder the following week on November 22. Labs to address in followup: The patient is awaiting results from cultures and cytology, which he will follow up with Dr. Barksdale for as well as his laboratory results from the IgG and SPEP studies. DIET: Consistent carbohydrate diet. ACTIVITY: As tolerated. CONDITION: Stable. DISPOSITION: To home. TIME SPENT: Time spent on this discharge was approximately 40 minutes. Again, this is only a brief summary of the patient's hospital course of stay. For full details, please refer to the full medical record. If you have any further questions or need further assistance, please feel free to contact me at . ANUSHKA PEOPLES NP CC: Dr. Green; Dr. Schroeder; Dr. Barksdale* [id number]/[id number]/[facility] #: [id number] RICKIE
== END 2016-11-11 10:45 | disposition home or self-care (01) | DRG 168 ==
LOC: ED 20:48 → MEDTELE 11-04 02:55 → MED 11-06 18:11
PROVIDERS: ADMIT Internal Medicine; ATTEND Internal Medicine
PROC: 0BBF8ZX Excision of Right Lower Lung Lobe, Via Natural or Artificial Opening Endoscopic, Diagnostic (ICD-10-PCS; 2016-11-08)
PROC: 0BBD8ZX Excision of Right Middle Lung Lobe, Via Natural or Artificial Opening Endoscopic, Diagnostic (ICD-10-PCS; principal; 2016-11-08 13:00)
DX: J18.9 Pneumonia, unspecified organism (principal); E11.9 Type 2 diabetes mellitus without complications; I10 Essential (primary) hypertension; R91.8 Other nonspecific abnormal finding of lung field; M10.9 Gout, unspecified; N40.0 Benign prostatic hyperplasia without lower urinary tract symptoms; E78.5 Hyperlipidemia, unspecified; Z79.82 Long term (current) use of aspirin; Z79.84 Long term (current) use of oral hypoglycemic drugs; Z79.4 Long term (current) use of insulin; Z79.899 Other long term (current) drug therapy; Z91.048 Other nonmedicinal substance allergy status; Z82.49 Family history of ischemic heart disease and other diseases of the circulatory system; Z80.42 Family history of malignant neoplasm of prostate; Z87.891 Personal history of nicotine dependence
CPT/HCPCS: 36415; 71010; 71020; 71250; 80048; 80053; 82784; 83605; 84155; 84165; 84484; 85025; 86140; 87040; 87070; 87102; 87116; 87205; 87206; 87252; 88112; 88305; 88312; 93005; A9270-GY; J0330; J1650; J2250; J2543; J2704; J3010

== ENCOUNTER 2016-11-13 21:10 | Inpatient (IN) | payer MEDICARE ==
[~2016-11-13 21:10] MED LIST changes: -Levofloxacin TAB* 250 MG PO ONE; -Levofloxacin TAB* 750 MG ONE; +Lidocaine 1% INJ* 10 MG/ML 30 ML SDV ONE; +Lidocaine 2% JELLY* 6 ML JELLY TOPICAL ONE; +Lidocaine 2% PF* 10 ML AMP ONE
--- NOTE | 2016-11-13 21:36 | ED ---
Konrad Ceballos [place], scribed for Link Rossi MD on 11/13/16 at 2124 . Shortness of Breath - HPI Summary HPI Summary: Patient is a 76 y/o male who presents to the ED per EMS with SOB since 1700 today. Per EMS, he was released from the hospital 2 days ago for PNA and was doing well at home today before sx onset (hospitalized for 7 days). Pt has had PNA 2-3 times in the last couple of months. EMS reports that pts pulse ox was in the 80s when they arrived and he presented with AMS, tachycardia, and a fever of 101F. Pt states he took Tylenol 1 hour ago. Pt is on room air at home. - History of Current Complaint Time Seen by Provider: 11/13/16 21:11 Hx Obtained From: Patient, Family/Specialty Department Supervisor, EMS Onset/Duration: Sudden Onset, Lasting Hours, Resolved Timing: Constant Current Severity: None Dyspnea At: Rest Aggrevating Factors: Nothing Alleviating Factors: OTC Meds Associated Signs & Symptoms: Fever - Allergy/Home Medications Allergies/Adverse Reactions: Allergies Allergy/AdvReac Type Severity Reaction Status Date / Time Adhesive Tape Allergy Rash Verified 11/13/16 22:06 Home Medications: Home Medications Insulin Lispro [Humalog] 15 unit SC SEE INSTRUCTIONS 11/13/16 [History Confirmed 11/13/16] PMH/Surg Hx/FS Hx/Imm Hx Endocrine/Hematology History: Reports: Hx Diabetes - TYPE 2 Cardiovascular History: Reports: Hx Hypertension, Other Cardiovascular Problems/ Disorders Respiratory History: Reports: Other Respiratory Problems/Disorders - PNA History: Reports: Hx Benign Prostatic Hyperplasia, Hx Kidney Stones - HX OF, Other Problems/Disorders - ENLARGE PROSTATE Sensory History: Reports: Hx Cataracts - BILATERAL, Hx Contacts or Glasses - GLASSES Denies: Hx Hearing Aid Opthamlomology History: Reports: Hx Cataracts - BILATERAL, Hx Contacts or Glasses - GLASSES - Cancer History Cancer Type, 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 07/2008 LEFT ULNAR NERVE DECOMPRESSION, [facility]. 09/2008 ESWL LEFT RENAL CALCULUS WITH LEFT URETERAL STENT INSERTION, [facility]. 2015 RETINA SURGERY X 2 RIGHT EYE, [place] Hx Anesthesia Reactions: No - Family History Known Family History: Positive: Cardiac Disease, Hypertension, Diabetes - Social History Alcohol Use: None Hx Substance Use: No Substance Use Type: Reports: None Smoking Status (MU): Former Smoker Type: Cigarettes Amount Used/How Often: 2 PPD Length of Time of Smoking/Using Tobacco: 25+ YEAR Have You Smoked in the Last Year: No Review of Systems Positive: Fever Positive: Other - Tachycardia. Positive: Shortness Of Breath Neurological: Other - AMS All Other Systems Reviewed And Are Negative: Yes Physical Exam Triage Information Reviewed: Yes Vital Signs On Initial Exam: Initial Vitals Temp Pulse Resp BP Pulse Ox 98.4 F 108 26 140/65 94 11/13/16 21:20 11/13/16 21:20 11/13/16 21:20 11/13/16 21:20 11/13/16 21:20 Vital Signs Reviewed: Yes Appearance: Positive: No Pain Distress, Ill-Appearing Skin: Positive: Warm Head/Face: Positive: Normal Head/Face Inspection Eyes: Positive: TRINI ENT: Positive: Hearing grossly normal Neck: Positive: Supple Respiratory/Lung Sounds: Positive: Breath Sounds Present - coarse scattered bilat Cardiovascular: Positive: RRR Abdomen Description: Positive: Nontender, Soft Bowel Sounds: Positive: Present Musculoskeletal: Positive: Strength/ROM Intact Neurological: Positive: Alert, Oriented to Person Place, Time Diagnostics - Vital Signs Vital Signs Temp Pulse Resp BP Pulse Ox 11/13/16 21:25 98.4 F 107 22 146/68 95 11/13/16 21:20 98.4 F 108 26 140/65 94 - Laboratory Result Diagrams: 11/13/16 21:54 11/13/16 21:54 Lab Statement: Any lab studies that have been ordered have been reviewed, and results considered in the medical decision making process. - Radiology CXR Radiology Interpretation Completed By: Radiologist - IMPRESSION: Chronic interstitial disease with bibasilar airspace disease unchanged from previous exam. - EKG 2134 EKG Interpretation: Sinus tachycardia @ 103 bpm. Course/Dx - Diagnoses Provider Diagnoses: Fever - Physician Notifications Discussed Care of Patient With: Dr. Velazquez (hospitalist) @ 2214. Will admit. Instructed by Provider To: Admit As Inpatient Discharge - Discharge Plan Condition: Fair Disposition: ADMITTED TO [facility] The documentation as recorded by the Konrad cueto [place] accurately reflects the service I personally performed and the decisions made by , Link Rossi MD.
[2016-11-13 22:05] LABS: Hematocrit 37 % (42-52); Hemoglobin 12.1 g/dl (14.0-18.0); Mean Corpuscular HGB Conc 33 g/dl (31-36); Mean Corpuscular Hemoglobin 29 pg (27-31); Mean Corpuscular Volume 89 fL (80-94); Mean Platelet Volume 7 um3 (7.4-10.4); Red Blood Count 4.19 10^6/ul (4.0-5.4); Red Cell Distribution Width 14 % (10.5-15); White Blood Count 16.4 10^3/ul (3.5-10.8)
[2016-11-13 22:19] LABS: Albumin 3.6 g/dL (3.2-5.2); BUN/Creatinine Ratio 17.3 (8-20); Calcium 9.3 mg/dL (8.6-10.3); EGFR African American 71.1 (>60); EGFR Non-African American 55.3 (>60); Globulin 3.8 g/dL (2-4); Potassium 4.2 mmol/L (3.5-5.0); Total Bilirubin 0.6 mg/dL (0.2-1.0); Total Protein 7.4 g/dL (6.4-8.9)
--- NOTE | 2016-11-13 22:24 | RAD ---
Indication: Shortness of breath. 2 views of the chest including dual energy PA views demonstrate hyperinflated lung somers. Chronic interstitial disease is noted with scarring in the right midlung zone. Overall no changes noted since November 11, 2016. Bibasilar airspace disease is noted. IMPRESSION: Chronic interstitial disease with bibasilar airspace disease unchanged from previous exam.
--- NOTE | 2016-11-13 23:42 | HP ---
H&P (Free Text) History and Physical: PCP: Milagro Green MD Date/Time of Evaluation: 11/13/2016 2320 CC: F/C & sweats HPI: Mr Rainey is a 76YO male admitted to [facility] 11/01-11/02 and again 11/04- for relapsing pneumonia. Since the he has felt well until tonight when he sat down to dinner suddenly developing fever followed by chills and a profuse sweating prompting a call to EMS who found his saO2 in the high 80s upon arrival. Prior to his admission 11/01-11/02 he was seen in [facility] ED and discharged on PO levofloxacin, but continued to worsen prompting his return and admission on the during which he was treated with azithromycin & ceftriaxone with good results. He was discharged on PO azithromycin x4 days and cefdinir x7 days. Unfortunately he relapsed 2 days later requiring readmission and was treated with 7 days IV piperacillin/tazobactam again with good result. He was not discharged on oral ABX. CXR shows persistent pneumonia. WBCs have increased from 9.8k to 16.4k 89% neutrophils. Creatinine is 1.27, baseline 0.9. PMedHx DM2 HTN HLD BPH gout Ambulatory Orders Atorvastatin* [Lipitor 40 MG*] 40 mg PO QAM 01/11/16 Canagliflozin (NF) [Invokana (NF)] 100 mg PO QAM 01/11/16 Indomethacin CAP* [Indocin CAP*] 25 mg PO TID WITH MEALS PRN 01/11/16 Insulin Glargine [Lantus] 60 unit SUBCUT BEDTIME 01/11/16 Aspirin EC Low Dose* [Ecotrin EC Low Dose 81 MG*] 81 mg PO DAILY 10/27/16 Irbesartan (NF) [Avapro (NF)] 300 mg PO QAM 10/27/16 Metformin ER (NF) 250 mg PO BID 10/27/16 Multivitamins/Minerals TAB* [Theragran/minerals TAB*] 1 tab PO DAILY 10/27/16 Metoprolol Succinate XL TAB* [Toprol XL TAB*] 25 mg PO DAILY tab.xl 11/10/16 Insulin Lispro [Humalog] 15 unit SC SEE INSTRUCTIONS 11/13/16 Allergies Adhesive Tape Allergy (Verified 11/13/16 22:06) Rash PSurgHx OU cataract extraction R elbow surgery hernia repair SocHx: former smoker w/ ~20PYHX, no alcohol or recreational drugs; lives with his ; retired; full code status FamHx: positive for CAD & prostate CA ROS: as above, otherwise reviewed and all were negative Constitutional: NAD, normally developed, well-nourished elderly white male vitals: Vital Signs Temp 36.9 C 11/13/16 21:25 Pulse 96 11/13/16 23:30 Resp 31 11/13/16 23:30 BP 126/56 11/13/16 23:30 Pulse Ox 95 11/13/16 23:30 Intake & Output 11/12/16 11/13/16 11/13/16 23:59 11:59 23:59 Weight 83.915 kg HEENM: atraumatic; sclera/conjunctiva: non-icteric/clear; hearing: clinically intact; oropharynx: clear, mucosa tacky Neck: soft tissue: non-tender, no nuchal rigidity; thyroid: normal Pulmonary: moderate , good aeration, no accessory muscle use CV: RR/RR, normal S1S2, no carotid bruit, no jugular venous distention, 2+ B DP/ PT, no edema Abdominal: soft, non-distended, non-tender, no rebound/guarding/rigidity, normoactive bowel sounds, no hepatosplenomegaly or masses, no costovertebral angle tenderness Musculoskeletal: general: grossly intact; gait: stable Integumental: normal appearance and texture of exposed skin Psychiatric orientation: AA&O to PPS affect: calm mood: pleasant eye contact: good content: reliable responses: timely insight: good Testing: Lab Results 11/13/16 11/13/16 11/13/16 Range/Units 21:54 21:54 21:54 WBC 16.4 H (3.5-10.8) 10^3/ul RBC 4.19 (4.0-5.4) 10^6/ul Hgb 12.1 L (14.0-18.0) g/dl Hct 37 L (42-52) % MCV 89 (80-94) fL MCH 29 (27-31) pg MCHC 33 (31-36) g/dl RDW 14 (10.5-15) % Plt Count 224 (150-450) 10^3/ul MPV 7 L (7.4-10.4) um3 Neut % (Auto) 89.1 H (38-83) % Lymph % (Auto) 4.4 L (25-47) % [place] % (Auto) 4.5 (1-9) % Eos % (Auto) 1.3 (0-6) % Baso % (Auto) 0.7 (0-2) % Absolute Neuts (auto) 14.6 H (1.5-7.7) 10^3/ul Absolute Lymphs (auto) 0.7 L (1.0-4.8) 10^3/ul Absolute Monos (auto) 0.7 (0-0.8) 10^3/ul Absolute Eos (auto) 0.2 (0-0.6) 10^3/ul Absolute Basos (auto) 0.1 (0-0.2) 10^3/ul Absolute Nucleated RBC 0.01 10^3/ul Nucleated RBC % 0.1 D-Dimer, Quantitative (Less Than 230) ng/mL Sodium 134 (133-145) mmol/L Potassium 4.2 (3.5-5.0) mmol/L Chloride 101 (101-111) mmol/L Carbon Dioxide 24 (22-32) mmol/L Anion Gap 9 (2-11) mmol/L BUN 22 (6-24) mg/dL Creatinine 1.27 H (0.67-1.17) mg/dL Est GFR ( Amer) 71.1 (>60) Est GFR (Non-Af Amer) 55.3 (>60) BUN/Creatinine Ratio 17.3 (8-20) Glucose 189 H (70-100) mg/dL Lactic Acid 1.0 (0.5-2.0) mmol/L Calcium 9.3 (8.6-10.3) mg/dL Total Bilirubin 0.60 (0.2-1.0) mg/dL AST 18 (13-39) U/L ALT 21 (7-52) U/L Alkaline Phosphatase 69 (34-104) U/L Total Protein 7.4 (6.4-8.9) g/dL Albumin 3.6 (3.2-5.2) g/dL Globulin 3.8 (2-4) g/dL Albumin/Globulin Ratio 0.9 L (1-3) /15/17 Range/Units 21:54 WBC (3.5-10.8) 10^3/ul RBC (4.0-5.4) 10^6/ul Hgb (14.0-18.0) g/dl Hct (42-52) % MCV (80-94) fL MCH (27-31) pg MCHC (31-36) g/dl RDW (10.5-15) % Plt Count (150-450) 10^3/ul MPV (7.4-10.4) um3 Neut % (Auto) (38-83) % Lymph % (Auto) (25-47) % [place] % (Auto) (1-9) % Eos % (Auto) (0-6) % Baso % (Auto) (0-2) % Absolute Neuts (auto) (1.5-7.7) 10^3/ul Absolute Lymphs (auto) (1.0-4.8) 10^3/ul Absolute Monos (auto) (0-0.8) 10^3/ul Absolute Eos (auto) (0-0.6) 10^3/ul Absolute Basos (auto) (0-0.2) 10^3/ul Absolute Nucleated RBC 10^3/ul Nucleated RBC % D-Dimer, Quantitative 218 (Less Than 230) ng/mL Sodium (133-145) mmol/L Potassium (3.5-5.0) mmol/L Chloride (101-111) mmol/L Carbon Dioxide (22-32) mmol/L Anion Gap (2-11) mmol/L BUN (6-24) mg/dL Creatinine (0.67-1.17) mg/dL Est GFR ( Amer) (>60) Est GFR (Non-Af Amer) (>60) BUN/Creatinine Ratio (8-20) Glucose (70-100) mg/dL Lactic Acid (0.5-2.0) mmol/L Calcium (8.6-10.3) mg/dL Total Bilirubin (0.2-1.0) mg/dL AST (13-39) U/L ALT (7-52) U/L Alkaline Phosphatase (34-104) U/L Total Protein (6.4-8.9) g/dL Albumin (3.2-5.2) g/dL Globulin (2-4) g/dL Albumin/Globulin Ratio (1-3) ECG, personally reviewed: sinus tachycardia, rate 103 CXR, personally reviewed: IMPRESSION: Chronic interstitial disease with bibasilar airspace disease unchanged from previous exam. Impression: 76M presenting for 3rd admission this month for relapsing pneumonia DIAGNOSIS & PLAN Primary bibasilar pneumonia : followed by Nalini Schroeder MD ID, consider consulting in AM : IVFs : IV ABX : blood, sputum, & urine CXs : supplemental oxygen : influenza A/B & urine Legionella/S pneumo antigens negative 10/31/2016 : supportive care VIRGIE : hold irbesartan, metformin & avoid nephrotoxic agents until resolved : IVFs & trend renal function pulmonary nodules : followed by Claudine Barksdale MD pulmonology; consider consulting in AM : bronchial washings negative 11/08/2016 Secondary DM2 : continue home glargine : add AC carb counting & ACHS correctional lispro : check A1c : hold metformin as above : insulin carb ratio diet HTN : hold irbesartan until VIRGIE resolved : continue metoprolol HLD : continue atorvastatin Admission Rational: inpatient for relapsing pneumonia DVTp: heparin SQ & SCDs Code Status: full HCP:
[2016-11-14] MEDS ORDERED: Melatonin (NF) 3 MG TAB PO PRN (00:05)
[2016-11-14] MEDS ORDERED: Acetaminophen TAB* 325 MG PO PRN (00:05)
[2016-11-14] MEDS ORDERED: Albuterol 2.5 MG/3 ML NEB.SOL* (0.083%) INH PRN (00:05)
[2016-11-14] MEDS: NS 0.9% 1000 ML* 1,000 ML IV SCH ×4 (00:52→19:35)
[2016-11-14] MEDS ORDERED: Piperac/Tazob 3.375 gm in NS* 3.375 GM/100 ML BAG IVPB ONE (01:00)
[2016-11-14 05:17] LABS: Hematocrit 33 % (42-52); Hemoglobin 10.9 g/dl (14.0-18.0); Mean Corpuscular HGB Conc 33 g/dl (31-36); Mean Corpuscular Hemoglobin 29 pg (27-31); Mean Corpuscular Volume 89 fL (80-94); Mean Platelet Volume 7 um3 (7.4-10.4); Red Blood Count 3.71 10^6/ul (4.0-5.4); Red Cell Distribution Width 14 % (10.5-15); White Blood Count 16.4 10^3/ul (3.5-10.8)
[2016-11-14] MEDS: Piperac/Tazob 3.375 gm in NS* 3.375 GM/100 ML BAG IVPB SCH ×3 (05:39→21:50)
[2016-11-14 05:43] LABS: Calcium 8.4 mg/dL (8.6-10.3); EGFR African American 83.9 (>60); EGFR Non-African American 65.3 (>60); Potassium 3.9 mmol/L (3.5-5.0)
[2016-11-14] MEDS: Insulin LISPRO* 1 UNITS UNIT SUBCUT SCH ×7 (08:54→20:49)
[2016-11-14] MEDS: Metoprolol Succinate XL TAB* 25 MG PO SCH (08:54)
[2016-11-14] MEDS: Docusate CAP* 100 MG PO SCH ×2 (08:54→20:43)
[2016-11-14] MEDS: Aspirin EC Low Dose* 81 MG TAB.EC PO SCH (08:54)
[2016-11-14] MEDS: Atorvastatin* 40 MG TAB PO SCH (08:54)
--- NOTE | 2016-11-14 08:54 | CONS ---
PULMONARY CONSULTATION REPORT: DATE OF CONSULTATION: 11/14/16 REASON FOR CONSULTATION: Evaluation of fever, lung infiltrates. HISTORY OF PRESENT ILLNESS: The patient is a 76-year-old male known to me from recent [facility] admission for pneumonia. The patient was admitted twice prior to this current admission for similar symptoms. The patient was discharged on Sunday after being treated for recurrent pneumonia. The patient was doing well on Sunday and Sunday. The patient had episode of chills and spiked a high fever. Patient presented to the emergency room for further evaluation. Patient was noted to have fever in the emergency room and was also noted to have leukocytosis. Repeat chest x-ray showed persistence of airspace opacities.. Patient was started on antibiotics. Patient reports improvement in symptoms this morning. Patient denies significant cough or sputum production. Patient denies chest pain, palpitations, dizziness. Patient denies headaches, acid reflux symptoms, neck stiffness, diarrhea, abdominal pain , urinary symptoms. Patient had bronchoscopy during last visit, had bronchoalveolar lavage and transbronchial biopsy from right lower lobe. Bronchoalveolar lavage cultures are negative to date. Pathology results are still pending. PMedHx DM2 HTN HLD BPH GOUT Medications: Atorvastatin* [Lipitor 40 MG*] 40 mg PO QAM 01/11/16 Canagliflozin (NF) [Invokana (NF)] 100 mg PO QAM 01/11/16 Indomethacin CAP* [Indocin CAP*] 25 mg PO TID WITH MEALS PRN 01/11/16 Insulin Glargine [Lantus] 60 unit SUBCUT BEDTIME 01/11/16 Aspirin EC Low Dose* [Ecotrin EC Low Dose 81 MG*] 81 mg PO DAILY 10/27/16 Irbesartan (NF) [Avapro (NF)] 300 mg PO QAM 10/27/16 Metformin ER (NF) 250 mg PO BID 10/27/16 Multivitamins/Minerals TAB* [Theragran/minerals TAB*] 1 tab PO DAILY 10/27/16 Metoprolol Succinate XL TAB* [Toprol XL TAB*] 25 mg PO DAILY tab.xl 11/10/16 Insulin Lispro [Humalog] 15 unit SC SEE INSTRUCTIONS 11/13/16 Allergies: Adhesive Tape- rash PSurgHx OU cataract extraction R elbow surgery hernia repair SocHx: former smoker w/ ~20PYHX, no alcohol or recreational drugs; lives with his ; retired; full code status FamHx: positive for CAD & prostate CA ROS: All 14 systems reviewed, as above in HPI Physical Exam: Vitals: T: 36.9, Pulse- 72, O2 sat 95% on RA, BP- 126/56 Gen: Pt lying in bed in NAD HEENT: PERRLA Lungs: Clear to auscultation, No wheeze CVS: S1, S2+, no murmers ABd: Obese, BS+, NT Ext: No edema, Normal ROM RATING SPECIALIST: No focal defecits Skin: No rash, bruise Labs: Reviewed, positive for elevated WBC count at 16, elevated Cr CXR: Persistance of air space opacities without signficant interval change 11/04/16 CT: Diffuse interlobular septal thickening, patchy densities, multiple pulm nodules Microbiology: 11/09/16: BAL from RML : Benign bronchial cells/inflammation, no e/ o malignancy Neg bcx, strep ag, legionella, rsv Bronchial washing cultures negative for gram stain, fungal including PCP, AFB Path: 11/08/16 Lung transbronchial biopsy- pending I/R: 76 year old gentleman with h/o DM2, HTN, recurrent pneumonias who presents with fevers and hypoxia, leukocytosis, lung biopsy path is still pending but 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
[2016-11-14] MEDS: guaiFENesin ER TAB 600 MG PO SCH ×2 (08:55→20:43)
[2016-11-14] MEDS ORDERED: PTO:Canagliflozin (NF) 100 MG TAB PO SCH (09:00)
[2016-11-14] MEDS ORDERED: Tiotropium CAP.INH* CAP.INH/18 MCG INH SCH (09:00)
[2016-11-14] MEDS ORDERED: Spiriva Inhaler DEVICE* 1 EACH DEVICE INH ONE (09:00)
[2016-11-14] MEDS ORDERED: Mometasone/Formoter 200/5 MDI INH SCH (09:00)
--- NOTE | 2016-11-14 15:21 | PN ---
Subjective Date of Service: 11/14/16 Interval History: Pt is feeling ok currently. He states that he has been having some coughing but not continuously. He states that he has not brought up much sputum in the last few weeks that this process has been going on. He denies SOB at rest. He states he has not walked enough to know if he is SOB with exertion. Objective Active Medications: Acetaminophen (Tylenol Tab*) 650 mg PO Q6H PRN PRN Reason: FEVER/PAIN Last Admin: 11/14/16 03:37 Dose: 650 mg Albuterol (Ventolin 2.5 Mg/3 Ml Neb.Cadence*) 2.5 mg INH Q2H PRN PRN Reason: SOB/WHEEZING Aspirin (Aspirin Ec Low Dose*) 81 mg PO DAILY [facility] Last Admin: 11/14/16 08:54 Dose: 81 mg Atorvastatin Calcium (Lipitor*) 40 mg PO QAM [facility] Last Admin: 11/14/16 08:54 Dose: 40 mg Canagliflozin (Invokana (Nf)) 100 mg PO [facility] Last Admin: 11/14/16 09:06 Dose: Not Given Docusate Sodium (Colace Cap*) 200 mg PO BID [facility] Last Admin: 11/14/16 08:54 Dose: 200 mg Guaifenesin (Mucinex*) 1,200 mg PO BID [facility] Last Admin: 11/14/16 08:55 Dose: 1,200 mg Heparin Sodium (Porcine) (Heparin Vial(*)) 5,000 units SUBCUT Q8HR [facility] Sodium Chloride (Ns 0.9% 1000 Ml*) 1,000 mls @ 125 mls/hr IV PER RATE [facility] Last Admin: 11/14/16 11:22 Dose: 125 mls/hr Sodium Chloride (Ns 0.9% 1000 Ml*) 1,000 mls @ 0 mls/hr IV WIDE OPEN [facility] PRN Reason: Wide Open Stop: 11/15/16 00:31 Last Admin: 11/14/16 02:48 Dose: 990 mls/hr Piperacillin Sod/Tazobactam Sod (Zosyn 3.375 Gm In Ns Premix*) 3.375 gm in 100 mls @ 25 mls/hr IVPB Q8H [facility] Last Admin: 11/14/16 13:40 Dose: 25 mls/hr Insulin Glargine (Lantus(*)) 60 units SUBCUT BEDTIME [facility] Insulin Human Lispro (Humalog*) 0 units SUBCUT AC [facility] PRN Reason: Protocol Last Admin: 11/14/16 13:40 Dose: 4 units Insulin Human Lispro (Humalog*) 0 units SUBCUT ACHS [facility] PRN Reason: Protocol Last Admin: 11/14/16 12:26 Dose: Not Given Melatonin (Melatonin (Nf)) 3 mg PO BEDTIME PRN; Protocol PRN Reason: Sleep Metoprolol Succinate (Toprol Xl Tab*) 25 mg PO DAILY [facility] Last Admin: 11/14/16 08:54 Dose: 25 mg Vital Signs 11/13/16 11/13/16 11/13/16 23:28 23:30 23:45 Temperature 98.1 F Pulse Rate 103 96 Respiratory 20 31 Rate Blood Pressure 158/58 126/56 135/64 (mmHg) O2 Sat by Pulse 92 95 Oximetry 11/13/16 11/13/16 11/14/16 23:55 23:58 00:00 Temperature 100.1 F Pulse Rate 96 95 Respiratory 27 31 Rate Blood Pressure 130/57 (mmHg) O2 Sat by Pulse 95 94 Oximetry 11/14/16 11/14/16 11/14/16 00:04 03:28 07:23 Temperature 100.4 F 98.3 F Pulse Rate 100 74 Respiratory 20 16 18 Rate Blood Pressure 117/49 121/56 (mmHg) O2 Sat by Pulse 97 97 Oximetry 11/14/16 11/14/16 11/14/16 08:59 11:24 15:03 Temperature 98.1 F 98.1 F Pulse Rate 76 74 76 Respiratory 16 18 16 Rate Blood Pressure 115/53 113/41 (mmHg) O2 Sat by Pulse 96 97 98 Oximetry Oxygen Devices in Use Now: None Appearance: Elderly male lying in bed, NAD Eyes: No Scleral Icterus Ears/Nose/Mouth/Throat: Mucous Membranes Moist Respiratory: Symmetrical Chest Expansion and Respiratory Effort, Clear to Auscultation Cardiovascular: NL Sounds; No Murmurs; No JVD, RRR, No Edema Abdominal: NL Sounds; No Tenderness; No Distention Extremities: No Clubbing, Cyanosis Skin: No Rash or Ulcers, No Nodules or Sclerosis Neurological: Alert and Oriented x 3 Result Diagrams: 11/14/16 05:10 11/14/16 05:10 Assess/Plan/Problems-Billing Mr Rainey is a 76 yo M who has now been admitted for the third time this month for fever, chills, hypoxia and elevated WBC count of unclear cause. - Patient Problems (1) Pneumonia Current Visit: Yes Status: Acute Code(s): J18.9 - PNEUMONIA, UNSPECIFIED ORGANISM SNOMED Code(s): 208776683 Comment: I am less suspicious that the patient's current process is infectious but more likely this represents an inflammatory process (ie hypersensitivity rxn, sarcoidosis). Will continue zosyn for now. Will ask for ID consult again-? fungal. Will touch base with Dr. Barksdale for further recommendations. ? repeat CT scan to re-eval the infiltrates. (2) VIRGIE (acute kidney injury) Current Visit: Yes Status: Acute Code(s): N17.9 - ACUTE KIDNEY FAILURE, UNSPECIFIED SNOMED Code(s): 37154743 Comment: Creatinine again elevated on admission. Has trended down with hydration. Likely related to his diuretic use. (3) HTN (hypertension) Current Visit: Yes Status: Chronic Code(s): I10 - ESSENTIAL (PRIMARY) HYPERTENSION SNOMED Code(s): 15210038 Comment: BP is under good control. Continue (4) Diabetes Current Visit: Yes Status: Chronic Code(s): E11.9 - TYPE 2 DIABETES MELLITUS WITHOUT COMPLICATIONS SNOMED Code(s): 47076103 Comment: Sugars have been under good control. Continue invokana and lantus. Metformin currently on hold given his elevated creatinine. (5) HLD (hyperlipidemia) Current Visit: Yes Status: Chronic Code(s): E78.5 - HYPERLIPIDEMIA, UNSPECIFIED SNOMED Code(s): 74956378 Comment: Continue atorvastatin. (6) DVT prophylaxis Current Visit: Yes Status: Acute Code(s): OTI8197 - SNOMED Code(s): 392189583 Comment: SQ heparin (7) Full code status Current Visit: Yes Status: Acute Code(s): Z78.9 - OTHER SPECIFIED HEALTH STATUS SNOMED Code(s): 602997238
--- NOTE | 2016-11-14 15:25 | PN ---
<Katina Sawyer - Last Filed: 11/14/16 16:25> Infectious Disease Note Date of Evaluation: 11/14/16 SOAP: Consult Reason: Recurrent PNA Consult Requested by: Dr. Clinton Consult Attending: Dr. Fuad Schroeder #HPI 76 year old gentleman with DM2, HTN, HL, BPH, Gout, recurrent pneumonias ( admitted twice over past 2 weeks, last discharged on 11/11) who presents with fevers, worsening shortness of breath and hypoxia. Per patient, since discharge , was feeling well until the day of presentation when he spiked low grade fevers to 100s, chills, no productive cough, and subsequently brought in by EMS and found to be hypoxic to high 80s upon arrival to ED. He had presented earlier in October to the ED with fevers, cough, neg CXR but significant leukocytosis, initially prescribed LVQN but persistent symptoms, so was treated with Cefdinir/Azithro, and DC'ed on 11/02. During the second admission (11/04-11/11) chest CT shown diffuse interlobular septal thickening with patchy densities, bronched with BAL showing mostly benign bronchial cells, washings with neg cultures, and lung biopsy done and results still pending. He completed 7 days of IV Zosyn during that admission and was discharged home without PO abx. On this admission CXR here with interstitial infiltrates bilaterally, started on IV Zosyn, sats improved with 2-4 L of O2. ID is consulted for the etiology of recurrent PNAs. When interviewed by ID team, patient says dyspnea improved since being on O2, has not had fevers since being in-house. Frustrated that he has not received a diagnosis. 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, no industrial/heavy metal/other toxic exposures he is aware of former smoker, quit decades ago denies other toxic habits owns a cat, which he takes to [place] when he lives there for a part of the year (last visit was ) lives in the same home since 1984 #Home Meds Atorvastatin* [Lipitor 40 MG*] 40 mg PO QAM 01/11/16 [History Confirmed 11/13/16 ] Canagliflozin (NF) [Invokana (NF)] 100 mg PO QAM 01/11/16 [History Confirmed ] Indomethacin CAP* [Indocin CAP*] 25 mg PO TID WITH MEALS PRN 01/11/16 [History Confirmed 11/13/16] Insulin Glargine [Lantus] 60 unit SUBCUT BEDTIME 01/11/16 [History Confirmed ] Aspirin EC Low Dose* [Ecotrin EC Low Dose 81 MG*] 81 mg PO DAILY 10/27/16 [ History Confirmed 11/13/16] Irbesartan (NF) [Avapro (NF)] 300 mg PO QAM 10/27/16 [History Confirmed 11/13/16 ] Metformin ER (NF) 250 mg PO BID 10/27/16 [History Confirmed 11/13/16] Multivitamins/Minerals TAB* [Theragran/minerals TAB*] 1 tab PO DAILY 10/27/16 [ History Confirmed 11/13/16] Metoprolol Succinate XL TAB* [Toprol XL TAB*] 25 mg PO DAILY tab.xl 11/10/16 [ Rx Confirmed 11/13/16] Insulin Lispro [Humalog] 15 unit SC SEE INSTRUCTIONS 11/13/16 [History Confirmed 11/13/16] #Vitals Temp Pulse Resp BP Pulse Ox 36.7 C 76 16 113/41 98 11/14/16 15:03 11/14/16 15:03 11/14/16 15:03 11/14/16 15:03 11/14/16 15:03 #Physical Exam Gen: elderly man lying sideways on bed wearing NC no acute distress HEENT: PERRLA EOMI good dentition without oral lesions no cervical LA Respiratory: soft crackles heard bilaterally at bases, no wheezing Cardiac: nl s1 s2 no r/m/g Abd: soft ntnd + BS no organomegaly MSK: no erythema/swelling/ttp to shoulders, fingers, knees, ankles, back Skin/extremities: no rashes wwp throughout Neuro: AAOx3. no focal deficits Psych: flat affect #Current Meds Acetaminophen (Tylenol Tab*) 650 mg PO Q6H PRN PRN Reason: FEVER/PAIN Last Admin: 11/14/16 03:37 Dose: 650 mg Albuterol (Ventolin 2.5 Mg/3 Ml Neb.Cadence*) 2.5 mg INH Q2H PRN PRN Reason: SOB/WHEEZING Aspirin (Aspirin Ec Low Dose*) 81 mg PO DAILY [facility] Last Admin: 11/14/16 08:54 Dose: 81 mg Atorvastatin Calcium (Lipitor*) 40 mg PO QAM [facility] Last Admin: 11/14/16 08:54 Dose: 40 mg Canagliflozin (Invokana (Nf)) 100 mg PO QAM [facility] Last Admin: 11/14/16 09:06 Dose: Not Given Docusate Sodium (Colace Cap*) 200 mg PO BID [facility] Last Admin: 11/14/16 08:54 Dose: 200 mg Guaifenesin (Mucinex*) 1,200 mg PO BID [facility] Last Admin: 11/14/16 08:55 Dose: 1,200 mg Heparin Sodium (Porcine) (Heparin Vial(*)) 5,000 units SUBCUT Q8HR [facility] Sodium Chloride (Ns 0.9% 1000 Ml*) 1,000 mls @ 125 mls/hr IV PER RATE [facility] Last Admin: 11/14/16 11:22 Dose: 125 mls/hr Sodium Chloride (Ns 0.9% 1000 Ml*) 1,000 mls @ 0 mls/hr IV WIDE OPEN [facility] PRN Reason: Wide Open Stop: 11/15/16 00:31 Last Admin: 11/14/16 02:48 Dose: 990 mls/hr Piperacillin Sod/Tazobactam Sod (Zosyn 3.375 Gm In Ns Premix*) 3.375 gm in 100 mls @ 25 mls/hr IVPB Q8H [facility] Last Admin: 11/14/16 13:40 Dose: 25 mls/hr Insulin Glargine (Lantus(*)) 60 units SUBCUT BEDTIME [facility] Insulin Human Lispro (Humalog*) 0 units SUBCUT AC [facility] PRN Reason: Protocol Last Admin: 11/14/16 13:40 Dose: 4 units Insulin Human Lispro (Humalog*) 0 units SUBCUT ACHS [facility] PRN Reason: Protocol Last Admin: 11/14/16 12:26 Dose: Not Given Melatonin (Melatonin (Nf)) 3 mg PO BEDTIME PRN; Protocol PRN Reason: Sleep Metoprolol Succinate (Toprol Xl Tab*) 25 mg PO DAILY [facility] Last Admin: 11/14/16 08:54 Dose: 25 mg #Allergies Adhesive Tape #Data Laboratory Results - last 24 hr 11/13/16 11/13/16 11/13/16 21:54 21:54 21:54 WBC 16.4 H RBC 4.19 Hgb 12.1 L Hct 37 L MCV 89 MCH 29 MCHC 33 RDW 14 Plt Count 224 MPV 7 L Neut % (Auto) 89.1 H Lymph % (Auto) 4.4 L Harris % (Auto) 4.5 Eos % (Auto) 1.3 Baso % (Auto) 0.7 Absolute Neuts (auto) 14.6 H Absolute Lymphs (auto) 0.7 L Absolute Monos (auto) 0.7 Absolute Eos (auto) 0.2 Absolute Basos (auto) 0.1 Absolute Nucleated RBC 0.01 Nucleated RBC % 0.1 D-Dimer, Quantitative Sodium 134 Potassium 4.2 Chloride 101 Carbon Dioxide 24 Anion Gap 9 BUN 22 Creatinine 1.27 H Est GFR ( Amer) 71.1 Est GFR (Non-Af Amer) 55.3 BUN/Creatinine Ratio 17.3 Glucose 189 H POC Glucose (mg/dL) Hemoglobin A1c Lactic Acid 1.0 Calcium 9.3 Total Bilirubin 0.60 AST 18 ALT 21 Alkaline Phosphatase 69 C-React Prot High Sens Total Protein 7.4 Albumin 3.6 Globulin 3.8 Albumin/Globulin Ratio 0.9 L 11/13/16 11/13/16 11/14/16 21:54 21:54 05:10 WBC RBC Hgb Hct MCV MCH MCHC RDW Plt Count MPV Neut % (Auto) Lymph % (Auto) Harris % (Auto) Eos % (Auto) Baso % (Auto) Absolute Neuts (auto) Absolute Lymphs (auto) Absolute Monos (auto) Absolute Eos (auto) Absolute Basos (auto) Absolute Nucleated RBC Nucleated RBC % D-Dimer, Quantitative 218 Sodium 135 Potassium 3.9 Chloride 105 Carbon Dioxide 23 Anion Gap 7 BUN 22 Creatinine 1.10 Est GFR ( Amer) 83.9 Est GFR (Non-Af Amer) 65.3 BUN/Creatinine Ratio 20.0 Glucose 154 H POC Glucose (mg/dL) Hemoglobin A1c 7.6 H Lactic Acid Calcium 8.4 L Total Bilirubin AST ALT Alkaline Phosphatase C-React Prot High Sens Total Protein Albumin Globulin Albumin/Globulin Ratio 11/14/16 11/14/16 11/14/16 05:10 07:28 08:42 WBC 16.4 H RBC 3.71 L Hgb 10.9 L Hct 33 L MCV 89 MCH 29 MCHC 33 RDW 14 Plt Count 197 MPV 7 L Neut % (Auto) 84.6 H Lymph % (Auto) 8.0 L Harris % (Auto) 5.5 Eos % (Auto) 0.8 Baso % (Auto) 1.1 Absolute Neuts (auto) 13.9 H Absolute Lymphs (auto) 1.3 Absolute Monos (auto) 0.9 H Absolute Eos (auto) 0.1 Absolute Basos (auto) 0.2 Absolute Nucleated RBC 0 Nucleated RBC % 0 D-Dimer, Quantitative Sodium Potassium Chloride Carbon Dioxide Anion Gap BUN Creatinine Est GFR ( Amer) Est GFR (Non-Af Amer) BUN/Creatinine Ratio Glucose POC Glucose (mg/dL) 148 H Hemoglobin A1c Lactic Acid Calcium Total Bilirubin AST ALT Alkaline Phosphatase C-React Prot High Sens 105.24 Total Protein Albumin Globulin Albumin/Globulin Ratio 11/14/16 11:50 WBC RBC Hgb Hct MCV MCH MCHC RDW Plt Count MPV Neut % (Auto) Lymph % (Auto) Harris % (Auto) Eos % (Auto) Baso % (Auto) Absolute Neuts (auto) Absolute Lymphs (auto) Absolute Monos (auto) Absolute Eos (auto) Absolute Basos (auto) Absolute Nucleated RBC Nucleated RBC % D-Dimer, Quantitative Sodium Potassium Chloride Carbon Dioxide Anion Gap BUN Creatinine Est GFR ( Amer) Est GFR (Non-Af Amer) BUN/Creatinine Ratio Glucose POC Glucose (mg/dL) 118 H Hemoglobin A1c Lactic Acid Calcium Total Bilirubin AST ALT Alkaline Phosphatase C-React Prot High Sens Total Protein Albumin Globulin Albumin/Globulin Ratio 11/04/16 CT: Diffuse interlobular septal thickening, patchy densities, multiple pulm nodules 11/09/16: BAL from RML : Benign bronchial cells/inflammation, no e/o malignancy 11/13/16 CXR: Interstitial bibasilar airspace disease Micro: Neg bcx, strep ag, legionella, rsv Bronchial washing cultures negative for gram stain, fungal including PCP, AFB Path: 11/08/16 Lung transbronchial biopsy neg #Assessment: 76 year old gentleman with DM2, HTN, HL, BPH, Gout, recurrent pneumonias (admitted twice over past 2 weeks, last discharged on 11/11 treated with Zosyn) who presents with fevers, worsening shortness of breath and hypoxia without significant changes on CXR, significant uptrend in leukocytosis, lung biopsy path is still pending but preliminary report concerning for CHECKER DUMP GROUNDS, O2 sats improving and weaning off of supplemental O2 while on Zosyn #Recurrent PNA -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 Schroeder Please do not hesitate to reach out with questions Thank you for this consult Ginny Sawyer PGY-2, Infectious Disease/[facility] <Alexandre DAVALOS,Fuad Serna - Last Filed: 11/14/16 16:29> Infectious Disease Note SOAP: Interviewed and examined by me, seen and discussed with Dr Sawyer, I agree with her full note above. 1. Recurrent hypoxia, fever, leukocytosis; improved again on antibiotics and fluids. Bronch was negative for PCP, bacterial culture. Continue same antibiotics, recheck cultures, await pathology results from lung biposy. ? Incompletely treated bacterial pneumonia vs hypersensitivity reaction vs inflammatory Discussed with Dr Clinton
[2016-11-14] MEDS: Insulin GLARGINE(*) 1 UNITS UNIT SUBCUT SCH (20:44)
[2016-11-15] MEDS: NS 0.9% 1000 ML* 1,000 ML IV SCH ×2 (03:16→20:44)
[2016-11-15] MEDS: Piperac/Tazob 3.375 gm in NS* 3.375 GM/100 ML BAG IVPB SCH ×2 (05:40→14:25)
[2016-11-15] MEDS: Heparin VIAL(*) 5000 UNITS/ML VIAL (FIVE THOUSAND) SUBCUT SCH ×3 (05:41→21:54)
[2016-11-15] MEDS: Insulin LISPRO* 1 UNITS UNIT SUBCUT SCH ×7 (08:03→20:44)
[2016-11-15] MEDS: Docusate CAP* 100 MG PO SCH ×2 (09:29→20:45)
[2016-11-15] MEDS: Aspirin EC Low Dose* 81 MG TAB.EC PO SCH (09:29)
[2016-11-15] MEDS: guaiFENesin ER TAB 600 MG PO SCH ×2 (09:29→19:44)
[2016-11-15] MEDS: Atorvastatin* 40 MG TAB PO SCH (09:29)
[2016-11-15] MEDS: Metoprolol Succinate XL TAB* 25 MG PO SCH (09:29)
[2016-11-15] MEDS: PTO:Canagliflozin (NF) 100 MG TAB PO SCH (09:52)
[2016-11-15 13:58] LABS: Rheumatoid Factor <15 IU/mL (<15)
[2016-11-15 16:32] LABS: Aspergillus IgG Ab 24.8 mg/L (<=102)
--- NOTE | 2016-11-15 16:43 | PN ---
Progress Note - Progress Note Note: Pulm consult f/u note 11/15/16. Pt seen and examined at bedside. Reports feeling sofiya no cough or SOB, remains afebrile Active Medications Generic Name Dose Route Start Last Admin Trade Name Freq PRN Reason Stop Dose Admin Acetaminophen 650 mg 11/14/16 00:05 11/14/16 03:37 Tylenol Tab* PO 650 mg Q6H PRN Administration FEVER/PAIN Albuterol 2.5 mg 11/14/16 00:05 Ventolin 2.5 Mg/3 Ml Neb.Cadence* INH Q2H PRN SOB/WHEEZING Aspirin 81 mg 11/14/16 09:00 11/15/16 09:29 Aspirin Ec Low Dose* PO 81 mg DAILY [facility] Administration Atorvastatin Calcium 40 mg 11/14/16 09:00 11/15/16 09:29 Lipitor* PO 40 mg QAM [facility] Administration Canagliflozin 100 mg 11/15/16 09:00 11/15/16 09:52 Invokana (Nf) PO 100 mg QAM [facility] Administration Docusate Sodium 200 mg 11/14/16 09:00 11/15/16 09:29 Colace Cap* PO 200 mg BID [facility] Administration Guaifenesin 1,200 mg 11/14/16 09:00 11/15/16 09:29 Mucinex* PO 1,200 mg BID [facility] Administration Heparin Sodium (Porcine) 5,000 units 11/15/16 06:00 11/15/16 14:25 Heparin Vial(*) SUBCUT 5,000 units Q8HR [facility] Administration Sodium Chloride 1,000 mls @ 125 mls/hr 11/14/16 00:30 11/15/16 03:16 Ns 0.9% 1000 Ml* IV 125 mls/hr PER RATE [facility] Administration Piperacillin Sod/Tazobactam Sod 3.375 gm in 100 mls @ 25 mls/hr 11/14/16 06: 00 11/15/16 14:25 Zosyn 3.375 Gm In Ns Premix* IVPB 25 mls/hr Q8H [facility] Administration Insulin Glargine 60 units 11/14/16 21:00 11/14/16 20:44 Lantus(*) SUBCUT 60 units BEDTIME [facility] Administration Insulin Human Lispro 0 units 11/14/16 07:30 11/15/16 13:02 Humalog* SUBCUT 7 units AC [facility] Administration Protocol Insulin Human Lispro 0 units 11/14/16 07:30 11/15/16 13:03 Humalog* SUBCUT 2 units ACHS [facility] Administration Protocol Melatonin 3 mg 11/14/16 00:05 Melatonin (Nf) PO BEDTIME PRN Sleep Protocol Metoprolol Succinate 25 mg 11/14/16 09:00 11/15/16 09:29 Toprol Xl Tab* PO 25 mg DAILY [facility] Administration Vital Signs Temp Pulse Resp BP Pulse Ox 98.0 F 87 18 139/56 93 11/15/16 07:42 11/15/16 09:20 11/15/16 09:20 11/15/16 07:42 11/15/16 09:20 Gen: Elderly male sitting in chair, NAD HEENT: No Scleral Icterus, Mucous Membranes Moist Respiratory: Symmetrical Chest Expansion and Respiratory Effort, Clear to Auscultation Cardiovascular: NL Sounds; No Murmurs; No JVD, RRR, No Edema Abdominal: BS+; No Tenderness; No Distention Extremities: No Clubbing, Cyanosis Skin: No Rash or Ulcers, No Nodules or Sclerosis Neurological: Alert and Oriented x 3, no focal defecits Laboratory Results - last 24 hr 11/14/16 11/14/16 11/14/16 05:10 08:42 16:39 POC Glucose (mg/dL) 127 H Angiotensin Convert Enz 17 Rheumatoid Factor <15 Proteinase 3 (PR3) < 0.2 Myeloperoxidase Ab < 0.2 11/14/16 11/15/16 11/15/16 20:47 08:01 12:00 POC Glucose (mg/dL) 129 H 125 H 185 H Angiotensin Convert Enz Rheumatoid Factor Proteinase 3 (PR3) Myeloperoxidase Ab Pt is a 76 yo M with recurrent admissions for fever, chills, hypoxia and elevated WBC count with improvement with abx and recurrence S/p TBBX and BAL last visit, biopsy results suggestive of LAUNDRY SORTER Slides were sent to [place] for 2 nd opinion CTD w/u negative to date Cx negative to date Given no secondary cause identified either from history or serological tests, would have to treat as LAUNDRY SORTER 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
--- NOTE | 2016-11-15 18:27 | PN ---
Subjective Date of Service: 11/15/16 Interval History: Pt is feeling well. He denies any SOB. He still has not done much walking. No significant cough. Objective Active Medications: Acetaminophen (Tylenol Tab*) 650 mg PO Q6H PRN PRN Reason: FEVER/PAIN Last Admin: 11/14/16 03:37 Dose: 650 mg Albuterol (Ventolin 2.5 Mg/3 Ml Neb.Cadence*) 2.5 mg INH Q2H PRN PRN Reason: SOB/WHEEZING Aspirin (Aspirin Ec Low Dose*) 81 mg PO DAILY [facility] Last Admin: 11/15/16 09:29 Dose: 81 mg Atorvastatin Calcium (Lipitor*) 40 mg PO QAM [facility] Last Admin: 11/15/16 09:29 Dose: 40 mg Canagliflozin (Invokana (Nf)) 100 mg PO QAM [facility] Last Admin: 11/15/16 09:52 Dose: 100 mg Docusate Sodium (Colace Cap*) 200 mg PO BID [facility] Last Admin: 11/15/16 09:29 Dose: 200 mg Guaifenesin (Mucinex*) 1,200 mg PO BID [facility] Last Admin: 11/15/16 09:29 Dose: 1,200 mg Heparin Sodium (Porcine) (Heparin Vial(*)) 5,000 units SUBCUT Q8HR [facility] Last Admin: 11/15/16 14:25 Dose: 5,000 units Sodium Chloride (Ns 0.9% 1000 Ml*) 1,000 mls @ 125 mls/hr IV PER RATE [facility] Last Admin: 11/15/16 03:16 Dose: 125 mls/hr Piperacillin Sod/Tazobactam Sod (Zosyn 3.375 Gm In Ns Premix*) 3.375 gm in 100 mls @ 25 mls/hr IVPB Q8H [facility] Last Admin: 11/15/16 14:25 Dose: 25 mls/hr Insulin Glargine (Lantus(*)) 60 units SUBCUT BEDTIME [facility] Last Admin: 11/14/16 20:44 Dose: 60 units Insulin Human Lispro (Humalog*) 0 units SUBCUT AC [facility] PRN Reason: Protocol Last Admin: 11/15/16 18:14 Dose: 5 units Insulin Human Lispro (Humalog*) 0 units SUBCUT ACHS [facility] PRN Reason: Protocol Last Admin: 11/15/16 17:02 Dose: Not Given Melatonin (Melatonin (Nf)) 3 mg PO BEDTIME PRN; Protocol PRN Reason: Sleep Metoprolol Succinate (Toprol Xl Tab*) 25 mg PO DAILY [facility] Last Admin: 11/15/16 09:29 Dose: 25 mg Prednisone (Deltasone Tab*) 40 mg PO DAILY [facility] Vital Signs 11/14/16 11/14/16 11/14/16 20:00 21:47 23:47 Temperature 99.2 F 99.1 F Pulse Rate 77 74 Respiratory 17 16 22 Rate Blood Pressure 122/40 113/39 (mmHg) O2 Sat by Pulse 97 96 Oximetry 11/15/16 11/15/16 11/15/16 03:39 04:55 07:42 Temperature 98.6 F 98.0 F Pulse Rate 72 76 Respiratory 20 16 Rate Blood Pressure 104/32 116/50 139/56 (mmHg) O2 Sat by Pulse 96 96 Oximetry 11/15/16 11/15/16 11/15/16 08:00 09:20 11:42 Temperature 98.0 F Pulse Rate 87 78 Respiratory 16 18 16 Rate Blood Pressure 131/56 (mmHg) O2 Sat by Pulse 93 97 Oximetry 11/15/16 15:56 Temperature 98.8 F Pulse Rate 74 Respiratory 16 Rate Blood Pressure 136/51 (mmHg) O2 Sat by Pulse 97 Oximetry Oxygen Devices in Use Now: None Appearance: Elderly male sitting in a chair, NAD Eyes: No Scleral Icterus Ears/Nose/Mouth/Throat: Mucous Membranes Moist Respiratory: Symmetrical Chest Expansion and Respiratory Effort, Clear to Auscultation - with bibasilar crackles Cardiovascular: NL Sounds; No Murmurs; No JVD, RRR, No Edema Abdominal: NL Sounds; No Tenderness; No Distention Extremities: No Clubbing, Cyanosis Skin: No Rash or Ulcers, No Nodules or Sclerosis Neurological: Alert and Oriented x 3 Result Diagrams: 11/14/16 05:10 11/14/16 05:10 Assess/Plan/Problems-Billing Mr Rainey is a 76 yo M who has now been admitted for the third time this month for fever, chills, hypoxia and elevated WBC count of unclear cause. - Patient Problems (1) Pneumonia Current Visit: Yes Status: Acute Code(s): J18.9 - PNEUMONIA, UNSPECIFIED ORGANISM SNOMED Code(s): 429022496 Comment: Dr. Barksdale spoke with the pathology lab yesterday afternoon. 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 Today she recommends starting prednisone 40mg daily. He will need to be on this for 4-6 weeks and then start to taper. He should follow up with Dr. Barksdale in about 1month. Will monitor overnight and likely home tomorrow. Stop zosyn. (2) VIRGIE (acute kidney injury) Current Visit: Yes Status: Acute Code(s): N17.9 - ACUTE KIDNEY FAILURE, UNSPECIFIED SNOMED Code(s): 04637771 Comment: Repeat BMP tomorrow. (3) HTN (hypertension) Current Visit: Yes Status: Chronic Code(s): I10 - ESSENTIAL (PRIMARY) HYPERTENSION SNOMED Code(s): 19519475 Comment: BP is under good control. Continue current medication regimen. Resume all home meds on d/c. (4) Diabetes Current Visit: Yes Status: Chronic Code(s): E11.9 - TYPE 2 DIABETES MELLITUS WITHOUT COMPLICATIONS SNOMED Code(s): 34083169 Comment: Sugars have been under fair control. Continue invokana and lantus. Will need to monitor the sugars closely on the prednisone. (5) HLD (hyperlipidemia) Current Visit: Yes Status: Chronic Code(s): E78.5 - HYPERLIPIDEMIA, UNSPECIFIED SNOMED Code(s): 46613341 Comment: Continue atorvastatin. (6) DVT prophylaxis Current Visit: Yes Status: Acute Code(s): TVE5032 - SNOMED Code(s): 585608209 Comment: SQ heparin (7) Full code status Current Visit: Yes Status: Acute Code(s): Z78.9 - OTHER SPECIFIED HEALTH STATUS SNOMED Code(s): 261062054 Status and Disposition: likely d/c home tomorrow.
[2016-11-15] MEDS: predniSONE TAB* 20 MG PO SCH (19:44)
[2016-11-15] MEDS: Insulin GLARGINE(*) 1 UNITS UNIT SUBCUT SCH (20:44)
[2016-11-15 23:07] LABS: Aspergillus (Galactomannan) Ag <0.500 index (<0.5)
[2016-11-16] MEDS: Heparin VIAL(*) 5000 UNITS/ML VIAL (FIVE THOUSAND) SUBCUT SCH ×2 (05:24→13:45)
[2016-11-16] MEDS: NS 0.9% 1000 ML* 1,000 ML IV SCH (05:24)
[2016-11-16 05:58] LABS: Hematocrit 35 % (42-52); Hemoglobin 11.5 g/dl (14.0-18.0); Mean Corpuscular HGB Conc 33 g/dl (31-36); Mean Corpuscular Hemoglobin 29 pg (27-31); Mean Corpuscular Volume 90 fL (80-94); Mean Platelet Volume 8 um3 (7.4-10.4); Red Blood Count 3.92 10^6/ul (4.0-5.4); Red Cell Distribution Width 14 % (10.5-15); White Blood Count 9.6 10^3/ul (3.5-10.8)
[2016-11-16 06:09] LABS: BUN/Creatinine Ratio 18.4 (8-20); Calcium 9.2 mg/dL (8.6-10.3); EGFR African American 90.5 (>60); EGFR Non-African American 70.4 (>60); Potassium 4.9 mmol/L (3.5-5.0)
[2016-11-16 07:37] VITALS: BP 118/59
[2016-11-16] MEDS: PTO:Canagliflozin (NF) 100 MG TAB PO SCH (09:43)
[2016-11-16] MEDS: predniSONE TAB* 20 MG PO SCH (09:44)
[2016-11-16] MEDS: Docusate CAP* 100 MG PO SCH (09:44)
[2016-11-16] MEDS: Insulin LISPRO* 1 UNITS UNIT SUBCUT SCH ×4 (09:45→13:43)
[2016-11-16] MEDS: guaiFENesin ER TAB 600 MG PO SCH (09:45)
[2016-11-16] MEDS: Atorvastatin* 40 MG TAB PO SCH (09:45)
[2016-11-16] MEDS: Aspirin EC Low Dose* 81 MG TAB.EC PO SCH (09:45)
[2016-11-16] MEDS: Metoprolol Succinate XL TAB* 25 MG PO SCH (09:45)
--- NOTE | 2016-11-16 11:03 | PN ---
Subjective Date of Service: 11/16/16 Interval History: Pt is feeling well. He has no SOB. No significant cough. He has been up and walking without any SOB or difficulty. Objective Active Medications: Acetaminophen (Tylenol Tab*) 650 mg PO Q6H PRN PRN Reason: FEVER/PAIN Last Admin: 11/14/16 03:37 Dose: 650 mg Albuterol (Ventolin 2.5 Mg/3 Ml Neb.Cadence*) 2.5 mg INH Q2H PRN PRN Reason: SOB/WHEEZING Aspirin (Aspirin Ec Low Dose*) 81 mg PO DAILY [facility] Last Admin: 11/16/16 09:45 Dose: 81 mg Atorvastatin Calcium (Lipitor*) 40 mg PO QAM [facility] Last Admin: 11/16/16 09:45 Dose: 40 mg Canagliflozin (Invokana (Nf)) 100 mg PO QAM [facility] Last Admin: 11/16/16 09:43 Dose: 100 mg Docusate Sodium (Colace Cap*) 200 mg PO BID [facility] Last Admin: 11/16/16 09:44 Dose: 200 mg Guaifenesin (Mucinex*) 1,200 mg PO BID [facility] Last Admin: 11/16/16 09:45 Dose: 1,200 mg Heparin Sodium (Porcine) (Heparin Vial(*)) 5,000 units SUBCUT Q8HR [facility] Last Admin: 11/16/16 05:24 Dose: 5,000 units Sodium Chloride (Ns 0.9% 1000 Ml*) 1,000 mls @ 125 mls/hr IV PER RATE [facility] Last Admin: 11/16/16 05:24 Dose: 125 mls/hr Insulin Glargine (Lantus(*)) 60 units SUBCUT BEDTIME [facility] Last Admin: 11/15/16 20:44 Dose: 60 units Insulin Human Lispro (Humalog*) 0 units SUBCUT AC [facility] PRN Reason: Protocol Last Admin: 11/16/16 09:45 Dose: 7 units Insulin Human Lispro (Humalog*) 0 units SUBCUT ACHS [facility] PRN Reason: Protocol Last Admin: 11/16/16 09:50 Dose: 2 units Melatonin (Melatonin (Nf)) 3 mg PO BEDTIME PRN; Protocol PRN Reason: Sleep Metoprolol Succinate (Toprol Xl Tab*) 25 mg PO DAILY [facility] Last Admin: 11/16/16 09:45 Dose: 25 mg Prednisone (Deltasone Tab*) 40 mg PO DAILY [facility] Last Admin: 11/16/16 09:44 Dose: 40 mg Vital Signs 11/15/16 11/15/16 11/15/16 11:42 15:56 19:20 Temperature 98.0 F 98.8 F 98.8 F Pulse Rate 78 74 79 Respiratory 16 16 16 Rate Blood Pressure 131/56 136/51 128/53 (mmHg) O2 Sat by Pulse 97 97 98 Oximetry 11/15/16 11/15/16 11/15/16 20:00 20:30 20:35 Temperature Pulse Rate Respiratory 16 Rate Blood Pressure (mmHg) O2 Sat by Pulse 86 92 Oximetry 11/15/16 11/15/16 11/16/16 20:45 23:20 04:03 Temperature 98.4 F 97.9 F Pulse Rate 78 66 Respiratory 16 16 Rate Blood Pressure 142/61 129/55 (mmHg) O2 Sat by Pulse 94 96 98 Oximetry 11/16/16 07:11 Temperature 97.8 F Pulse Rate 75 Respiratory 18 Rate Blood Pressure 118/59 (mmHg) O2 Sat by Pulse 96 Oximetry Oxygen Devices in Use Now: None Appearance: Elderly male sitting on the edge of the bed, NAD Eyes: No Scleral Icterus Ears/Nose/Mouth/Throat: Mucous Membranes Moist Respiratory: Symmetrical Chest Expansion and Respiratory Effort, Clear to Auscultation - few RLL crackles Cardiovascular: NL Sounds; No Murmurs; No JVD, RRR, No Edema Abdominal: NL Sounds; No Tenderness; No Distention Extremities: No Clubbing, Cyanosis Skin: No Rash or Ulcers, No Nodules or Sclerosis Neurological: Alert and Oriented x 3 Result Diagrams: 11/16/16 05:11/16/16 05:17 Assess/Plan/Problems-Billing Mr Rainey is a 76 yo M who has now been admitted for the third time this month for fever, chills, hypoxia and elevated WBC count of unclear cause. - Patient Problems (1) Pneumonia Current Visit: Yes Status: Acute Code(s): J18.9 - PNEUMONIA, UNSPECIFIED ORGANISM SNOMED Code(s): 131592019 Comment: The patient's likely diagnosis is cryptogenic organizing pneumonia. I have started the patient on prednisone 40mg daily per Dr. Barksdale's recommendations. He will monitor his blood sugars closely at home and discuss adjusting his lantus dose if needed with his PCP. He will follow up with Dr. Barksdale in about 1 week. While I do not believe the patient had an infection pneumonia on admission he did have acute hypoxic respiratory failure with his initial O2 saturations being in the 80's. He has since been weaned off O2. (2) VIRGIE (acute kidney injury) Current Visit: Yes Status: Acute Code(s): N17.9 - ACUTE KIDNEY FAILURE, UNSPECIFIED SNOMED Code(s): 79293658 Comment: Resolved. (3) HTN (hypertension) Current Visit: Yes Status: Chronic Code(s): I10 - ESSENTIAL (PRIMARY) HYPERTENSION SNOMED Code(s): 76307431 Comment: BP is under good control. Continue current medication regimen. Resume all home meds on d/c. (4) Diabetes Current Visit: Yes Status: Chronic Code(s): E11.9 - TYPE 2 DIABETES MELLITUS WITHOUT COMPLICATIONS SNOMED Code(s): 10178298 Comment: Sugars have been under fair control. Resume all home medications. (5) HLD (hyperlipidemia) Current Visit: Yes Status: Chronic Code(s): E78.5 - HYPERLIPIDEMIA, UNSPECIFIED SNOMED Code(s): 95784385 Comment: Continue atorvastatin. (6) DVT prophylaxis Current Visit: Yes Status: Acute Code(s): JBO5518 - SNOMED Code(s): 147333048 Comment: SQ heparin (7) Full code status Current Visit: Yes Status: Acute Code(s): Z78.9 - OTHER SPECIFIED HEALTH STATUS SNOMED Code(s): 953587766 Status and Disposition: d/c home
--- NOTE | 2016-11-17 09:23 | DS ---
DISCHARGE SUMMARY: DATE OF ADMISSION: 11/13/16 DATE OF DISCHARGE: 11/16/16 PRIMARY CARE PROVIDER: Zia Green MD POUNCER MACHINE: Niecy Barksdale MD PRINCIPAL DIAGNOSES: 1. 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 2. Acute hypoxic respiratory failure - resolved. SECONDARY DIAGNOSES: 1. Type 2 diabetes. 2. Hypertension. 3. Hyperlipidemia. 4. Benign prostatic hyperplasia. 5. Gout. DISCHARGE MEDICATIONS: 1. Prednisone 40 mg p.o. daily. 2. Lispro 15 unit subcutaneous at dinner. 3. Lipitor 40 mg p.o. daily. 4. Aspirin 81 mg p.o. daily. 5. Metformin ER 500 mg p.o. daily. 6. Irbesartan 300 mg p.o. daily. 7. Lantus 60 units subcutaneous at bedtime. 8. Invokana 100 mg p.o. daily. 9. Multivitamin 1 tab p.o. daily. 10. Metoprolol XL 25 mg p.o. daily. HOSPITAL COURSE: Mr. Rainey is a 76-year-old male who presented to the emergency room on 11/13/16 with complaints of fever, chills, and sweats. The patient began to fall ill in late September. He has had the same symptoms occur over and over. The patient was initially seen in the emergency room in late September and discharged home. He then re-presented and was admitted from 11/01/16 to 11/02/16 and treated with initially IV antibiotics, subsequently changed to oral cephalosporin and azithromycin to complete a 7-day course of therapy. The patient re-presented on 11/04/16 and was admitted for 7 days to receive IV antibiotic therapy for what was felt to be a recurrent pneumonia. The patient returned to the emergency room on 11/13/16 again with fevers, chills, and sweats. EMS was contacted and his O2 saturation was found to be in the high 80s upon arrival. The patient was again admitted to the hospital for evaluation of his pulmonary status. During the prior hospitalization, the patient did undergo bronchoscopy. The results of the pathology from the transbronchial biopsy was pending during the initial part of this hospitalization. The patient was started again on Zosyn as he had done well on this on the prior hospitalization. He, shortly after admission resolved his fever and began to feel quite well. The patient's pathology report ultimately came back as positive for a minute focus of organizing pneumonia. Dr. Barksdael followed the patient again in consultation as did Dr. Schroeder and felt that this likely represented cryptogenic organizing pneumonia. The decision was made to discontinue the antibiotics as it was felt that he did not have an infectious pneumonia and he was begun on prednisone 40 mg p.o. daily. The patient carries a history of diabetes and despite being started on prednisone the night prior to discharge, had fair blood sugar control. He will need to monitor his blood sugars very closely as I do suspect that they will become markedly elevated with the initiation of prednisone. The patient has been instructed to check his blood sugars twice daily, record these numbers, and ask his primary care provider to review them to adjust his diabetic regimen. The patient did not require any oxygen at rest; however, with ambulation, the patient does drop his O2 saturation to 88% while on room air. The patient was set up for supplemental oxygen at 2 L per minute. The patient will follow up with Dr. Barksdale in approximately 1 month, at which time she will likely begin to taper prednisone down. On the day of discharge, the patient was awake, alert, and oriented; sitting on the edge of the bed; in no acute distress. Cardiac exam revealed a normal S1, S2. Regular rate rhythm. No murmurs. He had no lower extremity edema. The patient's pulmonary exam revealed a few right lower lobe crackles. Otherwise, his lungs were clear. His abdomen is soft, nontender, and nondistended. Bowel sounds were present. He again was oriented x3 and felt to be stable for discharge home today. FOLLOWUP CONCERNS: The patient is being discharged home today, 11/16/16. He is to follow up with Dr. Green in the next 4 to [address] Barksdale in approximately 1 month. ACTIVITY LEVEL: As tolerated. DIET: Diabetic. CONDITION ON DISCHARGE: Stable. TIME SPENT: Forty minutes was spent discharging this patient. CC: Dr. Green* [id number]/[facility] #: [id number] MTDD
== END 2016-11-16 14:00 | disposition home or self-care (01) | DRG 196 ==
LOC: ED 21:10 → MED 23:23
PROVIDERS: ADMIT Hospitalist; ATTEND Hospitalist
DX: J84.116 Cryptogenic organizing pneumonia (principal); J96.01 Acute respiratory failure with hypoxia; N17.9 Acute kidney failure, unspecified; E11.9 Type 2 diabetes mellitus without complications; I10 Essential (primary) hypertension; R91.8 Other nonspecific abnormal finding of lung field; N40.0 Benign prostatic hyperplasia without lower urinary tract symptoms; M10.9 Gout, unspecified; E78.5 Hyperlipidemia, unspecified; H26.9 Unspecified cataract; Z82.49 Family history of ischemic heart disease and other diseases of the circulatory system; Z83.3 Family history of diabetes mellitus; Z87.891 Personal history of nicotine dependence; Z98.42 Cataract extraction status, left eye; Z98.41 Cataract extraction status, right eye; Z80.42 Family history of malignant neoplasm of prostate; Z91.048 Other nonmedicinal substance allergy status; Z87.01 Personal history of pneumonia (recurrent); Z87.442 Personal history of urinary calculi; Z85.828 Personal history of other malignant neoplasm of skin; Z79.52 Long term (current) use of systemic steroids; Z79.4 Long term (current) use of insulin; Z79.82 Long term (current) use of aspirin
CPT/HCPCS: 36415; 71020; 80048; 80053; 82164; 83036; 83516; 83605; 85025; 85379; 86003; 86038; 86141; 86431; 87040; 87305; 93005; A9270-GY; J1644; J2001; J2543; J7512

== ENCOUNTER 2017-06-26 16:11 | Emergency (ER) | payer MEDICARE ==
[2017-06-26 19:12] LABS: ABS Basophils 0.1 10^3/ul (0-0.2); ABS Eosinophils 0.2 10^3/ul (0-0.6); ABS Lymphocytes 1.8 10^3/ul (1.0-4.8); ABS Monocytes 0.5 10^3/ul (0-0.8); ABS Neutrophils 4.2 10^3/ul (1.5-7.7); ABS Nucleated RBC 0.04 10^3/ul; Hematocrit 42 % (42-52); Hemoglobin 14.3 g/dl (14.0-18.0); Lymphocyte % 26.8 % (25-47); Mean Corpuscular HGB Conc 34 g/dl (31-36); Mean Corpuscular Hemoglobin 30 pg (27-31); Mean Corpuscular Volume 87 fL (80-94); Mean Platelet Volume 7 um3 (7.4-10.4); Nucleated Red Blood Cells % 0.6; Platelet Count 153 10^3/ul (150-450); Red Blood Count 4.79 10^6/ul (4.0-5.4); Red Cell Distribution Width 15 % (10.5-15); White Blood Count 6.8 10^3/ul (3.5-10.8)
--- NOTE | 2017-06-26 19:12 | RAD ---
INDICATION: Right-sided back pain. COMPARISON: Correlation is made with a prior CT of the chest from November 04, 2016. TECHNIQUE: A CT scan of the abdomen and pelvis was performed without intravenous or oral contrast. Contiguous axial sections were obtained from the lung bases through the symphysis pubis. Images were reconstructed in the coronal and sagittal planes. FINDINGS: There is a small nodule present posteriorly at the right lung base measuring 5 mm in size which is unchanged from the prior CT of the chest. There is mild prominence of the interstitial markings in both lower lobes which has improved. No pleural effusion is present. The liver and spleen are normal in size without significant focal abnormality on this noncontrast study. There is mild increased density in the dependent portion of the gallbladder suspicious for gallstones stones or sludge. No gallbladder wall thickening or pericholecystic fluid is present. The pancreas appears to be within normal limits. The adrenal glands appear within normal limits. There is bilateral perinephric stranding. There is a 5 mm calculus in the lower pole of the left kidney. No hydronephrosis is seen. No ureteral or bladder calculi are noted. The prostate gland is enlarged measuring 5.7 cm in transverse dimension. The aorta is normal in caliber. There is moderate calcific plaque present. No significant enlarged retroperitoneal lymph nodes are seen. There is a small hiatal hernia. The stomach, small and large bowel appear nondistended. The appendix is not visualized. There is mild descending and sigmoid diverticulosis without evidence for diverticulitis. No free intraperitoneal air or fluid is seen. No significant focal osseous abnormality is seen. There is mild to moderate diffuse degenerative disc disease throughout the lumbar spine. There is suggestion of mild spinal canal narrowing at the L2-L3 and L3-L4 levels. IMPRESSION: 1. SMALL RIGHT LOWER LOBE PULMONARY NODULE. RECOMMEND A FOLLOW-UP NONCONTRAST CT OF THE CHEST IN ONE YEAR'S TIME. 2. NONOBSTRUCTING LEFT RENAL CALCULUS. 3. PROBABLE CHOLELITHIASIS. THIS COULD BE FURTHER EVALUATED WITH A RIGHT UPPER QUADRANT ULTRASOUND. 4. IF THE PATIENT'S BACK PAIN CONTINUES RECOMMEND AN MRI OF THE LUMBAR SPINE.
[2017-06-26 19:31] LABS: EGFR Non-African American 84.2 (>60)
[2017-06-26] MEDS ORDERED: Lidocaine PATCH 5%* 1 PATCH TRANSDERM ONE (19:45)
[2017-06-26] MEDS ORDERED: Ketorolac INJ* 30 MG/ML 1 ML VIAL IM ONE (19:46)
--- NOTE | 2017-06-26 20:36 | ED ---
Back Pain - HPI Summary HPI Summary: 77M presents with right sided back pain for a week. He denies any injury. He denies any loss of bowel or bladder. He was seen by his primary and prescribed flexeril which has been taking with minimal relief. He states today the pain became so intense he could not get out of his cart so he has to call 911. He denies any pain or numbness or tingling into legs. He denies any fever. He denies any saddle anaesthesia. He took some ibuprofen for pain. He is diabetic. He has a history of kidney stones but states that this feels different. He denies any dysuria or hematuria. He denies any frequency or urgency. - History of Current Complaint Chief Complaint: EDBackInjuryDustyin Stated Complaint: LOWER BACK PAIN Time Seen by Provider: 06/26/17 18:11 Pain Intensity: 9 - Allergies/Home Medications Allergies/Adverse Reactions: Allergies Allergy/AdvReac Type Severity Reaction Status Date / Time Adhesive Tape Allergy Rash Verified 05/01/17 08:05 PMH/Surg Hx/FS Hx/Imm Hx Endocrine/Hematology History: Reports: Hx Diabetes - TYPE 2 Cardiovascular History: Reports: Hx Hypertension, Other Cardiovascular Problems/ Disorders - hyperlipidemia Respiratory History: Reports: Other Respiratory Problems/Disorders - pneumonia x3 recent [employer] diagnosis- "cryptogenic organizing pneumonia" History: Reports: Hx Benign Prostatic Hyperplasia, Hx Kidney Stones - followed by dr ortiz semi-annually, Other Problems/Disorders - bph Musculoskeletal History: Reports: Hx Back Problems, Other Musculoskeletal History - gout Sensory History: Reports: Hx Cataracts - BILATERAL, Hx Contacts or Glasses - glasses Denies: Hx Hearing Aid Opthamlomology History: Reports: Hx Cataracts - BILATERAL, Hx Contacts or Glasses - glasses - Cancer History Cancer Type, 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 [facility] [place] [facility] [place]. right cataract [place] with [place]OL [place] [facility] [place]x Anesthesia Reactions: No Infectious Disease History: No Infectious Disease History: Denies: Traveled Outside the US in Last 30 Days - Family History Known Family History: Positive: Cardiac Disease, Hypertension, Diabetes - Social History Alcohol Use: None Hx Substance Use: No Substance Use Type: Reports: None Smoking Status (MU): Former Smoker Type: Cigarettes Amount Used/How Often: 2 PPD 40 yrs Length of Time of Smoking/Using Tobacco: 25+ YEAR Have You Smoked in the Last Year: No Review of Systems Negative: Fever Negative: Chest Pain Negative: Shortness Of Breath Negative: Vomiting, Nausea Negative: flank pain Positive: Myalgia - back pain right side All Other Systems Reviewed And Are Negative: Yes Physical Exam Triage Information Reviewed: Yes Vital Signs On Initial Exam: Initial Vitals Temp Pulse Resp BP Pulse Ox 98 F 84 17 157/78 97 06/26/17 16:12 06/26/17 16:12 06/26/17 16:12 06/26/17 16:12 06/26/17 16:12 Vital Signs Reviewed: Yes Appearance: Positive: Well-Appearing Skin: Positive: Warm, Dry Head/Face: Positive: Normal Head/Face Inspection Eyes: Positive: Normal, Conjunctiva Clear Respiratory/Lung Sounds: Positive: Clear to Auscultation, Breath Sounds Present Cardiovascular: Positive: Normal, RRR Abdomen Description: Positive: Nontender, Soft. Negative: CVA Tenderness (R), CVA Tenderness (L) Bowel Sounds: Positive: Present Musculoskeletal: Positive: Strength/ROM Intact - back, Other - tenderness over right side of back, neg SLR, sensation grossly intact, good pulses Neurological: Positive: Normal, Normal Gait Psychiatric: Positive: Normal Diagnostics - Vital Signs Vital Signs Temp Pulse Resp BP Pulse Ox 06/26/17 16:12 98 F 84 17 157/78 97 - Laboratory Lab Results: Lab Results 06/26/17 06/26/17 Range/Units 19:01 19:01 WBC 6.8 (3.5-10.8) 10^3/ul RBC 4.79 (4.0-5.4) 10^6/ul Hgb 14.3 (14.0-18.0) g/dl Hct 42 (42-52) % MCV 87 (80-94) fL MCH 30 (27-31) pg MCHC 34 (31-36) g/dl RDW 15 (10.5-15) % Plt Count 153 (150-450) 10^3/ul MPV 7 L (7.4-10.4) um3 Neut % (Auto) 61.4 (38-83) % Lymph % (Auto) 26.8 (25-47) % [place] % (Auto) 7.6 (1-9) % Eos % (Auto) 3.0 (0-6) % Baso % (Auto) 1.2 (0-2) % Absolute Neuts (auto) 4.2 (1.5-7.7) 10^3/ul Absolute Lymphs (auto) 1.8 (1.0-4.8) 10^3/ul Absolute Monos (auto) 0.5 (0-0.8) 10^3/ul Absolute Eos (auto) 0.2 (0-0.6) 10^3/ul Absolute Basos (auto) 0.1 (0-0.2) 10^3/ul Absolute Nucleated RBC 0.04 10^3/ul Nucleated RBC % 0.6 Sodium 137 (133-145) mmol/L Potassium 3.7 (3.5-5.0) mmol/L Chloride 106 (101-111) mmol/L Carbon Dioxide 26 (22-32) mmol/L Anion Gap 5 (2-11) mmol/L BUN 18 (6-24) mg/dL Creatinine 0.88 (0.67-1.17) mg/dL Est GFR ( Amer) 108.3 (>60) Est GFR (Non-Af Amer) 84.2 (>60) BUN/Creatinine Ratio 20.5 H (8-20) Glucose 224 H (70-100) mg/dL Calcium 9.0 (8.6-10.3) mg/dL Total Bilirubin 0.50 (0.2-1.0) mg/dL AST 23 (13-39) U/L ALT 27 (7-52) U/L Alkaline Phosphatase 84 (34-104) U/L Total Protein 6.6 (6.4-8.9) g/dL Albumin 3.8 (3.2-5.2) g/dL Globulin 2.8 (2-4) g/dL Albumin/Globulin Ratio 1.4 (1-3) Lipase 29 (11.0-82.0) U/L Result Diagrams: 06/26/17 19:01 06/26/17 19:01 Lab Statement: Any lab studies that have been ordered have been reviewed, and results considered in the medical decision making process. - CT abd CT Interpretation: No Acute Changes - IMPRESSION: 1. SMALL RIGHT LOWER LOBE PULMONARY NODULE. RECOMMEND A FOLLOW-UP NONCONTRAST CT OF THE CHEST IN ONE YEAR' S TIME. 2. NONOBSTRUCTING LEFT RENAL CALCULUS. 3. PROBABLE CHOLELITHIASIS. THIS COULD BE FURTHER EVALUATED WITH A RIGHT UPPER QUADRANT ULTRASOUND. 4. IF THE PATIENT'S BACK PAIN CONTINUES RECOMMEND AN MRI OF THE LUMBAR SPINE. CT Interpretation Completed By: Radiologist Back Pain Course/Dx - Course Course Of Treatment: 77M presents with right sided back pain for a week. He denies any injury. He denies any loss of bowel or bladder. He was seen by his primary and prescribed flexeril which has been taking with minimal relief. He states today the pain became so intense he could not get out of his cart so he has to call 911. He denies any pain or numbness or tingling into legs. He denies any fever. He denies any saddle anaesthesia. He took some ibuprofen for pain. He is diabetic. He has a history of kidney stones but states that this feels different. He denies any dysuria or hematuria. He denies any frequency or urgency. on exam tenderness right side lower back, neg CVA tenderness, neg SLR, neurovascular intact. CT renal stone. gave lidocaine patch and patient states is painfree and able to ambulate freely around ED. will discharge with script for lidocaine patch. patient understand and agrees with plan. - Diagnoses Differential Diagnosis/HQI/PQRI: Positive: Herniated Disc, Renal Colic Provider Diagnoses: Back pain Discharge - Discharge Plan Condition: Good Disposition: HOME Prescriptions: Lidocaine PATCH 5%* [Lidoderm 5% Patch*] 1 patch TRANSDERM DAILY #14 patch Patient Education Materials: Back Pain (ED) Referrals: Zia Green MD [Primary Care Provider] - Additional Instructions: Take muscle relaxers as prescribed Apply lidocaine patches to area for up to 12 hours in one 24 hour period Use Tylenol for pain every 6 hours ice/heat area, move as much as possible Follow up with primary within 5 days Return to ED if develop any new or worsening symptoms
[2017-06-26 20:48] VITALS: BP 00/00
== END 2017-06-26 20:47 | disposition home or self-care (01) ==
LOC: ED 16:11
DX: M54.5 Low back pain (principal); E11.9 Type 2 diabetes mellitus without complications; N20.0 Calculus of kidney; Z87.442 Personal history of urinary calculi; I10 Essential (primary) hypertension; E78.5 Hyperlipidemia, unspecified; N40.0 Benign prostatic hyperplasia without lower urinary tract symptoms; Z87.891 Personal history of nicotine dependence
CPT/HCPCS: 36415; 74176; 80053; 83690; 85025; 96372; 99282; A9270-GY; J1885

== ENCOUNTER 2018-06-12 07:01 | Observation (INO) | payer MEDICARE ==
[2018-06-12] MEDS ORDERED: NS 0.9% 1000 ML* 1,000 ML IV ONE ×2 (07:31→09:45)
[2018-06-12] MEDS ORDERED: cefTRIAXone(*) 1 GM in NS 0.9% 50 ML* 50 ML IVPB ONE (07:39)
[2018-06-12] MEDS ORDERED: Acetaminophen TAB* 325 MG PO ONE (07:39)
--- NOTE | 2018-06-12 07:55 | ED ---
Shortness of Breath - HPI Summary HPI Summary: A 78 y/o male presents to [facility] with a chief complaint of cough since 06/10/18. The patient also reports fever and SOB. He denies CP, N/V/D and constipation. He rates his pain as 0/10. 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 He states that his PNA was treated with steroids. He denies any travels outside of [place]. - History of Current Complaint Chief Complaint: EDShortnessOfBreath Time Seen by Provider: 06/12/18 07:29 Hx Obtained From: Patient, Family/Jet Pilot - Onset/Duration: Sudden Onset, Lasting Days, Still Present Timing: Constant Current Severity: Mild Aggrevating Factors: Nothing Alleviating Factors: Nothing Associated Signs & Symptoms: Cough (Productive), Fever - Allergy/Home Medications Allergies/Adverse Reactions: Allergies Allergy/AdvReac Type Severity Reaction Status Date / Time Adhesive Tape Allergy Rash Verified 05/01/17 08:05 Home Medications: Home Medications Dulaglutide (NF) [Trulicity (NF)] 0.75 mg SUBCUT DAILY 06/12/18 [History Confirmed 06/12/18] PMH/Surg Hx/FS Hx/Imm Hx Endocrine/Hematology History: Reports: Hx Diabetes - TYPE 2 Cardiovascular History: Reports: Hx Hypertension, Other Cardiovascular Problems/ Disorders - hyperlipidemia Respiratory History: Reports: Other Respiratory Problems/Disorders - pneumonia x3 recent [employer] diagnosis- "cryptogenic organizing pneumonia" History: Reports: Hx Benign Prostatic Hyperplasia, Hx Kidney Stones - followed by dr ortiz semi-annually, Other Problems/Disorders - bph Musculoskeletal History: Reports: Hx Back Problems, Other Musculoskeletal History - gout Sensory History: Reports: Hx Cataracts - BILATERAL, Hx Contacts or Glasses - glasses Denies: Hx Hearing Aid Opthamlomology History: Reports: Hx Cataracts - BILATERAL, Hx Contacts or Glasses - glasses - Cancer History Cancer Type, 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 left ulnar nerve decompression 2008 [facility] [place]. ESWL and stent insertion 2008 [facility] [place]. right retina repair 2016, [place]. right cataract extraction with IOL 2015 [facility] [place] Hx Anesthesia Reactions: No Infectious Disease History: No Infectious Disease History: Denies: Traveled Outside the US in Last 30 Days - Family History Known Family History: Positive: Cardiac Disease, Hypertension, Diabetes - Social History Alcohol Use: None Hx Substance Use: No Substance Use Type: Reports: None Smoking Status (MU): Former Smoker Type: Cigarettes Amount Used/How Often: 2 PPD 40 yrs Length of Time of Smoking/Using Tobacco: 25+ YEAR Have You Smoked in the Last Year: No Review of Systems Positive: Fever Negative: Chest Pain Positive: Shortness Of Breath, Cough Gastrointestinal: Negative - constipation Negative: Vomiting, Diarrhea, Nausea All Other Systems Reviewed And Are Negative: Yes Physical Exam - Summary Physical Exam Summary: VITAL SIGNS: Reviewed. GENERAL: Patient is a well-developed and nourished MALE who is lying comfortable in the stretcher. Patient is not in any acute respiratory distress. HEAD AND FACE: No signs of trauma. No ecchymosis, hematomas or skull depressions. No sinus tenderness. EYES: PERRLA, EOMI x 2, No injected conjunctiva, no nystagmus. EARS: Hearing grossly intact. Ear canals and tympanic membranes are within normal limits. MOUTH: Oropharynx within normal limits. NECK: Supple, trachea is midline, no adenopathy, no JVD, no carotid bruit, no c- spine tenderness, neck with full ROM. CHEST: Symmetric, no tenderness at palpation LUNGS: Bilateral crackles at both bases. Hypoxic. CVS: Regular rate and rhythm, S1 and S2 present, no murmurs or gallops appreciated. ABDOMEN: Soft, non-tender. No signs of distention. No rebound no guarding, and no masses palpated. Bowel sounds are normal. EXTREMITIES: FROM in all major joints, no edema, no cyanosis or clubbing. NEURO: Alert and oriented x 3. No acute neurological deficits. Speech is normal and follows commands. SKIN: Dry and warm Triage Information Reviewed: Yes Vital Signs On Initial Exam: Initial Vitals Temp Pulse Resp BP Pulse Ox 100.2 F 103 18 145/67 95 06/12/18 07:05 06/12/18 07:05 06/12/18 07:05 06/12/18 07:05 06/12/18 07:05 Vital Signs Reviewed: Yes Diagnostics - Vital Signs Vital Signs Temp Pulse Resp BP Pulse Ox 06/12/18 07:05 100.2 F 103 18 145/67 95 - Laboratory Result Diagrams: 06/12/18 07:46 06/12/18 07:46 Lab Statement: Any lab studies that have been ordered have been reviewed, and results considered in the medical decision making process. - Radiology CXR Radiology Interpretation Completed By: Radiologist Summary of Radiographic Findings: No active cardiopulmonary disease. ED physician has reviewed this imaging report. - EKG 07:49 Cardiac Rate: Tachycardia - 100 bpm EKG Rhythm: Sinus Tachycardia Summary of EKG Findings: no ST elevation, similar to previous EKG done on . Course/Dx - Course Assessment/Plan: A 78 y/o male presents to [facility] with a chief complaint of cough since 06/10/18. The patient also reports fever and SOB. He denies CP, N/V/ D and constipation. He rates his pain as 0/10. 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 He states that his PNA was treated with steroids. He denies any travels outside of [place]. Blood work without any significant abnormality except for WBCs of 13.2, hemoglobin and hematocrit of 12 .9 and HTC 38, sodium 134, BUN is 26, glucose 152, CRP of 69.3. Chest x-ray impression: No acute pathology. In the ED course the patient is febrile, tachycardic, for which the patient was given IV fluids, Rocephin and Tylenol. CURB 65 is 2-3 thus is recommended inpatient admission. I discussed my physical exam, findings and test results with Dr. Lobo from the hospitalist services and he agrees to admit patient to his services. Patient is hemodynamically stable alert and oriented x 3. - Diagnoses Differential Diagnosis/HQI/PQRI: Positive: Asthma, Bronchitis, CHF, COPD Exacerbation, MO, Pneumonia Provider Diagnoses: Pneumonia - Physician Notifications Discussed Care of Patient With: [place] Lobo Time Discussed With Above Provider: 09:35 Instructed by Provider To: Admit As Inpatient Discharge - Sign-Out/Discharge Documenting (check all that apply): Patient Departure - admit - Discharge Plan Condition: Fair Disposition: ADMITTED TO [facility] - Billing Disposition and Condition Condition: FAIR Disposition: Admitted to [facility] - Attestation Statements Document Initiated by Scribe: Yes Documenting Scribe: Mark Haro Provider For Whom Scribe is Documenting (Include Credential): Feliciano Sanchez MD Scribe Attestation: I, Mark Haro, scribed for Feliciano Sanchez MD on 06/13/18 at 1025. Scribe Documentation Reviewed: Yes Provider Attestation: The documentation as recorded by the scribe, Mark Haro accurately reflects the service I personally performed and the decisions made by me, Feliciano Sanchez MD Status of Scribe Document: Viewed Attestations User Type: Provider with Scribe Provider Attestation: The documentation recorded by the scribe accurately reflects the service I personally performed and the decisions made by me.
[2018-06-12 08:03] LABS: ABS Basophils 0.1 10^3/ul (0-0.2); ABS Eosinophils 0.3 10^3/ul (0-0.6); ABS Monocytes 1.1 10^3/ul (0-0.8); ABS Neutrophils 10.8 10^3/ul (1.5-7.7); ABS Nucleated RBC 0 10^3/ul; Eosinophil % 2.1 %; Hematocrit 38 % (42-52); Hemoglobin 12.9 g/dl (14.0-18.0); Lymphocyte % 7.2 %; Mean Corpuscular HGB Conc 34 g/dl (31-36); Mean Corpuscular Hemoglobin 32 pg (27-31); Mean Corpuscular Volume 92 fL (80-94); Mean Platelet Volume 7.5 fL (7.4-10.4); Nucleated Red Blood Cells % 0; Platelet Count 212 10^3/ul (150-450); Red Blood Count 4.06 10^6/ul (4.00-5.40); Red Cell Distribution Width 14 % (10.5-15); White Blood Count 13.2 10^3/ul (3.5-10.8)
[2018-06-12 08:27] LABS: EGFR Non-African American 61.1 (>60)
[2018-06-12] MEDS ORDERED: Azithromycin IV* 500 MG ADVAN VIAL/BAG IVPB ONE (09:30)
[2018-06-12] MEDS ORDERED: Indomethacin CAP* 25 MG CAP PO PRN (09:49)
[2018-06-12] MEDS ORDERED: Acetaminophen TAB* 325 MG PO PRN (09:51)
[2018-06-12] MEDS ORDERED: Melatonin 3 MG TAB PO PRN (09:52)
[2018-06-12] MEDS ORDERED: Docusate CAP* 100 MG PO PRN (09:52)
[2018-06-12] MEDS ORDERED: Dextrose 50% Syringe 50 ML* 25 GM/50 ML SYRINGE IV PUSH PRN (09:53)
--- NOTE | 2018-06-12 12:25 | HP ---
CC: Dr. Zia Green; Dr. Niecy Barksdale * ADMISSION HISTORY AND PHYSICAL: DATE OF ADMISSION: 06/12/18 PRIMARY CARE PROVIDER: Dr. Zia Green. MANAGER MUTUAL FUND: Dr. Niecy Barksdale. ATTENDING FOR THIS ADMISSION: Dr. [place] Lobo.* (DICTATED BY MADELINE MENDIETA NP) CHIEF COMPLAINT: Fever and shortness of breath x2 to 3 days. HISTORY OF PRESENT ILLNESS: This is a 78-year-old male patient, who reports a history of 2 to 3 days of progressive shortness of breath, unproductive cough, fatigue, and fever. The patient states he was in his usual state of health. He does see Dr. 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 The patient states he was treated for cryptogenic organizing pneumonia last year in October. I have reviewed those records. At that time, the patient was not responding to antibiotics and had several admissions for shortness of breath and fever. Having bronchoscopy last year, he was diagnosed with INVESTMENT UNDERWRITER and treated with steroids. However, this presentation seems to be not similar to his complaints from last year. His chest x-ray is clear. He does have a mild fever and some leukocytosis; however , his shortness of breath per his report is persistent. For these reasons, we were asked to evaluate the patient for admission. PAST MEDICAL HISTORY: Significant for hypertension, diabetes mellitus type 2, hyperlipidemia, BPH, gout. PAST SURGICAL HISTORY: Significant for cataract excision, elbow surgery, and inguinal hernia repair. MEDICATIONS AT HOME: Include: 1. Trulicity 0.75 mg subcu daily. 2. Indomethacin 25 mg 3 times a day as needed. 3. Metformin 500 mg daily in the morning. 4. Avapro 300 mg p.o. daily. 5. Lantus 60 units subcu at bedtime. 6. Atorvastatin 40 mg in the morning. 7. Aspirin 81 mg daily. 8. Theragran multivitamin with minerals 1 tab p.o. daily. 9. Metoprolol succinate XL 25 mg each morning. ALLERGIES: No known drug allergies. SOCIAL HISTORY: The patient states he has a very remote history of smoking, quit 30 years ago. Denies any alcohol use and denies any illicit drug use. He is . His , Petra, is his healthcare proxy. He is a full code. REVIEW OF SYSTEMS: A 10-point review of systems is negative except as noted in the HPI above. PHYSICAL EXAMINATION GENERAL: Reveals a well-appearing, elderly male of his stated age. VITAL SIGNS: Currently, blood pressure 102/53, heart rate 87, respiratory rate 16, O2 saturation 96% on 2 L nasal cannula, temperature is currently 97.7, temperature upon arrival was 100.2. HEENT: The patient is atraumatic, normocephalic. PERRLA with nonicteric sclerae. Oral mucosa is moist. Tongue is midline. NECK: Supple, nontender. No JVD noted. No carotid bruits auscultated. No lymphadenopathy appreciated in the cervical region or in the supraclavicular region. RESPIRATORY: His lungs are clear bilaterally to auscultation with good air entry. No appreciable wheezes, rhonchi, or rales noted. CARDIAC: He has positive S1, S2. No murmurs, gallops, or rubs noted. Rate and rhythm are regular. He has +2 distal pulses palpable with no lower extremity edema noted. ABDOMEN: Soft, nontender, nondistended. Positive bowel sounds in all 4 quadrants. No organomegaly appreciated. MUSCULOSKELETAL: There is no clubbing, no cyanosis, and no edema. He has full range of motion. Ambulatory, steady gait. Gross motor and sensory are intact. NEUROLOGIC: He is grossly intact with gross sensation intact and no focal deficits. PSYCHIATRIC: He is A and O x3. Appropriate mood and affect. SKIN: Warm, dry, and intact. He does report that he had a wound on his back last week; however, inspection of his back reveals no cellulitic changes and no open wounds or rashes. DIAGNOSTIC STUDIES/LAB DATA: WBCs 13.2, RBCs 4.06, hemoglobin 12.9, hematocrit 38, platelets 212, neutrophils 10.8, monocytes 1.1, eosinophils 0.3. Sodium 134, potassium 4.4, chloride 102, CO2 22, BUN 26, creatinine 1.16, GFR is 61.1, glucose 152, lactic acid 0.7, calcium 9.1. Bilirubin 0.80, AST 26, ALT 24, alk phos 102. Troponin is negative at 0.01. CRP is 69.32. Total protein 7.2, albumin 3.9, globulin 3.3. Chest x-ray from today. Official read states no active cardiopulmonary disease. I have evaluated his chest x-ray and he does not appear to have any consolidation or any further pathology noted. EKG shows regular sinus rhythm, borderline tachycardia with a rate of [address] segment changes noted. IMPRESSION/PLAN: This is a 78-year-old male patient with a history of pulmonary disease, who presents with fever and shortness of breath, being admitted for same. 1. Fever and shortness of breath with accompanying leukocytosis. The patient is empirically being treated for pneumonia purely based on his history. He does have a mild leukocytosis; however, his chest x-ray is clear. Given his borderline fever, we cannot rule out viral illness as well. We will send him for a flu swab and check strep, legionella urine antigen. We will continue Tylenol as needed for fever. He has received 1 g of Rocephin. This will also be continued. I have consulted Dr. Niecy Barksdale of Pulmonology given the patient's history of cryptogenic organizing pneumonia last year. I will defer to her on initiation of steroids. At this point, the patient does not appear to be in any sort of respiratory distress, so we will look for further recommendations from Pulmonology at this time. He has also received a liter of fluids. He does appear to be a bit dry. We will continue IV fluids at maintenance. 2. For his hypertension, we will continue his metoprolol. His blood pressure is borderline low right now, may also be associated with low intravascular volume. Again, we will continue his IV fluids, hold his beta-josie if needed. We will continue his irbesartan 300 mg daily and his baby aspirin daily. Continue multivitamins as well. 3. For his hyperlipidemia, we will continue atorvastatin 40 mg daily. 4. For his diabetes mellitus type 2, we will hold his Trulicity. Continue metformin daily. Continue his Lantus and place him lispro sliding scale with consistent carbohydrate diet. 5. For his history of gout, we will continue his indomethacin as needed. 6. Fluids, electrolytes, and nutrition: Again, as above continue IV fluids at maintenance and consistent carbohydrate diet. 7. Code status is full. 8. DVT prophylaxis: His screening does place him at high risk for DVT. He will be placed on heparin 5000 units q.8 hours. 9. Disposition: The patient is admitted to inpatient status. The rest of the patient's course will be determined by further diagnostics, laboratories and any other input from other providers as warranted during this admission. TIME SPENT: Approximately 60 minutes interviewing the patient, discussing the case with ER physician and the attending on this case, Dr. South Lobo, who is in agreement with this plan of care. MADELINE MENDIETA, APPLICATION PROGRAMMER ANALYST [id number]/CPS #: [id number] RICKIE
[2018-06-12] MEDS: Insulin LISPRO* 1 UNITS UNIT SUBCUT SCH ×3 (12:51→20:01)
[2018-06-12] MEDS: Heparin VIAL(*) 5000 UNITS/ML VIAL (FIVE THOUSAND) SUBCUT SCH ×2 (15:04→21:51)
--- NOTE | 2018-06-12 19:05 | CONS ---
PULMONARY CONSULTATION REPORT: DATE OF CONSULT: 06/12/18 CONSULTATION REQUESTED BY: Delphine Mendenhall NP REASON FOR CONSULT: Evaluation of possible cryptogenic organizing pneumonia. HISTORY OF PRESENT ILLNESS: The patient is a 78-year-old male, known to me from prior inpatient and outpatient evaluation. The patient has a history of recurrent pneumonias in the past, underwent bronchoscopy and was diagnosed with cryptogenic organizing pneumonia. He responded very well to steroids with improvement in symptoms. He has been doing well for past few months. He started having fever and shortness of breath with dry cough over the past 2 to 3 days. The patient's symptoms were not improving and he got concerned about whether this could be cryptogenic organizing pneumonia and presented to the emergency room. The patient was febrile in the emergency room. The patient also was found to have elevated white count. Chest x-ray was performed in the emergency room, which was personally reviewed by me. It shows evidence of airspace opacity in the right base. He is admitted for management of pneumonia. He was initiated on Rocephin and Zithromax. He is not in any distress. The patient reports feeling better already since he received the antibiotics. PAST MEDICAL HISTORY: 1. Hypertension. 2. Diabetes. 3. Dyslipidemia. 4. BPH. 5. Gout. 6. Cryptogenic organizing pneumonia. PAST SURGICAL HISTORY: 1. Cataract extraction. 2. Elbow surgery. 3. Inguinal hernia repair. MEDICATIONS AT HOME: 1. Trulicity. 2. Indomethacin. 3. Metformin. 4. Avapro. 5. Lantus. 6. Atorvastatin. 7. Aspirin. 8. Theragran. 9. Metoprolol. ALLERGIES: No known drug allergies. SOCIAL HISTORY: Remote history of smoking, quit 30 years ago. No alcohol or drug abuse. REVIEW OF SYSTEMS: All 14 systems reviewed and as per HPI. PHYSICAL EXAM: The patient is in bed, in no apparent distress. Vital Signs: Temperature 97.8, pulse 78 beats per minute, respiratory rate 16 per minute, O2 sat 98% on room air, blood pressure 117/49. HEENT: Pupils equal, reactive to light. Mucous membranes moist. Lungs: Good air entry bilaterally. No wheeze or crackles. Cardiovascular: S1, S2 present. Regular. No murmurs, gallops, or rubs. DIAGNOSTIC STUDIES/LAB DATA: WBC count 13.2, hemoglobin 12.9, hematocrit 38, platelet count 212. Sodium 134, potassium 4.4, chloride 102, bicarb 22, BUN 26 , creatinine 1.16, lactic acid 0.7. CRP 69.32. Chest x-ray as described above in HPI. IMPRESSION AND RECOMMENDATIONS: 78-year-old male with history of cryptogenic organizing pneumonia, diabetes, admitted with fever, cough, shortness of breath and is being treated for pneumonia. I do not suspect it is cryptogenic organizing pneumonia at this time. Would continue treatment as community-acquired pneumonia. He is not in any distress. Will monitor in the hospital overnight. He can be discharged home on p.o. antibiotics if stable by tomorrow. Thank you for allowing me to participate in the care of your patient. Will follow up with you. [id number]/[facility] #: [id number] RICKIE
[2018-06-12] MEDS ORDERED: Insulin GLARGINE(*) 1 UNITS UNIT SUBCUT SCH (21:00)
[2018-06-13] MEDS: Heparin VIAL(*) 5000 UNITS/ML VIAL (FIVE THOUSAND) SUBCUT SCH (05:56)
[2018-06-13] MEDS ORDERED: metFORMIN* 500 MG TAB PO SCH (08:00)
[2018-06-13] MEDS ORDERED: cefTRIAXone(*) 1 GM in NS 0.9% 50 ML* 50 ML IVPB SCH (08:00)
[2018-06-13] MEDS: Insulin LISPRO* 1 UNITS UNIT SUBCUT SCH ×2 (08:44→12:49)
[2018-06-13] MEDS ORDERED: Atorvastatin* 40 MG TAB PO SCH (09:00)
[2018-06-13] MEDS ORDERED: Metoprolol Succinate XL TAB* 25 MG PO SCH (09:00)
[2018-06-13] MEDS ORDERED: Losartan TAB* 25 MG PO SCH (09:00)
[2018-06-13] MEDS ORDERED: Multivitamins/Minerals TAB PO SCH (09:00)
[2018-06-13] MEDS ORDERED: Aspirin EC TAB* 81 MG TAB.EC PO SCH (09:00)
--- NOTE | 2018-06-13 12:38 | PN ---
Progress Note - Progress Note Date of Service: 06/13/18 - Pulm f/u note Note: Pt seen and examined at bedside. Pt reports improvement in sx. No fever o/n Active Medications Generic Name Dose Route Start Last Admin Trade Name Freq PRN Reason Stop Dose Admin Acetaminophen 650 mg 06/12/18 09:51 Tylenol Tab* PO Q6H PRN fever/discomfort Aspirin 81 mg 06/13/18 09:00 06/13/18 09:47 Aspirin Ec Tab* PO 81 mg QAM MARCOS Administration Atorvastatin Calcium 40 mg 06/13/18 09:00 06/13/18 09:45 Lipitor* PO 40 mg QAM MARCOS Administration Dextrose 12.5 gm 06/12/18 09:53 D50w Syringe 50 Ml* IV PUSH .FOR FS < 60 - SS PRN FS < 60 Docusate Sodium 100 mg 06/12/18 09:52 Colace Cap* PO DAILY PRN CONSTIPATION Heparin Sodium (Porcine) 5,000 units 06/12/18 14:00 06/13/18 05:56 Heparin Vial(*) SUBCUT 5,000 units Q8HR MARCOS Administration Ceftriaxone Sodium 1 gm/ 50 mls @ 200 mls/hr 06/13/18 08:00 06/13/18 09:44 Sodium Chloride IVPB 200 mls/hr Q24H MARCOS Administration Indomethacin 25 mg 06/12/18 09:49 Indocin Cap* PO TID PRN GOUT Insulin Glargine 60 units 06/12/18 21:00 06/12/18 20:01 Lantus(*) SUBCUT 60 units BEDTIME MARCOS Administration Insulin Human Lispro 0 units 06/12/18 11:30 06/13/18 08:44 Humalog* SUBCUT Not Given ACHS [facility] Protocol Losartan Potassium 100 mg 06/13/18 09:00 06/13/18 09:48 Cozaar Tab* PO 100 mg QAM MARCOS Administration Melatonin 3 mg 06/12/18 09:52 Melatonin PO BEDTIME PRN INSOMNIA Metformin HCl 250 mg 06/13/18 08:00 06/13/18 09:46 Glucophage* PO 250 mg BID WITH MEALS MARCOS Administration Metoprolol Succinate 25 mg 06/13/18 09:00 06/13/18 09:45 Toprol Xl Tab* PO 25 mg QAM MARCOS Administration Multivitamins/Minerals 1 tab 06/13/18 09:00 06/13/18 09:47 Theragran/Minerals Tab* PO 1 tab QAM MARCOS Administration Vital Signs Temp Pulse Resp BP Pulse Ox 98.5 F 79 20 131/70 97 06/13/18 08:29 06/13/18 08:29 06/13/18 08:29 06/13/18 08:29 06/13/18 08:29 Laboratory Results - last 24 hr 06/12/18 06/12/18 06/12/18 15:54 16:51 19:41 POC Glucose (mg/dL) 159 H 239 H Influenza A (Rapid) Negative Influenza B (Rapid) Negative 06/13/18 06/13/18 07:28 11:44 POC Glucose (mg/dL) 100 140 H Influenza A (Rapid) Influenza B (Rapid) O/E: Pt in NAD HEENT: No JVD Lungs: Good a/e b/l CVS: S1, S2+ Abd: Soft, BS+ Ext: No edema Neuro: NO focal deficits I/R": 78 y o m a/w fever, cough, found to have infiltrate in Rt base Pt treated for CAP He has h/o BOOP/[employer] C/w Abx Will be d/c home today to complete 7 day course of abx Advised pt to call me if sx dont improve
[2018-06-13 13:11] VITALS: BP 135/57
--- NOTE | 2018-06-14 15:01 | DS ---
CC: Dr. Zia Green; Dr. Niecy Pillai * DISCHARGE SUMMARY: DATE OF ADMISSION: 06/12/18 DATE OF DISCHARGE: 06/13/18 PRIMARY CARE PROVIDER: Dr. Zia Green. DIRECTOR OF SPORTS PERFORMANCE: Dr. Niecy Barksdale. ATTENDING FOR THIS ADMISSION/ATTENDING FOR TODAY: Dr. [place]obo* (MADELINE MENDIETA NP) HOSPITAL COURSE: In short, this is a 78-year-old patient who reported 2 to 3 days of fever and shortness of breath with an unproductive cough and some fatigue. 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 The patient was concerned that he was getting pneumonia again, came to the emergency department for evaluation. In the ED, he was found to need a new O2 requirement. Chest x-ray did not reveal a pneumonia at this time. However, given his history, he was admitted and seen by Dr. Barksdale of Pulmonology. Upon evaluation by Dr. Barksdale, she did not feel that it was his cryptogenic organizing pneumonia again, so he did not require steroid treatment. He did respond well to initial antibiotic therapy. The patient has received ceftriaxone and azithromycin and some IV fluids. The patient responded well to these therapies. He was off O2 before he went to bed last night, was ambulatory, exhibited no shortness of breath, no fever. Does have a little bit of a cough, which is unproductive in nature but otherwise feeling well. The patient was medically optimized for discharge on 06/13/18. DISCHARGE DIAGNOSES: 1. Shortness of breath and cough, likely viral illness versus chronic obstructive pulmonary disease exacerbation. 2. History of cryptogenic organizing pneumonia. 3. History of hypertension, stable. 4. History of hyperlipidemia, stable. 5. History of diabetes mellitus type 2, currently stable. 6. History of gout, also stable. DISCHARGE MEDICATIONS: Include, 1. Trulicity 0.5 mg subcutaneous daily. 2. Indocin 25 mg p.o. t.i.d. as needed. 3. Metformin 500 mg daily in the morning. 4. Irbesartan 300 mg in the morning. 5. Lantus 60 units at bedtime. 6. Atorvastatin 40 mg in the morning. 7. Baby aspirin 81 mg daily. 8. Multivitamin 1 tablet p.o. daily. 9. Metoprolol succinate XL 25 mg p.o. daily. New medications: 1. Azithromycin 500 mg p.o. x4 days. 2. Tylenol 650 mg q.6 hours as needed. DISPOSITION: The patient was discharged to home in the care of his . FOLLOWUP: The patient was instructed to follow up with his primary care provider on an as needed basis and also to reach out to Dr. Barksdale of Pulmonology as needed. Dr. Barksdale is aware that the patient is leaving for [place] for the season. I instructed the patient to obtain primary care services while he is in [place] in the case the needed arises. REVIEW OF SYSTEMS: On the day of discharge, the patient denies any fever, fatigue or chills. No shortness of breath. No chest pain. No abdominal pain. No nausea, no vomiting, no diarrhea, no fevers or chills and no further constitutional complaints. PHYSICAL EXAMINATION: Vital signs today are blood pressure 135/57, heart rate 70, O2 saturation 96% on room air, temperature of 97.9. HEENT: The patient is atraumatic, normocephalic. PERRLA with nonicteric sclerae. Neck: Supple, nontender. No JVD noted and no carotid bruit auscultated. Cardiovascular: S1 , S2 present. No murmurs, gallops or rubs. Rate and rhythm are currently regular. Lungs: Clear bilaterally to auscultation with no wheezing, rhonchi or rales, slightly diminished at the bases with good air entry. Abdomen: Soft, nontender, nondistended. Positive bowel sounds in all four quadrants. : Deferred. Musculoskeletal: There is no clubbing, no cyanosis, no edema. He has +2 distal pulses palpable. Full range of motion. Gross motor and sensation are intact. Neurologic: Grossly intact with no focal deficits. Psychiatric: He is cooperative and appropriate. DIAGNOSTIC STUDIES/LAB DATA: WBC is 13.2, RBC is 4.06, hemoglobin 12.9, hematocrit 38, platelets 212. Sodium 134, potassium 4.4, chloride 102, BUN 26, creatinine 1.16, GFR 61.1, glucose 100, lactic acid 0.7, calcium 9.1. Total bilirubin 0.80, AST 26, ALT 24, alkaline phosphatase is 102. Troponin was negative at 0.01, CRP 69.32, total protein 7.2, albumin 3.9, globulin 3.3. Influenza rapid A and B are both negative. Chest x-ray dated 06/12/18 shows no active cardiopulmonary disease. Again, the patient was discharged in stable condition. All questions were answered. The patient stated his understanding of his discharge medications and followups. TIME SPENT: Approximately 35 minutes interfacing with the patient, planning discharge plan of care. MADELINE MENDIETA, BETTIE [id number]/[facility] #: [id number] RICKIE
== END 2018-06-13 13:55 | disposition home or self-care (01) ==
LOC: ED 07:01 → MEDTELE 09:44 → INTOOBSV 09:44
PROVIDERS: ADMIT Internal Medicine; ATTEND Internal Medicine
DX: R06.02 Shortness of breath (principal); R05 Cough; I10 Essential (primary) hypertension; E11.9 Type 2 diabetes mellitus without complications; E78.5 Hyperlipidemia, unspecified; Z79.82 Long term (current) use of aspirin; R50.9 Fever, unspecified; Z87.01 Personal history of pneumonia (recurrent); Z87.442 Personal history of urinary calculi; Z87.891 Personal history of nicotine dependence; R00.0 Tachycardia, unspecified
CPT/HCPCS: 36415; 71046; 80053; 83605; 84484; 85025; 86140; 87040; 87899; 93005; 96365; 96366; 96372; 99284; A9270-GY; G0378; J0456; J0696; J1644

== ENCOUNTER 2018-10-09 18:53 | Inpatient (IN) | payer MEDICARE ==
[2018-10-09] MEDS ORDERED: NS 0.9% 1000 ML** 1,000 ML IV.FLUID IV ONE (19:12)
[2018-10-09] MEDS ORDERED: Acetaminophen TAB* 325 MG PO ONE (19:15)
[2018-10-09] MEDS ORDERED: Piperacillin/Tazobac ADVAN(*) 3.375 GM in NS 0.9% 100 ML* 100 ML IVPB ONE (19:15)
[2018-10-09] MEDS ORDERED: Vancomycin(*) 1,000 MG in NS 0.9% 250 ML* 250 ML IVPB ONE (19:15)
--- NOTE | 2018-10-09 19:16 | ED ---
Sepsis HPI - HPI Summary HPI Summary: Pt is a 78 y/o male brought in by EMS who presents to the ED c/o SOB. A few days ago he began to have SOB, generalized weakness, and dry cough. 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 As per , the FA[employer] FO[employer] COOK was diagnosed via biopsy by Dr. Barksdale. states that pt fell today but denies any head injury. Pt had this seasons flu vaccine. Vital signs while in room: 117 bpm, O2 sat 93%, BP 161/72, temperature 102 degrees F. Pt is a former smoker. - History of Current Complaint Chief Complaint: EDShortnessOfBreath Time Seen by Provider: 10/09/18 18:55 Stated Complaint: SOB, WEAKNESS PER EMS Hx Obtained From: Patient, Family/[employer] - Onset/Duration: Started Days Ago - 2-3, Still Present Timing: Constant Current Severity: None Pain Intensity: 0 Pain Scale Used: 0-10 Numeric Aggravating Symptom(s): Nothing Alleviating Factor(s): Nothing Associated Signs & Symptoms: SOB, Other - fatigue, weakness - Additional Pertinent History Primary Care Physician: [id number] - Allergy/Home Medications Allergies/Adverse Reactions: Allergies Allergy/AdvReac Type Severity Reaction Status Date / Time Adhesive Tape Allergy Rash Verified 05/01/17 08:05 PMH/Surg Hx/FS Hx/Imm Hx Endocrine/Hematology History: Reports: Hx Diabetes - TYPE 2 Cardiovascular History: Reports: Hx Hypertension, Other Cardiovascular Problems/ Disorders - hyperlipidemia Respiratory History: Reports: Other Respiratory Problems/Disorders - pneumonia x3 recent FAST FOOD COOK diagnosis- "cryptogenic organizing pneumonia" History: Reports: Hx Benign Prostatic Hyperplasia, Hx Kidney Stones - followed by dr ortiz semi-annually, Other Problems/Disorders - bph Musculoskeletal History: Reports: Hx Back Problems, Hx Gout Sensory History: Reports: Hx Cataracts - BILATERAL, Hx Contacts or Glasses - glasses Denies: Hx Hearing Aid Opthamlomology History: Reports: Hx Cataracts - BILATERAL, Hx Contacts or Glasses - glasses - Cancer History Cancer Type, 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 [facility] [place] [facility] [place]. right [place] with [place]OL [place] [facility] [place] Anesthesia Reactions: No Infectious Disease History: No Infectious Disease History: Denies: Traveled Outside the [place] in Last 30 Days - Family History Known Family History: Positive: Cardiac Disease, Hypertension, Diabetes - Social History Alcohol Use: None Hx Substance Use: No Substance Use Type: Reports: None Hx Tobacco Use: Yes Smoking Status (MU): Former Smoker Type: Cigarettes Amount Used/How Often: 2 PPD 40 yrs Length of Time of Smoking/Using Tobacco: 25+ YEAR Have You Smoked in the Last Year: No Review of Systems Positive: Shortness Of Breath, Cough - dry Positive: Weakness - generalized All Other Systems Reviewed And Are Negative: Yes Physical Exam - Summary Physical Exam Summary: GENERAL: Patient is a well-developed and nourished M who is lying uncomfortable in the stretcher. Patient is not in any acute respiratory distress. HEAD AND FACE: Normocephalic EYES: PERRLA, EOMI x 2. EARS: Hearing grossly intact. MOUTH: Oropharynx within normal limits. NECK: Supple, trachea is midline, no adenopathy, no JVD, no carotid bruit. CHEST: Symmetric, no tenderness at palpation LUNGS: Clear to auscultation bilaterally. No wheezing or crackles. CVS: Tachycardic rate but regular rhythm, S1 and S2 present, no murmurs or gallops appreciated. ABDOMEN: Soft, non-tender. Bowel sounds are normal. No abdominal abnormal pulsations. EXTREMITIES: Full ROM in all major joints, no edema, no cyanosis or clubbing. NEURO: Alert and oriented x 3. No acute neurological deficits. Speech is normal and follows commands. SKIN: Dry and warm Triage Information Reviewed: Yes Vital Signs On Initial Exam: Initial Vitals Temp Pulse Resp BP Pulse Ox 102 F 118 28 167/75 94 10/09/18 18:53 10/09/18 18:53 10/09/18 18:53 10/09/18 18:53 10/09/18 18:53 Vital Signs Reviewed: Yes Diagnostics - Vital Signs Vital Signs Temp Pulse Resp BP Pulse Ox 10/09/18 18:53 102 F 118 28 167/75 94 - Laboratory Result Diagrams: 10/10/18 06:01 10/10/18 06:01 Lab Statement: Any lab studies that have been ordered have been reviewed, and results considered in the medical decision making process. - Radiology CXR Radiology Interpretation Completed By: ED Physician Summary of Radiographic Findings: Interstitial process. Pending official radiology report. Course/Dx - Course Course Of Treatment: Pt is a 78 y/o male brought in by EMS who presents to the ED c/o SOB, generalized weakness, and dry cough. A physical exam revealed the pt uncomfortable and tachycardic. A CXR revealed no obvious pneumonia. Pt will be admitted to Dr. Trujillo with final dx of sepsis. Discussed case with hospitalist. I discussed results with patient. The patient agrees with the plan. - Differential Dx/Clinical Impression Provider Diagnosis: Sepsis - Provider Notifications Discussed Care Of Patient With: Shira Trujillo Time Discussed With Above Provider: 21:04 Instructed by Provider To: Admit As Inpatient - Critical Care Time Critical Care Time: 30-74 min - CCT is exclusive of separately billable procedures. Discharge - Sign-Out/Discharge Documenting (check all that apply): Patient Departure - Admit Patient Received Moderate/Deep Sedation with Procedure: No - Discharge Plan Condition: Stable Disposition: ADMITTED TO [facility] - Billing Disposition and Condition Condition: STABLE Disposition: Admitted to [facility] - Attestation Statements Document Initiated by Scribe: Yes Documenting Scribe: Lula Martino Provider For Whom Scribe is Documenting (Include Credential): Geetha Aj MD Scribe Attestation: Lula Ceballos scribed for Geetha Aj MD on 10/10/18 at 1614. Scribe Documentation Reviewed: Yes Provider Attestation: The documentation as recorded by the scribLula collins accurately reflects the service I personally performed and the decisions made by , Geetha Aj MD Status of Scribe Document: Viewed
[2018-10-09] MEDS ORDERED: NS 0.9% 250 ML* 250 ML ONE ×2 (19:18→19:52)
[2018-10-09 19:39] LABS: ABS Basophils 0.1 10^3/ul (0-0.2); ABS Eosinophils 0.4 10^3/ul (0-0.6); ABS Lymphocytes 0.8 10^3/ul (1.0-4.8); ABS Monocytes 0.6 10^3/ul (0-0.8); ABS Nucleated RBC 0 10^3/ul; Eosinophil % 2.4 %; Hematocrit 39 % (36-46); Hemoglobin 13.3 g/dL (14.0-18.0); Lymphocyte % 4.5 %; Mean Corpuscular HGB Conc 34 g/dL (31-36); Mean Corpuscular Hemoglobin 31 pg (27-31); Mean Corpuscular Volume 90 fL (80-94); Mean Platelet Volume 6.8 fL (7.4-10.4); Nucleated Red Blood Cells % 0; Platelet Count 273 10^3/uL (150-450); Red Blood Count 4.33 10^6 /uL (4.18-5.48); Red Cell Distribution Width 14 % (10.5-15); White Blood Count 16.9 10^3/uL (3.5-10.8)
[2018-10-09] MEDS ORDERED: Vancomycin(*) 1,250 MG in NS 0.9% 250 ML* 250 ML IVPB ONE (19:40)
[2018-10-09 19:48] LABS: Activated Partial Thrombo Time 29.9 seconds (26.0-36.3); INR 1.02 (0.77-1.02)
[2018-10-09 19:56] LABS: Troponin I 0.01 ng/mL (<0.04)
[2018-10-09 19:57] LABS: Albumin/Globulin Ratio 1.1 (1-3); BUN/Creatinine Ratio 19.6 (8-20); C Reactive Protein 19.38 mg/L (<8.01); Calcium 9.8 mg/dL (8.6-10.3); EGFR African American 85.7 (>60); EGFR Non-African American 70.8 (>60); Globulin 3.7 g/dL (2-4); Potassium 4.6 mmol/L (3.5-5.0); Total Bilirubin 0.5 mg/dL (0.2-1.0); Total Protein 7.7 g/dL (6.4-8.9)
[2018-10-09 20:14] LABS: Urine Appearance Clear; Urine Bacteria 1+ (Absent); Urine Bilirubin Negative (Negative); Urine Blood Negative (Negative); Urine Color Yellow; Urine Glucose 1+(50 mg/dL) (Negative); Urine Ketones Negative (Negative); Urine Nitrite Negative (Negative); Urine Protein 2+(100 mg/dL) (Negative); Urine Red Blood Cell Trace(0-2/hpf) (Absent); Urine Specific Gravity 1.013 (1.010-1.030); Urine Urobilinogen Negative (Negative); Urine White Blood Cell Trace(0-5/hpf) (Absent)
[2018-10-09] MEDS ORDERED: Indomethacin CAP* 25 MG CAP PO PRN (22:55)
[2018-10-09] MEDS ORDERED: Acetaminophen TAB* 325 MG PO PRN (22:55)
[2018-10-09] MEDS ORDERED: Dextrose 50% Syringe 50 ML* 25 GM/50 ML SYRINGE IV PUSH PRN (23:49)
[2018-10-10] MEDS: Enoxaparin(*) 40 MG/0.4 ML SYR SUBCUT SCH ×2 (00:17→21:33)
--- NOTE | 2018-10-10 01:47 | HP ---
CC: Dr. Zia Green; Dr. Niecy Barksdale * HISTORY AND PHYSICAL: DATE OF ADMISSION: 10/09/18 PRIMARY CARE PROVIDER: Dr. Zia Green. ASSOCIATE PROFESSOR OF EDUCATION: Dr. Niecy Barksdale. ATTENDING PHYSICIAN: Shira Trujillo MD *(dictated by REAL Stevens). CHIEF COMPLAINT: Cough, fever, shortness of breath. HISTORY OF PRESENT ILLNESS: Mr. Rainey is a 78-year-old male with a past medical history that is significant for recurrent pneumonia including 1 bout of cryptogenic organizing pneumonia who presented to the ER today with complaints of cough, fever, and shortness of breath. 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 He was treated with multiple courses of antibiotics which did not help. Dr. 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 More recently for the past few days, the patient has felt malaise and fatigue and has had decreased energy. He notes a nonproductive cough with fever. He does complain of a very small amount of shortness of breath. He states that this is sudden onset approximately 2 days ago and that it was worse today. The patient denies wheeze and hemoptysis. He states that he has had approximately 10-pound weight loss in the last 3 weeks, although he states this was intentional. It is important to note that on 09/27/18, the patient drove from [place] to [place]. He states it took approximately two and half days and he drove approximately 10 hours per day. At this time, the patient denies chest pain, abdominal pain, nausea, vomiting, diarrhea, constipation. He has had no pain in the calves recently. He does note that his right foot appears to have a flare up of gout, which is slightly painful. He has started taking indomethacin today for this. In the ER, the patient received a full workup which included chest x-ray and labs. The patient was found to be septic in the ER and the provider ordered 2650 mL fluid bolus, vancomycin, piperacillin/tazobactam, and Tylenol. The hospitalist team was asked to evaluate the patient for admission. PAST MEDICAL HISTORY: 1. Diabetes mellitus type 2. 2. Hypertension. 3. Hyperlipidemia. 4. BPH. 5. Gout. 6. History of pneumonia x3 including cryptogenic organizing pneumonia. 7. History of nephrolithiasis. PAST SURGICAL HISTORY: 1. Umbilical hernia x2. 2. Left ulnar nerve decompression. 3. Lithotripsy with stent placement. 4. Right retina. 5. Right cataract. HOME MEDICATIONS: 1. Indomethacin 25 mg p.o. t.i.d. p.r.n. 2. Dulaglutide 0.75 mg subcu daily. 3. Atorvastatin 40 mg p.o. q.a.m. 4. Aspirin EC 81 mg p.o. q.a.m. 5. Acetaminophen 650 mg p.o. q.6 hours p.r.n. 6. Multivitamin/minerals 1 tab p.o. q.a.m. 7. Metoprolol succinate XL 25 mg p.o. q.a.m. 8. Metformin ER 500 mg p.o. q.a.m. 9. Irbesartan 300 mg p.o. q.a.m. 10. Insulin glargine 60 units subcu at bedtime. ALLERGIES: No known drug allergies. The patient is allergic to ADHESIVE TAPE. FAMILY HISTORY: Positive for cardiac disease, hypertension, diabetes, prostate cancer. Negative for CVA. SOCIAL HISTORY: The patient quit smoking approximately 30 years ago. He has a 30- pack-year history prior to that. He is a former light drinker, but no longer drinks alcohol. He lives with his . 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 In the event that he is unable to make his own medical decisions, he appoints his , Petra Rainey, phone number [phone], to make decisions on his behalf. REVIEW OF SYSTEMS: A 10-point review of systems was performed and all the pertinent positives and negatives are in the HPI. PHYSICAL EXAMINATION GENERAL: Mr. Rainey is a well-developed, well-nourished elderly white male who is sitting up in bed. He appears slightly diaphoretic. He is in no acute distress. VITAL SIGNS: Temperature 99.8 temporal, heart rate 84, respiratory rate 18, oxygen saturation 96% on 2 L, blood pressure 125/58. HEENT: Visual somers are grossly intact. The pupils are equally round and reactive to light. Extraocular movements are intact. Sclerae without icterus. Hearing is grossly intact. Oral mucous membranes are moist, there are no lesions. Pharynx is clear. NECK: Trachea midline. There is no lymphadenopathy. RESPIRATORY: Symmetrical chest expansion without use of accessory muscles. The left upper lung field has faint wheezing. The right lower lung field has faint crackles. There is no rhonchi. CARDIOVASCULAR: Regular rate and rhythm with S1, S2 present. No murmurs, rubs , or gallops. No JVD. ABDOMEN: Bowel sounds in all quadrants. The abdomen is soft and nontender to palpation. There is no hepatosplenomegaly. EXTREMITIES: Skin is warm and smooth bilaterally. There is no clubbing or cyanosis. There is no edema. The right dorsum of the foot has an erythematous mass that appears to be at the proximal end of the first metatarsal. It is erythematous, slightly swollen and mildly tender to palpation. Radial and pedal pulses are palpable. NEURO: The patient is awake. He is alert and oriented. Cranial nerves are grossly intact. He is able to move all of his extremities. DIAGNOSTIC STUDIES/LABORATORY DATA: Chest x-ray on 10/09/18 pending. WBC 16.9, RBC 4.33, HGB 13.3, HCT 39, platelet 273. Sodium 137, potassium 4.6, chloride 105, carbon dioxide 23, anion gap 9, BUN 20, creatinine 1.2. Lactic acid 1.9, 1.3. C-reactive protein 19.38. ASSESSMENT AND PLAN: Mr. Rainey is a 78-year-old male with a past medical history as described above who presented to the ER today with complaints of fever and cough. The patient will be admitted to observation for: 1. Sepsis. Upon arrival, the patient was febrile with tachycardia, tachypnea and leukocytosis. He was treated with normal saline boluses, vancomycin, Zosyn, and acetaminophen. He did not have a lactic acidosis. It is likely that this is due to some sort of pulmonary infection. The chest x-ray is pending at this point, but there does not appear to be any sort of consolidation, we will continue to await a reading. I would like to try a trial of ceftriaxone and azithromycin. If this is ineffective after 1 to 2 days, it may be necessary to explore a diagnosis of cryptogenic organizing pneumonia and potentially consult Dr. Barksdale. Another concern is that the patient has spent an extended period of time driving recently and he may have a pulmonary embolism. He describes his shortness of breath as very faint. He also has another more likely diagnosis, in that he may have a pulmonary infection with leukocytosis and elevated CRP and fever. 2. Diabetes mellitus. The patient's Lantus will be continued. His dose will be decreased from 60 to 40 as his eating habits will change in the hospital setting. He will be placed on lispro sliding scale. His Trulicity and metformin will be held. 3. Gout. The patient typically takes indomethacin 25 mg p.o. t.i.d. p.r.n. He has recently started this medication and will continue to take it here. 4. Hypertension. The patient will continue home medications of metoprolol and irbesartan. 5. Hyperlipidemia. Continue atorvastatin and aspirin. 6. FEN. The patient will be placed on a heart healthy diet. Fluids will be deferred at this time as he received just over 2.5 L bolus in the ER. 7. DVT prophylaxis. According to the DVT Risk Assessment, the patient scores a 4 which is high risk. He will be placed on Lovenox 40 q.24 hours. TIME SPENT: Approximately 60 minutes was spent on this admission, greater than half of that time was spent with the patient and his obtaining history, performing the physical, and reviewing the plan of care. The case was then reviewed with my attending Dr. Trujillo, who is in agreement with the plan of care. REAL GUZMAN [id number]/[facility] #: [id number] MTDNalini
[2018-10-10 03:49] LABS: Influenza A Molecular NEGATIVE (Negative); Influenza B Molecular NEGATIVE (Negative)
[2018-10-10 06:44] LABS: ABS Basophils 0 10^3/ul (0-0.2); ABS Eosinophils 0.3 10^3/ul (0-0.6); ABS Lymphocytes 1.5 10^3/ul (1.0-4.8); ABS Monocytes 0.7 10^3/ul (0-0.8); ABS Neutrophils 13.7 10^3/ul (1.5-7.7); ABS Nucleated RBC 0 10^3/ul; Eosinophil % 1.8 %; Hematocrit 35 % (36-46); Hemoglobin 11.5 g/dL (14.0-18.0); Lymphocyte % 9.3 %; Mean Corpuscular HGB Conc 34 g/dL (31-36); Mean Corpuscular Hemoglobin 30 pg (27-31); Mean Corpuscular Volume 91 fL (80-94); Mean Platelet Volume 7.1 fL (7.4-10.4); Nucleated Red Blood Cells % 0; Platelet Count 214 10^3/uL (150-450); Red Blood Count 3.81 10^6 /uL (4.18-5.48); Red Cell Distribution Width 14 % (10.5-15); White Blood Count 16.2 10^3/uL (3.5-10.8)
[2018-10-10 06:58] LABS: BUN/Creatinine Ratio 18.4 (8-20); Calcium 8.7 mg/dL (8.6-10.3); EGFR African American 89.7 (>60); EGFR Non-African American 74.2 (>60); Potassium 4.1 mmol/L (3.5-5.0)
[2018-10-10] MEDS: Insulin LISPRO* 1 UNITS UNIT SUBCUT SCH ×4 (08:33→21:34)
[2018-10-10] MEDS ORDERED: Iodixanol* (CONTRAST) 320 MG/ML 100 ML SDV IV ONE (08:51)
[2018-10-10] MEDS ORDERED: Azithromycin IV* 500 MG ADVAN VIAL/BAG IVPB SCH (09:00)
[2018-10-10] MEDS: Losartan TAB* 25 MG PO SCH (09:18)
[2018-10-10] MEDS: Atorvastatin* 40 MG TAB PO SCH (09:18)
[2018-10-10] MEDS: Metoprolol Succinate XL TAB* 25 MG PO SCH (09:19)
[2018-10-10] MEDS: Multivitamins/Minerals TAB PO SCH (09:19)
[2018-10-10] MEDS: Aspirin EC TAB* 81 MG TAB.EC PO SCH (09:19)
[2018-10-10] MEDS: cefTRIAXone(*) 1 GM in NS 0.9% 50 ML* 50 ML IVPB SCH (10:13)
[2018-10-10] MEDS: Azithromycin IV(*) 500 MG in NS 0.9% 250 ML* 250 ML IVPB SCH (11:14)
[2018-10-10] MEDS: methylPREDNISolone SOD 40 MG* 1 ML VIAL IV SCH ×2 (11:25→19:51)
--- NOTE | 2018-10-10 16:22 | PN ---
Subjective Date of Service: 10/10/18 Interval History: Seen today, no acute disease. awake, alert. CTA negative for PE. Seen by pulmonary. Tolerating antibiotics and steroid. Past Medical History: Unchanged from Admission Objective Active Medications: Acetaminophen (Tylenol Tab*) 650 mg PO Q6H PRN PRN Reason: fever/discomfort Aspirin (Aspirin Ec Tab*) 81 mg PO [facility] Last Admin: 10/10/18 09:19 Dose: 81 mg Atorvastatin Calcium (Lipitor*) 40 mg PO [facility] Last Admin: 10/10/18 09:18 Dose: 40 mg Dextrose (D50w Syringe 50 Ml*) 12.5 gm IV PUSH .FOR FS < 60 - SS PRN PRN Reason: FS < 60 Enoxaparin Sodium (Lovenox(*)) 40 mg SUBCUT Q24H [facility] Last Admin: 10/10/18 00:17 Dose: 40 mg Ceftriaxone Sodium 1 gm/ (Sodium Chloride) 50 mls @ 200 mls/hr IVPB Q24H [facility] Last Admin: 10/10/18 10:13 Dose: 200 mls/hr Azithromycin 500 mg/ Sodium (Chloride) 250 mls @ 250 mls/hr IVPB Q24H [facility] Last Admin: 10/10/18 11:14 Dose: 250 mls/hr Indomethacin (Indocin Cap*) 25 mg PO TID PRN PRN Reason: GOUT Insulin Glargine (Lantus(*)) 40 units SUBCUT BEDTIME [facility] Insulin Human Lispro (Humalog*) 0 units SUBCUT ACHS [facility]; Protocol Last Admin: 10/10/18 12:48 Dose: 2 units Losartan Potassium (Cozaar Tab*) 100 mg PO [facility] Last Admin: 10/10/18 09:18 Dose: 100 mg Methylprednisolone Sodium Succinate (Solu-Medrol 40 Mg) 40 mg IV Q8H [facility] Last Admin: 10/10/18 11:25 Dose: 40 mg Metoprolol Succinate (Toprol Xl Tab*) 25 mg PO [facility] Last Admin: 10/10/18 09:19 Dose: 25 mg Multivitamins/Minerals (Theragran/Minerals Tab*) 1 tab PO [facility] Last Admin: 10/10/18 09:19 Dose: 1 tab Vital Signs - 8 hr 10/10/18 10/10/18 10/10/18 11:15 13:49 14:00 Temperature 98.5 F 97.2 F Pulse Rate 84 78 Respiratory 18 19 Rate Blood Pressure 125/52 124/34 130/32 (mmHg) O2 Sat by Pulse 98 98 Oximetry Oxygen Devices in Use Now: Nasal Cannula Appearance: Awake alert. no distress Eyes: No Scleral Icterus, - - EOMI Ears/Nose/Mouth/Throat: NL Teeth, Lips, Gums, Mucous Membranes Moist Neck: NL Appearance and Movements; NL JVP, Trachea Midline Respiratory: Symmetrical Chest Expansion and Respiratory Effort Cardiovascular: NL Sounds; No Murmurs; No JVD, RRR Abdominal: NL Sounds; No Tenderness; No Distention Neurological: Alert and Oriented x 3 Result Diagrams: 10/10/18 06:01 10/10/18 06:01 Assess/Plan/Problems-Billing Assessment: 78 y/o male admitted for shortness of breath suspecting flare of his cryogenic organizing pneumonia - Patient Problems (1) Pneumonia Current Visit: No Status: Acute Code(s): J18.9 - PNEUMONIA, UNSPECIFIED ORGANISM SNOMED Code(s): 571759292 Comment: - Consistent with the patient's likely diagnosis is cryptogenic organizing pneumonia. - I have started the patient on solumedrol 40 mg IV q8hrs - I consulted Dr. Barksdale's for further recommendations - Obtained CTA to rule out PE given his recent travel - I started him as well on CAP coverage pending cultures (2) Shortness of breath Current Visit: No Status: Acute Code(s): R06.02 - SHORTNESS OF BREATH SNOMED Code(s): 596258975 Comment: - Consistent with the patient's likely diagnosis is cryptogenic organizing pneumonia. - I have started the patient on solumedrol 40 mg IV q8hrs - I consulted Dr. Barksdale'erlin for further recommendations - Obtained CTA to rule out PE given his recent travel - I started him as well on CAP coverage pending cultures (3) Diabetes Current Visit: No Status: Chronic Code(s): E11.9 - TYPE 2 DIABETES MELLITUS WITHOUT COMPLICATIONS SNOMED Code(s): 43798187 Comment: - On lantus with sliding scale (4) Gout flare Current Visit: No Status: Chronic Code(s): M10.9 - GOUT, UNSPECIFIED SNOMED Code(s): 42513750 Comment: - Continue indomethacin (5) HLD (hyperlipidemia) Current Visit: No Status: Chronic Code(s): E78.5 - HYPERLIPIDEMIA, UNSPECIFIED SNOMED Code(s): 91600511 Comment: - Continue atorvastatin. (6) HTN (hypertension) Current Visit: No Status: Chronic Code(s): I10 - ESSENTIAL (PRIMARY) HYPERTENSION SNOMED Code(s): 37723402 Comment: - Continue losartan 100 and toprol 25 mg daily (7) DVT prophylaxis Current Visit: No Status: Acute Code(s): EER8663 - SNOMED Code(s): 217885557 Comment: SQ lovenox
[2018-10-10] MEDS ORDERED: Insulin GLARGINE(*) 1 UNITS UNIT SUBCUT SCH (21:00)
--- NOTE | 2018-10-11 00:34 | CONS ---
PULMONARY CONSULTATION REPORT: DATE OF CONSULT: 10/10/18 CONSULTATION REQUESTED BY: Dr. Cifuentes. REASON FOR CONSULTATION: Evaluation of cough and shortness of breath. HISTORY OF PRESENT ILLNESS: The patient is a 78-year-old male, known to me from prior inpatient and outpatient evaluation. The patient with prior history of cryptogenic organizing pneumonia 1 year ago around the same time. The patient presents for evaluation of cough, fever, night sweats, and shortness of breath. 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 The patient responded very well to steroids at that time. He subsequently underwent steroid taper with improvement in symptoms. The patient reports no significant sputum production. Fevers are low grade. Symptoms started suddenly 2 days back and noted gradually getting worse. Denied wheeze or hemoptysis. The patient also reports 10 pound weight loss in the past 3 weeks, which he says it was intentional. The patient recently was in [place], traveled back on 09/27/18. Denies chest pain, palpitations, abdominal pain, nausea, vomiting, diarrhea, constipation. Denies pleuritic chest pain. The patient had chest x-ray, which did not reveal significant abnormality. He was given fluid bolus and was started on broad-spectrum antibiotics. Given prior history of BOOP, pulmonary consultation was requested. The patient reports slight improvement in symptoms since admission. The patient had a CT of the chest. I have personally reviewed the images with the patient - no evidence of filling defects in pulmonary arteries noted. The patient noted to have stable previously noted subpleural nodule in the left lung and also in the right middle lobe area. The patient noted to have mild scarring at bases. He was also found to have pleural based density in the right lower lobe. PAST MEDICAL HISTORY: 1. Diabetes. 2. Hypertension. 3. Dyslipidemia. 4. BPH. 5. Gout. 6. Pneumonia x3 in the past until he was diagnosed and treated for cryptogenic organizing pneumonia. 7. Nephrolithiasis. PAST SURGICAL HISTORY: 1. Umbilical hernia x2. 2. Left ulnar nerve decompression. 3. Lithotripsy with sent placement. 4. Right cataract repair. MEDICATIONS: 1. Indomethacin. 2. Dulaglutide. 3. Atorvastatin. 4. Aspirin. 5. Acetaminophen. 6. Multivitamin. 7. Metoprolol. 8. Metformin. 9. Irbesartan. 10. Insulin. ALLERGIES: No known drug allergies. The patient is allergic to ADHESIVE TAPE. FAMILY HISTORY: Positive for cataract disease, hypertension, diabetes, prostate cancer. Negative for CVA. SOCIAL HISTORY: Quit smoking 30 years ago, has 25-jidy-wfib smoking prior to that. Former light drinker. No alcohol abuse. Lives at home with . REVIEW OF SYSTEMS: All 12 systems were reviewed and as per HPI. PHYSICAL EXAM: The patient lying in bed, in no apparent distress. Vital Signs : Temperature 97.6, pulse 76 beats per minute, respiratory rate 18 per minute, O2 sat 97% on room air, blood pressure 129/44. HEENT: Pupils equal, reactive to light. Mucous membranes moist. Lungs: Good entry bilaterally. No wheeze. Fine crackles at right base. Cardiovascular: S1 and S2 present, regular. Abdomen: Soft, nontender, nondistended. Bowel sounds present. Extremities: Normal range of motion. Skin: No rash or bruits. Neuro: Alert, awake, oriented x3. No focal deficits. DIAGNOSTIC STUDIES/LAB DATA: WBC count 16.2, hemoglobin 11.5, hematocrit 35, platelet count 214. The patient also with left shift. Sodium 139, potassium 4.1, chloride 109, bicarb 34, BUN 18, creatinine 0.98. Lactic acid within normal limits. BNP also within normal limits. CRP elevated at 19.38. Influenza A and B negative. CT of the chest as described above in HPI. 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 The patient reports with similar symptoms after recent travel. CTA negative for pulmonary embolism. The patient's symptoms are consistent with cryptogenic organizing pneumonia. He has nodular lesions in the lung that are stable with no interval changes. He also has subpleural lesion that could be from BOOP, which is usually seen in that location. Will continue with steroid taper. As symptoms improve, we will need prolonged steroid taper as per symptoms. He is also being empirically treated for community-acquired pneumonia given elevated white count and recent febrile illness. Thank you for allowing me to participate in the care of your patient. Will follow up with you. [id number]/[facility] #: [id number] RICKIE
[2018-10-11] MEDS: methylPREDNISolone SOD 40 MG* 1 ML VIAL IV SCH ×3 (03:43→21:00)
[2018-10-11 07:27] LABS: ABS Basophils 0 10^3/ul (0-0.2); ABS Eosinophils 0 10^3/ul (0-0.6); ABS Monocytes 0.2 10^3/ul (0-0.8); ABS Nucleated RBC 0 10^3/ul; Eosinophil % 0 %; Hematocrit 36 % (36-46); Hemoglobin 12.1 g/dL (14.0-18.0); Lymphocyte % 8.1 %; Mean Corpuscular HGB Conc 34 g/dL (31-36); Mean Corpuscular Hemoglobin 31 pg (27-31); Mean Corpuscular Volume 89 fL (80-94); Nucleated Red Blood Cells % 0.1; Platelet Count 254 10^3/uL (150-450); Red Blood Count 3.97 10^6 /uL (4.18-5.48); Red Cell Distribution Width 14 % (10.5-15); White Blood Count 12.2 10^3/uL (3.5-10.8)
[2018-10-11 07:37] LABS: BUN/Creatinine Ratio 28.4 (8-20); Calcium 9.4 mg/dL (8.6-10.3); EGFR Non-African American 76.9 (>60); Magnesium 1.9 mg/dL (1.9-2.7); Phosphorus 3.5 mg/dL (2.5-5.0); Potassium 4.3 mmol/L (3.5-5.0)
[2018-10-11] MEDS: Insulin LISPRO* 1 UNITS UNIT SUBCUT SCH ×4 (08:49→20:59)
[2018-10-11] MEDS: cefTRIAXone(*) 1 GM in NS 0.9% 50 ML* 50 ML IVPB SCH (08:49)
[2018-10-11] MEDS: Metoprolol Succinate XL TAB* 25 MG PO SCH (08:53)
[2018-10-11] MEDS: Multivitamins/Minerals TAB PO SCH (08:53)
[2018-10-11] MEDS: Losartan TAB* 25 MG PO SCH (08:53)
[2018-10-11] MEDS: Atorvastatin* 40 MG TAB PO SCH (08:53)
[2018-10-11] MEDS: Aspirin EC TAB* 81 MG TAB.EC PO SCH (08:54)
[2018-10-11] MEDS: Azithromycin IV(*) 500 MG in NS 0.9% 250 ML* 250 ML IVPB SCH (10:00)
[2018-10-11] MEDS ORDERED: Insulin GLARGINE(*) 1 UNITS UNIT SUBCUT SCH (10:00)
[2018-10-11] MEDS ORDERED: Insulin LISPRO* 1 UNITS UNIT SUBCUT ONE (12:52)
[2018-10-11] MEDS ORDERED: Dextrose 50% Syringe 50 ML* 25 GM/50 ML SYRINGE IV PUSH PRN (12:52)
--- NOTE | 2018-10-11 14:29 | PN ---
Subjective Date of Service: 10/11/18 Interval History: He feels lot better, he is off the oxygen and room air. On IV steroid. Pulmonary consult appreciated. his BG elevated due to his steroid. Lantus titrated upward to total 80 unit per day (normally he is on 60 units at home). Past Medical History: Unchanged from Admission Objective Active Medications: Acetaminophen (Tylenol Tab*) 650 mg PO Q6H PRN PRN Reason: fever/discomfort Aspirin (Aspirin Ec Tab*) 81 mg PO QAM [facility] Last Admin: 10/11/18 08:54 Dose: 81 mg Atorvastatin Calcium (Lipitor*) 40 mg PO QAM [facility] Last Admin: 10/11/18 08:53 Dose: 40 mg Dextrose (D50w Syringe 50 Ml*) 12.5 gm IV PUSH .FOR FS < 60 - SS PRN PRN Reason: FS < 60 Enoxaparin Sodium (Lovenox(*)) 40 mg SUBCUT Q24H [facility] Last Admin: 10/10/18 21:33 Dose: 40 mg Ceftriaxone Sodium 1 gm/ (Sodium Chloride) 50 mls @ 200 mls/hr IVPB Q24H [facility] Last Admin: 10/11/18 08:49 Dose: 200 mls/hr Azithromycin 500 mg/ Sodium (Chloride) 250 mls @ 250 mls/hr IVPB Q24H [facility] Last Admin: 10/11/18 10:00 Dose: 250 mls/hr Indomethacin (Indocin Cap*) 25 mg PO TID PRN PRN Reason: GOUT Insulin Glargine (Lantus(*)) 30 units SUBCUT DAILY [facility] Insulin Glargine (Lantus(*)) 50 units SUBCUT BEDTIME [facility] Insulin Human Lispro (Humalog*) 0 units SUBCUT ACHS [facility]; Protocol Last Admin: 10/11/18 13:10 Dose: Not Given Losartan Potassium (Cozaar Tab*) 100 mg PO QAM [facility] Last Admin: 10/11/18 08:53 Dose: 100 mg Methylprednisolone Sodium Succinate (Solu-Medrol 40 Mg) 40 mg IV Q8H [facility] Last Admin: 10/11/18 11:34 Dose: 40 mg Metoprolol Succinate (Toprol Xl Tab*) 25 mg PO QAM [facility] Last Admin: 10/11/18 08:53 Dose: 25 mg Multivitamins/Minerals (Theragran/Minerals Tab*) 1 tab PO QAM [facility] Last Admin: 10/11/18 08:53 Dose: 1 tab Vital Signs - 8 hr 10/11/18 10/11/18 07:38 11:02 Temperature 97.0 F Pulse Rate 85 Respiratory 18 Rate Blood Pressure 130/62 (mmHg) O2 Sat by Pulse 98 98 Oximetry Oxygen Devices in Use Now: None Appearance: Awake, alert. no distress Eyes: No Scleral Icterus, - - EOMI Ears/Nose/Mouth/Throat: NL Teeth, Lips, Gums, Mucous Membranes Moist, - - on room air Neck: NL Appearance and Movements; NL JVP, Trachea Midline Respiratory: Symmetrical Chest Expansion and Respiratory Effort, Clear to Auscultation Cardiovascular: NL Sounds; No Murmurs; No JVD, RRR, No Edema Abdominal: NL Sounds; No Tenderness; No Distention Extremities: No Edema, No Clubbing, Cyanosis Skin: No Rash or Ulcers Neurological: Alert and Oriented x 3, NL Muscle Strength and Tone Result Diagrams: 10/11/18 07:12 10/11/18 07:12 Microbiology and Other Data: Microbiology 10/09/18 20:00 Urine Culture - Final Urine No Growth (<1,000 CFU/mL) 10/09/18 19:30 Aerobic Blood Culture - Preliminary Blood Venous No Growth Day 1 Anaerobic Blood Culture - Preliminary Blood MRSA/MSSA (PCR) - Final Mrsa Negative S.aureus Negative 10/09/18 19:30 Aerobic Blood Culture - Preliminary Blood Venous No Growth Day 1 Anaerobic Blood Culture - Preliminary No Growth Day 1 Assess/Plan/Problems-Billing Assessment: 78 y/o male admitted for shortness of breath suspecting flare of his cryogenic organizing pneumonia - Patient Problems (1) Pneumonia Current Visit: No Status: Acute Code(s): J18.9 - PNEUMONIA, UNSPECIFIED ORGANISM SNOMED Code(s): 524327876 Comment: - Consistent with the patient's likely diagnosis is cryptogenic organizing pneumonia. - I will continue him on solumedrol 40 mg IV q8hrs, if remain stable will transition to po prednisone in am - Dr. Barksdale's recommendations appreciated - CTA negative for PE, I started him as well on CAP coverage pending cultures (2) Shortness of breath Current Visit: No Status: Acute Code(s): R06.02 - SHORTNESS OF BREATH SNOMED Code(s): 478510586 Comment: - Consistent with the patient's likely diagnosis is cryptogenic organizing pneumonia. - I will continue him on solumedrol 40 mg IV q8hrs, if remain stable will transition to po prednisone in am - Dr. Barksdale's recommendations appreciated - CTA negative for PE, I started him as well on CAP coverage pending cultures (3) Diabetes Current Visit: No Status: Chronic Code(s): E11.9 - TYPE 2 DIABETES MELLITUS WITHOUT COMPLICATIONS SNOMED Code(s): 39412718 Comment: - On lantus with sliding scale - Given his steroid, I did increase his lantus from 40 units/day to 80 units per day (30 units am and 50 units pm) (4) Gout flare Current Visit: No Status: Chronic Code(s): M10.9 - GOUT, UNSPECIFIED SNOMED Code(s): 49119572 Comment: - Continue indomethacin (5) HLD (hyperlipidemia) Current Visit: No Status: Chronic Code(s): E78.5 - HYPERLIPIDEMIA, UNSPECIFIED SNOMED Code(s): 10232670 Comment: - Continue atorvastatin. (6) HTN (hypertension) Current Visit: No Status: Chronic Code(s): I10 - ESSENTIAL (PRIMARY) HYPERTENSION SNOMED Code(s): 07678229 Comment: - Continue losartan 100 and toprol 25 mg daily (7) DVT prophylaxis Current Visit: No Status: Acute Code(s): KXV1584 - SNOMED Code(s): 202354954 Comment: SQ lovenox
[2018-10-11] MEDS: Insulin GLARGINE(*) 1 UNITS UNIT SUBCUT SCH (20:59)
[2018-10-11] MEDS: Enoxaparin(*) 40 MG/0.4 ML SYR SUBCUT SCH (21:00)
[2018-10-12] MEDS: methylPREDNISolone SOD 40 MG* 1 ML VIAL IV SCH (04:52)
[2018-10-12] MEDS: Multivitamins/Minerals TAB PO SCH (09:06)
[2018-10-12] MEDS: Losartan TAB* 25 MG PO SCH (09:06)
[2018-10-12] MEDS: Aspirin EC TAB* 81 MG TAB.EC PO SCH (09:06)
[2018-10-12] MEDS: predniSONE TAB* 20 MG PO SCH (09:06)
[2018-10-12] MEDS: Atorvastatin* 40 MG TAB PO SCH (09:06)
[2018-10-12] MEDS: Metoprolol Succinate XL TAB* 25 MG PO SCH (09:06)
[2018-10-12] MEDS: Insulin LISPRO* 1 UNITS UNIT SUBCUT SCH ×4 (09:07→21:02)
[2018-10-12] MEDS: Insulin GLARGINE(*) 1 UNITS UNIT SUBCUT SCH ×2 (09:07→21:03)
[2018-10-12] MEDS: cefTRIAXone(*) 1 GM in NS 0.9% 50 ML* 50 ML IVPB SCH (09:18)
[2018-10-12] MEDS: Azithromycin IV(*) 500 MG in NS 0.9% 250 ML* 250 ML IVPB SCH (09:58)
--- NOTE | 2018-10-12 10:57 | PN ---
Subjective Date of Service: 10/12/18 Interval History: Patient awake, alert. Doing well. He is concerned about his BG I did explain that his BG related to increase in steroid. Lantus has been adjusted to compensate for the increase in steroid. Now he is on lantus 30 units am and 50 units pm. Off oxygen on room air and no fever for 24 hrs. Past Medical History: Unchanged from Admission Objective Active Medications: Acetaminophen (Tylenol Tab*) 650 mg PO Q6H PRN PRN Reason: fever/discomfort Aspirin (Aspirin Ec Tab*) 81 mg PO QAM [facility] Last Admin: 10/12/18 09:06 Dose: 81 mg Atorvastatin Calcium (Lipitor*) [facility] [place] [facility] Admin: 10/12/18 09:06 Dose: 40 mg Dextrose (D50w Syringe 50 Ml*) 12.5 gm IV PUSH .FOR FS < 60 - SS PRN PRN Reason: FS < 60 Enoxaparin Sodium (Lovenox(*)) 40 mg SUBCUT Q24H [facility] Last Admin: 10/11/18 21:00 Dose: 40 mg Ceftriaxone Sodium 1 gm/ (Sodium Chloride) 50 mls @ 200 mls/hr IVPB Q24H [facility] Last Admin: 10/12/18 09:18 Dose: 200 mls/hr Azithromycin 500 mg/ Sodium (Chloride) 250 mls @ 250 mls/hr IVPB Q24H [facility] Last Admin: 10/12/18 09:58 Dose: 250 mls/hr Indomethacin (Indocin Cap*) 25 mg PO TID PRN PRN Reason: GOUT Insulin Glargine (Lantus(*)) 30 units SUBCUT DAILY [facility] Last Admin: 10/12/18 09:07 Dose: 30 units Insulin Glargine (Lantus(*)) 50 units SUBCUT BEDTIME [facility] Last Admin: 10/11/18 20:59 Dose: 50 units Insulin Human Lispro (Humalog*) 0 units SUBCUT [facility]; Protocol Last Admin: 10/12/18 09:07 Dose: 4 units Losartan Potassium (Cozaar Tab*) [facility] [place] Last Admin: 10/12/18 09:06 Dose: 100 mg Metoprolol Succinate (Toprol Xl Tab*) 25 [facility] [place] Last Admin: 10/12/18 09:06 Dose: 25 mg Multivitamins/Minerals (Theragran/Minerals Tab*) 1 tab PO QAM [facility] Last Admin: 10/12/18 09:06 Dose: 1 tab Prednisone (Deltasone Tab*) 40 mg PO DAILY [facility] Last Admin: 10/12/18 09:06 Dose: 40 mg Vital Signs - 8 hr 10/12/18 10/12/18 03:03 07:15 Temperature 97.6 F 97.7 F Pulse Rate 62 63 Respiratory 18 18 Rate Blood Pressure 139/61 140/76 (mmHg) O2 Sat by Pulse 97 96 Oximetry Oxygen Devices in Use Now: None Appearance: Awake, alert. no distress. taking po well Eyes: No Scleral Icterus, PERRLA Ears/Nose/Mouth/Throat: NL Teeth, Lips, Gums, Clear Oropharnyx, Mucous Membranes Moist Neck: NL Appearance and Movements; NL JVP, Trachea Midline Respiratory: Symmetrical Chest Expansion and Respiratory Effort, Clear to Auscultation Cardiovascular: NL Sounds; No Murmurs; No JVD, RRR, No Edema Abdominal: NL Sounds; No Tenderness; No Distention Skin: No Rash or Ulcers Neurological: Alert and Oriented x 3 Result Diagrams: 10/11/18 07:12 10/11/18 07:12 Microbiology and Other Data: Microbiology 10/09/18 20:00 Urine Culture - Final Urine No Growth (<1,000 CFU/mL) 10/09/18 19:30 Aerobic Blood Culture - Preliminary Blood Venous No Growth Day 1 Anaerobic Blood Culture - Preliminary Blood MRSA/MSSA (PCR) - Final Mrsa Negative S.aureus Negative 10/09/18 19:30 Aerobic Blood Culture - Preliminary Blood Venous No Growth Day 1 Anaerobic Blood Culture - Preliminary No Growth Day 1 Assess/Plan/Problems-Billing Assessment: 78 y/o male admitted for shortness of breath suspecting flare of his cryogenic organizing pneumonia - Patient Problems (1) Pneumonia Current Visit: No Status: Acute Code(s): J18.9 - PNEUMONIA, UNSPECIFIED ORGANISM SNOMED Code(s): 731011935 Comment: - Consistent with the patient's likely diagnosis is cryptogenic organizing pneumonia. - I will discontinue his solumedrol 40 mg IV q8hrs to po prednisone 40 mg starting today. - Dr. Barksdale's recommendations appreciated. - CTA negative for PE, I started him as well on CAP coverage given his fever - If remains stable on po steroid he may be discharged in am on oral prednisone and to complete 7 days course of antibiotics. (2) Shortness of breath Current Visit: No Status: Acute Code(s): R06.02 - SHORTNESS OF BREATH SNOMED Code(s): 008182106 Comment: - Consistent with the patient's likely diagnosis is cryptogenic organizing pneumonia. - I will discontinue his solumedrol 40 mg IV q8hrs to po prednisone 40 mg starting today. - Dr. Barksdale's recommendations appreciated. - CTA negative for PE, I started him as well on CAP coverage given his fever - If remains stable on po steroid he may be discharged in am on oral prednisone and to complete 7 days course of antibiotics. (3) Diabetes Current Visit: No Status: Chronic Code(s): E11.9 - TYPE 2 DIABETES MELLITUS WITHOUT COMPLICATIONS SNOMED Code(s): 04450491 Comment: - On lantus with sliding scale - Given his steroid, I did increase his lantus from 40 units/day to 80 units per day (30 units am and 50 units pm) - He will probably need to remain on at least 80 units when he goes home and taper it as his steroid taper down at outpatient (4) Gout flare Current Visit: No Status: Chronic Code(s): M10.9 - GOUT, UNSPECIFIED SNOMED Code(s): 09077989 Comment: - Continue indomethacin (5) HLD (hyperlipidemia) Current Visit: No Status: Chronic Code(s): E78.5 - HYPERLIPIDEMIA, UNSPECIFIED SNOMED Code(s): 09465431 Comment: - Continue atorvastatin. (6) HTN (hypertension) Current Visit: No Status: Chronic Code(s): I10 - ESSENTIAL (PRIMARY) HYPERTENSION SNOMED Code(s): 60600378 Comment: - Continue losartan 100 and toprol 25 mg daily (7) DVT prophylaxis Current Visit: No Status: Acute Code(s): MEY5048 - SNOMED Code(s): 653847671 Comment: SQ lovenox
--- NOTE | 2018-10-12 15:05 | PN ---
Progress Note - Progress Note Date of Service: 10/12/18 - Pulm f/u note Note: Pt seen and examined at bedside. Pt reports feeling better. Has ambulated yesterday without any issue. Bl sugars are better controlled today. denied SOB, chest pain, cough Active Medications Generic Name Dose Route Start Last Admin Trade Name Freq PRN Reason Stop Dose Admin Acetaminophen 650 mg 10/09/18 22:55 Tylenol Tab* PO Q6H PRN fever/discomfort Aspirin 81 mg 10/10/18 09:00 10/12/18 09:06 Aspirin Ec Tab* PO 81 mg QAM MARCOS Administration Atorvastatin Calcium 40 mg 10/10/18 09:00 10/12/18 09:06 Lipitor* PO 40 mg QAM MARCOS Administration Dextrose 12.5 gm 10/09/18 23:49 D50w Syringe 50 Ml* IV PUSH .FOR FS < 60 - SS PRN FS < 60 Enoxaparin Sodium 40 mg 10/09/18 23:00 10/11/18 21:00 Lovenox(*) SUBCUT 40 mg Q24H [facility]OS Administration Ceftriaxone Sodium 1 gm/ 50 mls @ 200 mls/hr 10/10/18 09:00 10/12/18 09:18 Sodium Chloride IVPB 200 mls/hr Q24H [facility]OS Administration Azithromycin 500 mg/ Sodium 250 mls @ 250 mls/hr 10/10/18 09:30 10/12/18 09: 58 Chloride IVPB 250 mls/hr Q24H [facility]OS Administration Indomethacin 25 mg 10/09/18 22:55 Indocin Cap* PO TID PRN GOUT Insulin Glargine 30 units 10/12/18 09:00 10/12/18 09:07 Lantus(*) SUBCUT 30 units DAILY [facility]OS Administration Insulin Glargine 50 units 10/11/18 21:00 10/11/18 20:59 Lantus(*) SUBCUT 50 units BEDTIME [facility] Administration Insulin Human Lispro 0 units 10/10/18 07:30 10/12/18 12:25 Humalog* SUBCUT 6 units ACHS MARCOS Administration Protocol Losartan Potassium 100 mg 10/10/18 09:00 10/12/18 09:06 Cozaar Tab* PO 100 mg QAM MARCOS Administration Metoprolol Succinate 25 mg 10/10/18 09:00 10/12/18 09:06 Toprol Xl Tab* PO 25 mg QAM MARCOS Administration Multivitamins/Minerals 1 tab 10/10/18 09:00 10/12/18 09:06 Theragran/Minerals Tab* PO 1 tab QAM MARCOS Administration Prednisone 40 mg 10/12/18 09:00 10/12/18 09:06 Deltasone Tab* PO 40 mg DAILY [facility]OS Administration Vital Signs Temp Pulse Resp BP Pulse Ox 97.7 F 63 18 140/76 96 10/12/18 07:57 10/12/18 07:57 10/12/18 08:00 10/12/18 07:57 10/12/18 07:57 O/E: Pt in NAD HEENT: PERRLA Lungs: Clear to auscultaiton b/l CVS: S1, S2+, regular Abd: Soft, BS+ Ext: No edema Neuro: No focal deficits Skin: No rash Laboratory Results - last 24 hr 10/11/18 10/12/18 10/12/18 16:15 07:36 11:27 POC Glucose (mg/dL) 350 H 253 H 299 H I/R: 78 y o m with prior h/o [employer] a/w similar sx, was started on steroids with improvement in sx Fatigue is improving Will start steroid taper will do 30mg prednisone daily for 1 week and taper by 5 mg weekly Close monitoring of bl sugars while on prednisone c/w abx 7 day course Will need f/u CT in 3 months to ensure resolution DVT px D/c planning
[2018-10-13] MEDS: Enoxaparin(*) 40 MG/0.4 ML SYR SUBCUT SCH (03:32)
[2018-10-13 07:34] VITALS: BP 120/48
[2018-10-13] MEDS: Losartan TAB* 25 MG PO SCH (11:04)
[2018-10-13] MEDS: Atorvastatin* 40 MG TAB PO SCH (11:05)
[2018-10-13] MEDS: Insulin GLARGINE(*) 1 UNITS UNIT SUBCUT SCH (11:05)
[2018-10-13] MEDS: predniSONE TAB* 20 MG PO SCH (11:05)
[2018-10-13] MEDS: Multivitamins/Minerals TAB PO SCH (11:05)
[2018-10-13] MEDS: Metoprolol Succinate XL TAB* 25 MG PO SCH (11:05)
[2018-10-13] MEDS: Aspirin EC TAB* 81 MG TAB.EC PO SCH (11:06)
[2018-10-13] MEDS: cefTRIAXone(*) 1 GM in NS 0.9% 50 ML* 50 ML IVPB SCH (11:39)
[2018-10-13] MEDS: Insulin LISPRO* 1 UNITS UNIT SUBCUT SCH (11:39)
[2018-10-13] MEDS: Azithromycin IV(*) 500 MG in NS 0.9% 250 ML* 250 ML IVPB SCH (11:39)
--- NOTE | 2018-10-13 12:19 | DS ---
CC: Dr. Zia Green; Dr. Niecy Barksdale * DISCHARGE SUMMARY: DATE OF ADMISSION: 10/10/18 DATE OF DISCHARGE: 10/13/18 PRIMARY CARE PROVIDER: Dr. Zia Green. FINAL DISCHARGE DIAGNOSES: 1. Cryptogenic organizing pneumonia exacerbation. 2. Community-acquired pneumonia. 3. Hypertension. 4. Diabetes. 5. Gout. HOSPITAL COURSE: The patient presented to [facility] on the night of 10/09/18, was admitted to the medical service under observation and later was transitioned to full admission on 10/10/18 for cough, fever, and shortness of breath. The patient on presentation reported fever and shortness of breath where his cough was nonproductive 2 days prior to presentation and his symptoms progressed fairly fast, he finally brought himself to emergency room. The patient was started on broad-spectrum antibiotics with vancomycin and Zosyn, was given 2 L of IV fluids and his blood work was revealing for white count of 16,000, 96% requiring 2 L of oxygen and a temperature of 102 Fahrenheit. The patient was admitted and his medications were transitioned to IV ceftriaxone and azithromycin. The patient was seen by me on the following day, on 10/10/18. He was added Solu- Medrol to his regimen given the history of cryptogenic organizing pneumonia and Pulmonary consultation was obtained with Dr. Barksdale. He was maintained on oxygen and steroids, IV antibiotics and he was monitored over the following 2 to 3 days and his oxygen saturation improved and he actually became 98% on room air. His fevers subsided and temperature next day became afebrile from 102 down to 99 and he has been 98, 97 throughout the stay. He was transitioned to oral prednisone yesterday on 10/12/18. He was seen today. He remains 98% on room air, asymptomatic, significantly improved respiratory wu and energy wu. He is not nauseated, tolerating p.o. diet and his blood sugar although was slightly elevated given the fact he was on high -dose steroid, his Lantus regimen was adjusted and his blood sugar finally trended down from 425, down to 300, then 200 and this morning was 88. Therefore , I saw and evaluated the patient this morning and he was deemed stable for discharge home in a stable condition. PHYSICAL EXAMINATION: Vital Signs: Temperature 97.5, pulse 56, respiratory rate 18, satting 98%, blood pressure 120/48. Generally, he is awake, alert, oriented, in no apparent distress. Head and Neck: Normocephalic, atraumatic. Supple. Anicteric sclerae. No JVD. Lungs: Clear to auscultation. No rhonchi or wheeze. Cardiovascular: S1 and S2. Regular rate and rhythm. Slightly bradycardic in 62 to 56. Abdomen: Positive bowel sounds, soft, nontender, and nondistended. Extremities: No pedal edema. No tenderness. Good peripheral pulse. DIAGNOSTIC STUDIES/LAB DATA: He had CBC, multiple, presented with white count 16,000, was down to 12,000 on 10/11/18. Chemistry, other than elevated blood sugars up to 400, down to 88 now with adjustment of his Lantus, is unremarkable. Urinalysis negative. Influenza A and B negative. Chest x-ray, 10/09/18, some obstructive lung disease, otherwise no acute pathology or evidence of infiltrate. CT angiogram shows no PE. Some fibrotic changes. Stable pulmonary nodule. No obvious consolidation. CONSULTATION: Pulmonary with Dr. Niecy Barksdale. DISCHARGE MEDICATIONS: The patient will be discharged on his home medications, to be resumed as follows: 1. Aspirin 81 mg daily. 2. Lipitor 40 daily. 3. Trulicity 0.75 mg once a week. 4. Indomethacin 25 t.i.d. p.r.n. 5. Lantus 60 units at bedtime, but I did inform the patient while he is on the steroid to increase to 70 units and once his blood sugar is below 120 every morning, he may cut back to 60. 6. Avapro 300 mg daily. 7. Metformin 500 daily. 8. Metoprolol 25 daily. 9. Multivitamin 1 tab daily. 10. Tylenol p.r.n. New medication on discharge: 1. Azithromycin 250 mg daily for 2 more days. 2. Vantin 200 mg b.i.d. for 4 days. 3. Prednisone 40 mg for 5 days, 30 mg for 5 days, 20 mg for 5 days, 10 mg for 5 days. DISCHARGE RECOMMENDATION: 1. The patient to follow up with the primary care in 1 to 2 weeks. 2. Follow up with Dr. Barksdale in 1 to 2 weeks. 3. Take all medications as prescribed including his antibiotics, although his chest x-ray serially did not reveal the evidence of consolidation; however, he does have the clinical finding and clinically for bronchial pneumonia, it is probably from community-acquired, hence the antibiotics to complete at least 7 days course. DISCHARGE DISPOSITION: Home. DISCHARGE CONDITION: Stable. [id number]/CPS #: [id number] RICKIE
== END 2018-10-13 12:10 | disposition home or self-care (01) | DRG 198 ==
LOC: ED 18:53 → MED 22:48 → OBSVTOIN 10-10 16:00
PROVIDERS: ADMIT Internal Medicine; ATTEND Internal Medicine
DX: J84.116 Cryptogenic organizing pneumonia (principal); E11.36 Type 2 diabetes mellitus with diabetic cataract; I10 Essential (primary) hypertension; E78.5 Hyperlipidemia, unspecified; Z96.0 Presence of urogenital implants; N40.0 Benign prostatic hyperplasia without lower urinary tract symptoms; Z96.1 Presence of intraocular lens; R91.1 Solitary pulmonary nodule; M10.9 Gout, unspecified; Z87.442 Personal history of urinary calculi; Z88.8 Allergy status to other drugs, medicaments and biological substances; Z87.891 Personal history of nicotine dependence; Z98.41 Cataract extraction status, right eye; Z85.828 Personal history of other malignant neoplasm of skin; Z82.49 Family history of ischemic heart disease and other diseases of the circulatory system; Z83.3 Family history of diabetes mellitus; Z80.42 Family history of malignant neoplasm of prostate; Z79.82 Long term (current) use of aspirin; Z79.4 Long term (current) use of insulin
CPT/HCPCS: 36415; 71046; 71275; 80048; 80053; 81003; 81015; 82947; 83605; 83735; 83880; 84100; 84484; 85025; 85610; 85730; 86140; 87040; 87077; 87086; 87150; 87205; 99285; A9270-GY; J0456; J0696; J1650; J2543; J2920; J3370; J7512; Q9967

== ENCOUNTER 2019-07-07 11:53 | Day surgery (SDC) | payer MEDICARE ==
[~2019-07-07 11:53] MED LIST changes: +Buffered Lidocaine 1% SYRIN* 1 ML/SYRINGE INTRADERM ONE; +Lactated Ringers 1000 ML Bag* 1,000 ML IV SCH; -Lidocaine 1% INJ* 10 MG/ML 30 ML SDV ONE; -Lidocaine 2% JELLY* 6 ML JELLY TOPICAL ONE; -Lidocaine 2% PF* 10 ML AMP ONE
[2019-07-07] MEDS ORDERED: ceFAZolin 2 GM PREMIX in ORs 2 GM/50 ML BAG ONE (12:37)
[2019-07-07] MEDS ORDERED: Midazolam* 1 MG/ML 2 ML VIAL (2 MG) ONE (13:37)
[2019-07-07] MEDS ORDERED: fentaNYL* 50 MCG/ML 2 ML VIAL (100 MCG VIAL) ONE (13:38)
[2019-07-07] MEDS ORDERED: Lidocaine 2% PF * 5 ML VIAL ONE (13:38)
[2019-07-07] MEDS ORDERED: Propofol* 10 MG/ML 20 ML BTL ONE (13:38)
[2019-07-07] MEDS ORDERED: Bupivacaine 0.25% SDV* 30 ML ONE ×2 (13:57→16:26)
[2019-07-07] MEDS ORDERED: Phenylephrine 40 MCG/ML SYRINGE ONE (15:10)
[2019-07-07] MEDS ORDERED: Ondansetron INJ* 2 MG/ML VIAL ONE (15:12)
[2019-07-07] MEDS ORDERED: Metoclopramide IV* 5 MG/ML 2 ML VIAL ONE (15:12)
[2019-07-07] MEDS ORDERED: Ketorolac INJ* 30 MG/ML 1 ML VIAL ONE (15:12)
[2019-07-07] MEDS ORDERED: Dexamethasone IV* 4 MG/ML 1 ML (4 MG) ONE (15:12)
[2019-07-07] MEDS ORDERED: Naloxone* 0.4 MG/ML 1 ML VIAL IV PRN (16:00)
[2019-07-07] MEDS ORDERED: DiMENhydriNATE IV* 50 MG/ML VIAL IV PUSH PRN (16:00)
[2019-07-07] MEDS ORDERED: fentaNYL* 50 MCG/ML 2 ML VIAL (100 MCG VIAL) IV PRN (16:00)
[2019-07-07] MEDS ORDERED: oxyCODONE TAB* 5 MG TAB PO PRN (16:00)
[2019-07-07 16:50] LABS: Calcium 8.2 mg/dL (8.6-10.3); Magnesium 1.7 mg/dL (1.9-2.7); Potassium 3.9 mmol/L (3.5-5.0)
[2019-07-07 16:56] LABS: BUN/Creatinine Ratio 21.9 (8-20); EGFR African American 91.7 (>60); EGFR Non-African American 75.8 (>60)
[2019-07-07] MEDS ORDERED: Magnesium Sulfate 2 GM IV* 2 GM/50 ML BAG IVPB ONE (16:59)
[2019-07-07] MEDS ORDERED: Calcium Gluconate INJ* 2 GM in NS 0.9% 100 ML* 100 ML IV ONE (17:00)
[2019-07-07 20:11] VITALS: BP 132/74
--- NOTE | 2019-07-08 02:57 | OP ---
DATE OF OPERATION: 07/07/19 - LOCATED WITHIN [facility] DATE OF : 42 SURGEON: Fernie Watkins MD REVIEW ANALYST: REAL Hurt. An data analysis assistant was needed for the procedure to aid in positioning of the arm and retraction. ANESTHESIOLOGIST: Dr. Merida ANESTHESIA: General PRE-OP DIAGNOSES: 1. 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 2. 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 3. Left carpal tunnel syndrome. POST-OP DIAGNOSES: 1. 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 2. 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 3. Left carpal tunnel syndrome. OPERATIVE PROCEDURE: 1. Revision left ulnar nerve transposition with conversion to transmuscular transposition. 2. Left ulnar nerve decompression at the wrist. 3. Left carpal tunnel release. INDICATIONS: Mr. Rainey has the aforementioned conditions. He has both severe recurrent ulnar nerve symptoms as well as carpal tunnel symptoms. We had talked about treatment options, risks and benefits. He had wanted to proceed with surgery. ESTIMATED BLOOD LOSS: 2 mL. COMPLICATIONS: None. FINDINGS: See above and below. DESCRIPTION OF PROCEDURE: Mr. Rainey was seen in the preoperative holding area. The correct site, side and procedure were identified. We came back to the operating room. The arm was prepped and draped in usual fashion and a time- out was performed. The arm was exsanguinated with the Esmarch and the tourniquet was inflated. First, I went ahead and made a longitudinal incision in the proximal thumb, this was brought back across the ulnar side of the wrist in a Anupam type fashion. Dissection was carried down, the transverse carpal ligament was released just off the radial aspect of the hook of the hamate. The release was carried out distally and then carried out proximally. I went ahead and released the distal antebrachial fascia proximally. At this point there was absolutely no compression on the median nerve through the carpal tunnel. I then identified the leading edge of the fascia overlying Guyon's canal. This was released. The fascia all along the neurovascular bundle was identified. There was 1 cm segment of the ulnar artery that looked like it might have poor flow through it. It was difficult to tell because the tourniquet was down. I went ahead and completed the release all the way down distally. I then released the fascia proximally. I then went ahead and gently retracted the artery ulnarly and made sure the nerve was full decompressed. I then released the hypothenar fascia, the muscular origin and then the subfascial layer to fully decompress the motor branch. At this point the release distally was looking very nice. I went ahead and let down the tourniquet. It did look like there was pulsatile flow through the artery. I went ahead and reexsanguinated the arm and inflated the tourniquet again. Wound was irrigated out. The skin was closed with 4-0 nylon suture. With those two decompressions done, we turned our attention to the elbow. I went ahead and reopened this prior incision, it was a more anterior incision. I extended it distally and proximally into more wrangell tissue. Dissection was carried down, the ulnar nerve was identified and neurolysis was performed all through the area of the prior subcutaneous transposition. The medial intramuscular septum was still present. That was excised. The leading edge of the FCU fascia was excised. The vessel loop was placed around the ulnar nerve and a full neurolysis was performed. I went ahead and made sure that the decompression had occurred all the way and past the arcade of [place] and and distally to an adequate length. I mobilized the motor branch to the FCU. At this point the nerve was quite mobile. I raised step-cut fascial flaps in the flexor pronator fascia and muscular septae were excised. The nerve was transposed up on the muscular bed. I then sew the two ends of the fascial flaps in the end with a 4-0 Ethibond suture, this held the nerve nicely in the transposed position. At this point everything was looking very nice. Hemostasis was obtained with a Bovie and bipolar cautery throughout. The wound was irrigated out, subcutaneous tissue was reapproximated with 3-0 Vicryl sutures. The skin was closed with 3-0 Monocryl and Steri-Strips. A 0.25% Marcaine was infiltrated out on the operative areas. The wounds were dressed and a long arm splint with a lateral buttress was applied. Tourniquet was deflated and he was taken to the recovery room in stable condition. [id number]/[facility] #: [id number] [facility] MEDICAL CENTERNalini
== END 2019-07-07 20:13 | disposition home or self-care (01) ==
LOC: OR 11:53
PROVIDERS: ATTEND Orthopaedic Surgery Hand Surgery
DX: G56.22 Lesion of ulnar nerve, left upper limb (principal); G56.02 Carpal tunnel syndrome, left upper limb; E11.9 Type 2 diabetes mellitus without complications; Z79.4 Long term (current) use of insulin; Z87.891 Personal history of nicotine dependence; Z85.828 Personal history of other malignant neoplasm of skin; I10 Essential (primary) hypertension; E78.5 Hyperlipidemia, unspecified; L57.0 Actinic keratosis
CPT/HCPCS: 36415; 80048; 83735; J0610; J0690; J1100; J1885; J2250; J2405; J2704; J2765; J3010; J3475; J3490

== ENCOUNTER 2019-07-27 18:24 | Observation (INO) | payer MEDICARE ==
--- OUTSIDE RECORDS SUMMARY | 2019-07-27 18:31 | XMS REPORT | Continuity of Care Document ---
:1940 External Reference #:[id number] Author Name Ruben Stephens, OD Address [address] [place] [address] Care Team Providers Name Role Phone Zia Green MD - Lead Pressman Care Team Information Exhibits Coordinator [phone] Problems Active Problems Provider Date Type 2 diabetes mellitus Onset: 11/07/2013 Pure hypercholesterolemia Onset: 11/07/2013 Essential hypertension Onset: 11/07/2013 Presence of intraocular lens Jean Claude Snyder M.D. Onset: 02/24/2016 Convalescence after surgery Jean Claude Snyder M.D. Onset: 01/19/2016 Combined form of senile cataract Jean Claude Snyder M.D. Onset: 12/22/2015 Nuclear senile cataract Wandy aCstro O.D. 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 Onset: tear Presbyopia Ruben He O.D. Onset: 11/07/2013 Myopia Ruben He O.D. Onset: 11/07/2013 Epiretinal membrane Ruben He O.D. Onset: 11/07/2013 Nuclear cataract Ruben He O.D. Onset: 11/07/2013 Social History Type Date Description Comments Sex Unknown ETOH Use Occasionally consumed alcohol in the past Tobacco Use Start: Unknown End: Unknown Patient is a former smoker Smoking Status Reviewed: 06/20/19 Patient is a former smoker Allergies, Adverse Reactions, Alerts Description No Known Drug Allergies Medications Active Medications SIG Qnty Indications Ordering Provider Date Irbesartan Zia Green MD 300mg Tablets Lantus Solostar Zia Green MD 100Unit/ML Sopn Indomethacin Zia Green MD 25mg Capsules Multi-Vitamins Zia Green MD Tablets Atorvastatin Calcium Zia Green MD 40mg Tablets Humalog Kwikpen Zia Green MD 100Unit/ML Sopn Metoprolol Succinate ER Zia Green MD 25mg Tablets ER 24HR Trulicity Unknown 0.75mg/0.5ML Solution Pen-Inject Gabapentin Unknown 100mg Capsules Immunizations Description No Information Available Vital Signs Date Vital Result Comment 10/07/2018 9:11am Intraocular Pressure Right Eye 15 mmHg Intraocular Pressure Left Eye 15 mmHg 01/15/2018 10:10am Intraocular Pressure Right Eye 15 mmHg Intraocular Pressure Left Eye 15 mmHg Results Description No Information Available Procedures Date Code Description Status 01/06/2019 40484 Fundus Photography W/Interpretation & Report Completed 01/06/2019 29276 Ophthalmoscopy Subsequent Completed 01/06/2019 60756 Eye Exam Est Comprehensive Completed Medical Devices Description No Information Available Encounters Description No Information Available Assessments Date Code Description Provider 01/06/2019 Z96.1 Presence of intraocular lens Ruben Stephens, OD 01/06/2019 E11.9 Type 2 diabetes mellitus without complications Ruben Stephens, OD 01/06/2019 H59.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
--- OUTSIDE RECORDS SUMMARY | 2019-07-27 18:31 | XMS REPORT | Continuity of Care Document ---
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 Dyspnea Delphine Mendenhall NP Onset: 06/13/2018 Cough Delphine Mendenhall NP Onset: 06/13/2018 Type 2 diabetes mellitus Delphine Mendenhall NP Onset: 06/13/2018 Long-term current use of insulin Delphine Mendenhall NP Onset: 06/13/2018 Carpal tunnel syndrome of left wrist Fernie Watkins MD Onset: 05/27/2019 Lesion of ulnar nerve Fernie Watkins MD Onset: 05/27/2019 Social History Type Date Description Comments Sex Unknown ETOH Use Never used alcohol Tobacco Use Start: Unknown End: Patient is a former quit 30 yrs ago, Unknown smoker smoked for 40yrs 1PPD Recreational Drug Use Denies Drug Use Smoking Status Reviewed: 06/17/19 Patient is a former quit 30 yrs ago, smoker smoked for 40yrs 1PPD Exercise Type/Frequency Walks sporadically Allergies, Adverse Reactions, Alerts Active Allergies Reaction Severity Comments Date NKDA 11/22/2016 Latex 05/27/2019 Adhesive 05/27/2019 Medications Active Medications SIG Qnty Indications Ordering Provider Date Tablets 1 by mouth every Niecy Barksdale MD 03/20/2018 2.5mg Tablet day Lantus Solostar 65 units at Zia Green MD bedtime 100Unit/ML Solution Pen-Inject Irbesartan once daily Shallish, Zia, MD 300mg Tablets Metoprolol Succinate once daily Zia Green MD ER 25mg Tablets ER 24HR Atorvastatin Calcium once daily Zia Green MD 40mg Tablets Aspirin 1 by mouth every Unknown 81mg Tablets Novolog Flexpen 15 units daily Unknown 100Unit/ML Solution Pen-Inject Indomethacin 1 by mouth every Unknown 25mg day as needed Capsules Trulicity Unknown Immunizations Description No Information Available Vital Signs Date Vital Result Comment 06/17/2019 1:35pm Height 70 inches 5'10" Weight 195.00 lb Heart Rate 84 /min BP Systolic 132 mmHg BP Diastolic 70 mmHg Respiratory Rate 14 /min Body Temperature 97.1 F Pain Level 1 BMI (Body Mass Index) 28.0 kg/m2 05/27/2019 10:53am Height 69.5 inches 5'9.50" Weight 191.50 lb Heart Rate 78 /min BP Systolic 120 mmHg BP Diastolic 78 mmHg Respiratory Rate 16 /min Pain Level 6 BMI (Body Mass Index) 27.9 kg/m2 Results Description No Information Available Procedures Date Code Description Status 06/10/2019 94120 Nerve Conduction 03-04 Studies Completed 06/10/2019 13911 Needle Electromyography Complete, Five Or More Muscles Completed Studied Medical Devices Description No Information Available Encounters Type Date Location Provider Dx Diagnosis Office Visit 06/17/2019 [facility] Fernie Watkins G56.22 Lesion of ulnar 1:30p at [place] nerve, left upper limb G56.02 Carpal tunnel syndrome, left upper limb Office Visit 05/27/2019 10:30a [facility] Fernie Watkins G56.22 Lesion of at [place] ulnar nerve, left upper limb G56.02 Carpal tunnel syndrome, left upper limb Assessments Date Code Description Provider 06/17/2019 G56.22 Lesion of ulnar nerve, left upper limb Fernie Watikns MD 06/17/2019 G56.02 Carpal tunnel syndrome, left upper limb Fernie Watkins MD 06/10/2019 G62.9 Polyneuropathy, unspecified Link Tran MD 05/27/2019 G56.22 Lesion of ulnar nerve, left upper limb Fernie Watkins MD 05/27/2019 G56.02 Carpal tunnel syndrome, left upper limb Fernie Watkins MD Plan of Treatment Future Appointment(s):07/07/2019 3:45 pm - Fernie Watkins MD at [facility] at Jhcesb4007/22/2019 9:45 am - Fernie Watkins MD at [facility] at Pdbdox1611/03/2019 9:15 am - Niecy Barksdale MD at [facility]06/17/2019 - Fernie Watkins MDG56.22 Lesion of ulnar nerve, left upper limbFollow up:Follow up: 10-14 days [id number] Carpal tunnel syndrome, left upper limb Functional Status Description No Information Available Mental Status Description No Information Available Referrals Description No Information Available
--- OUTSIDE RECORDS SUMMARY | 2019-07-27 18:31 | XMS REPORT | Continuity of Care Document ---
:1940 External Reference #:[id number] Author Name Fernie Watkins MD (transmitted by agent of provider Dano Cui) Address [address] [place] [id number] Care Team Providers Name Role Phone Zia Green MD - Family Medicine Care Team Information Campus Ambassador [phone] Problems Active Problems Provider Date Seasonal cryptogenic [...] bedtime 100Unit/ML Solution Pen-Inject Irbesartan once daily Zia Green MD 300mg Tablets Metoprolol Succinate once daily Zia Green MD ER 25mg Tablets ER 24HR Atorvastatin Calcium once daily Zia Green MD 40mg Tablets Aspirin 1 by mouth every Unknown 81mg Tablets DR day Novolog Flexpen 15 units daily Unknown 100Unit/ML [...] kg/m2 Results Description No Information Available Procedures Description No Information Available Medical Devices Description No Information Available Encounters Description No Information Available Assessments Date Code Description Provider 06/17/2019 G56.22 Lesion of ulnar nerve, left upper limb Fernie Watkins MD 06/17/2019 G56.02 Carpal tunnel syndrome, left upper limb Fernie Watkins MD 05/27/2019 G56.22 Lesion of ulnar nerve, left upper limb Fernie Watkins MD 05/27/2019 G56.02 Carpal tunnel syndrome, left upper limb Fernie Watkins MD Plan of Treatment Future Appointment(s):07/22/2019 9:45 am - Fernie Watkins MD at [facility] at Oecjhl5111/03/2019 9:15 am - Niecy Barksdale MD at [facility]06/17/2019 - Fernie Watkins MDG56.22 Lesion of ulnar nerve, left upper limbFollow up:Follow up: 10-14 days [id number] Carpal tunnel syndrome, left upper limb Functional Status Description No Information Available Mental Status Description No Information Available Referrals Description No Information Available
--- OUTSIDE RECORDS SUMMARY | 2019-07-27 18:31 | XMS REPORT | Continuity of Care Document ---
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 Problems Provider Date Seasonal cryptogenic [...] Use Denies Drug Use Smoking Status Reviewed: 07/22/19 Patient is a former quit 30 yrs ago, smoker smoked for 40yrs 1PPD Exercise Type/Frequency Walks sporadically Allergies, Adverse Reactions, Alerts Active Allergies Reaction Severity Comments Date NKDA 11/22/2016 Latex 05/27/2019 Adhesive 05/27/2019 Medications Active Medications SIG Qnty Indications Ordering Provider Date Tramadol HCL 1-2 tablets by 30tabs Fernie Watkins, 07/07/2019 50mg Tablets mouth every 6 MD hours as needed pain Tablets 1 by mouth every Niecy Barksdale, 03/20/2018 2.5mg Tablet day MD Clifford Quintero 65 units at Zia Green, bedtime 100Unit/ML Solution Pen-Inject Irbesartan once daily Zia Green, 300mg Tablets Metoprolol Succinate once daily Zia Green, ER 25mg Tablets ER 24HR Atorvastatin Calcium once daily Zia Green, 40mg MD Tablets Aspirin 1 by mouth every Unknown 81mg Tablets DR day Novolog Flexpen 15 units daily Unknown 100Unit/ML Solution Pen-Inject Indomethacin 1 by mouth every Unknown 25mg day as needed Capsules Trulicity Unknown Immunizations Description No Information Available Vital Signs Date Vital Result Comment 07/22/2019 10:06am Height 70 inches 5'10" Heart Rate 109 /min BP Systolic 138 mmHg BP Diastolic 58 mmHg Respiratory Rate 18 /min Body Temperature 100.0 F Pain Level 3 06/17/2019 1:35pm Height 70 inches 5'10" Weight 195.00 lb Heart Rate 84 /min BP Systolic 132 mmHg BP Diastolic 70 mmHg Respiratory Rate 14 /min Body Temperature 97.1 F Pain Level 1 BMI (Body Mass Index) 28.0 kg/m2 Results Test Acquired Date Facility Test Result H/L Range Note Laboratory test 07/07/2019 [facility] Point of 114 mg/dL High 70-100 1 finding 101 DATES [facility] [place] [address] [phone] Basic Metabolic 07/07/2019 [facility] Sodium 138 mmol/L Normal 135-145 Panel [address] [place] [address] [phone] Potassium 3.9 mmol/L Normal 3.5-5.0 Chloride 106 mmol/L Normal 101-111 Co2 Carbon Dioxide 27 mmol/L Normal 22-32 Anion Gap 5 mmol/L Normal 2-11 Calcium 8.2 mg/dL Low 8.6-10.3 Glucose 122 mg/dL High 70-100 Blood Urea Nitrogen 21 mg/dL Normal 6-24 Creatinine 0.96 mg/dL Normal 0.67-1.17 BUN/Creatinine Ratio 21.9 High 8-20 Egfr Non- 75.8 >60 Egfr 91.7 >60 2 Laboratory test 07/07/2019 [facility] Magnesium 1.7 mg/dL Low 1.9-2.[address] [place] [address] [phone] Laboratory test 07/07/2019 [facility] Point of Care 145 mg/dL High 70-100 [address] [place] [address] [phone] Laboratory test 07/07/2019 [facility] Point of Care 245 mg/dL High 70-100 [address] [place] [address] [phone] Laboratory test 07/07/2019 [facility] Point of Care 87 mg/dL Normal 70-100 [address] [place] [address] [phone] Residential Carpet Installer: [id number] 2 Because ethnic data is not always readily available, this report includes an eGFR for both -Americans and non- Americans. The National Kidney Disease Education Program (NKDEP) does not endorse the use of the MDRD equation for patients that are not between the ages of 18 and 70, are , have extremes of body size, muscle mass, or nutritional status, or are non- or non-. According to the National Kidney Foundation, irrespective of diagnosis, the stage of the disease is based on the level of kidney function: Stage Description GFR(mL/min/1.73 m(2)) 1 Kidney damage with normal or decreased GFR 90 2 Kidney damage with mild decrease in GFR 60-89 3 Moderate decrease in GFR 30-59 4 Severe decrease in GFR 15-29 5 Kidney failure <15 (or dialysis) 3 Residential Carpet Installer: [id number] Residential Carpet Installer: [id number] Residential Carpet Installer: [id number] Procedures Date Code Description Status 07/07/2019 24424 Carpal Tunnel Release Completed 07/07/2019 77740 Carpal Tunnel Release Completed 07/07/2019 19392 Neuroplasty &/Or Transposition; Ulnar Nerve AT Elbow Completed 07/07/2019 38840 Neuroplasty &/Or Transposition; Ulnar Nerve AT Elbow Completed 06/10/2019 71303 Nerve Conduction 03-04 Studies Completed 06/10/2019 86424 Needle Electromyography Complete, Five Or More Muscles Completed Studied Medical Devices Description No Information Available Encounters Type Date Location Provider Dx Diagnosis Office Visit 06/17/2019 [facility] Fernie Watkins G56.22 Lesion of ulnar 1:30p at [place] MD nerve, left upper limb G56.02 Carpal tunnel syndrome, left upper limb Office Visit 05/27/2019 10:30a [facility] Fernie Watkins G56.22 Lesion of at [place] ulnar nerve, left upper limb G56.02 Carpal tunnel syndrome, left upper limb Assessments Date Code Description Provider 07/22/2019 G56.22 Lesion of ulnar nerve, left upper limb Fernie Watkins MD 07/22/2019 G56.02 Carpal tunnel syndrome, left upper limb Fernie Watkins MD 07/07/2019 G56.22 Lesion of ulnar nerve, left upper limb Len Truong, PA 07/07/2019 G56.22 Lesion of ulnar nerve, left upper limb Fernie Watkins MD 07/07/2019 G56.02 Carpal tunnel syndrome, left upper limb Len Truong, [place] 07/07/2019 G56.02 Carpal tunnel syndrome, left upper limb Fernie Watkins MD 06/17/2019 G56.22 Lesion of ulnar nerve, left upper limb Fernie Watkins MD 06/17/2019 G56.02 Carpal tunnel syndrome, left upper limb Fernie Watkins MD 06/10/2019 G62.9 Polyneuropathy, unspecified Link Tran MD 05/27/2019 G56.22 Lesion of ulnar nerve, left upper limb Fernie Watkins MD 05/27/2019 G56.02 Carpal tunnel syndrome, left upper limb Fernie Watkins MD Plan of Treatment Future Appointment(s):10/14/2019 9:45 am - Fernie Watkins MD at [facility] at Jsmayo6211/03/2019 9:15 am - Niecy Barksdale MD at [facility]07/22/2019 - Fernie Watkins MDG56.22 Lesion of ulnar nerve, left upper limbFollow up:Follow up: when returns from [facility]56.02 Carpal tunnel syndrome, left upper limb Functional Status Description No Information Available Mental Status Description No Information Available Referrals Description No Information Available
--- NOTE | 2019-07-27 20:16 | ED ---
Influenza-Like Illness - HPI Summary HPI Summary: Patient with history of recurrent COPD, cryptogenic organizing pneumonia, 2 over the past 2 years complains of dry cough, fever, SOB with exertion, decreased O2 sats down to 90% 3-4 days. Denies sore throat, CP, N/3/D, abdominal pain, change in urine, change in BM. Medical history is COPD, HUFFMAN, BPH , DM, HTN, HLD. Former smoker. Followed by regulatory affairs director Dr. Choi. COPD diagnosed by biopsy 2 years ago. Not currently taking steroids. - History of Current Complaint Chief Complaint: EDUpperRespComplaint Time Seen by Provider: 07/27/19 20:14 Hx Obtained From: Patient, Family/Electrical Estimator Onset/Duration: Gradual Onset, Lasting Days Severity: Moderate Associated Signs & Symptoms: Fever, Cough - Allergy/Home Medications Allergies/Adverse Reactions: Allergies Allergy/AdvReac Type Severity Reaction Status Date / Time Adhesive Tape Allergy Rash Verified 07/27/19 18:29 PMH/Surg Hx/FS Hx/Imm Hx Endocrine/Hematology History: Reports: Hx Diabetes - TYPE 2 FS DAILY NO COVERAG Cardiovascular History: Reports: Hx Hypercholesterolemia, Hx Hypertension - ON MEDS, Other Cardiovascular Problems/Disorders - hyperlipidemia Respiratory History: Reports: Hx Pneumonia - x3, including TIN RECOVERY WORKER in 2018 - Cryptogenic Organizing Pneumonia, Other Respiratory Problems/Disorders - pneumonia x3 recent TIN RECOVERY WORKER diagnosis- "cryptogenic organizing pneumonia" History: Reports: Hx Benign Prostatic Hyperplasia, Hx Kidney Stones - followed by dr ortiz semi-annually, Other Problems/Disorders - bph Musculoskeletal History: Reports: Hx Back Problems, Hx Gout, Other Musculoskeletal History - gout Sensory History: Reports: Hx Cataracts - BILATERAL OPERATION ON RETINAS, Hx Contacts or Glasses - GLASSES Denies: Hx Hearing Aid Opthamlomology History: Reports: Hx Cataracts - BILATERAL OPERATION ON RETINAS , Hx Contacts or Glasses - GLASSES EENT History: Denies: Hx Deafness - Cancer History Cancer Type, 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 left ulnar nerve decompression 2008 [facility] [place]. ESWL and stent insertion 2008 [facility] [place]. right retina repair 2016, [place]. right cataract extraction with IOL 2015 [facility] [place] Hx Anesthesia Reactions: No Infectious Disease History: No Infectious Disease History: Denies: Traveled Outside the [place] in Last 30 Days - Family History Known Family History: Positive: Cardiac Disease, Hypertension, Diabetes - Social History Alcohol Use: None Hx Substance Use: No Substance Use Type: Reports: None Hx Tobacco Use: Yes Smoking Status (MU): Former Smoker Type: Cigarettes Amount Used/How Often: 2 PPD 40 yrs Length of Time of Smoking/Using Tobacco: 25+ YEAR Have You Smoked in the Last Year: No Review of Systems Positive: Fever Eyes: Negative ENT: Negative Cardiovascular: Negative Positive: Shortness Of Breath, Cough Gastrointestinal: Negative Genitourinary: Negative Musculoskeletal: Negative Skin: Negative Neurological: Negative Psychological: Normal All Other Systems Reviewed And Are Negative: Yes Physical Exam Triage Information Reviewed: Yes Vital Signs On Initial Exam: Initial Vitals Temp Pulse Resp BP Pulse Ox 101.2 F 111 20 155/106 93 07/27/19 18:27 07/27/19 18:27 07/27/19 18:27 07/27/19 18:27 07/27/19 18:27 Vital Signs Reviewed: Yes Appearance: Positive: Well-Appearing Skin: Positive: Warm Head/Face: Positive: Normal Head/Face Inspection Eyes: Positive: Normal Neck: Positive: Supple Respiratory/Lung Sounds: Positive: Clear to Auscultation Cardiovascular: Positive: Tachycardia Abdomen Description: Positive: Nontender Musculoskeletal: Positive: Normal Neurological: Positive: Normal Psychiatric: Positive: Normal AVPU Assessment: Alert - Adelina Coma Scale Best Eye Response: 4 - Spontaneous Best Motor Response: 6 - Obeys Commands Best Verbal Response: 5 - Oriented Coma Scale Total: 15 Procedures - Sedation Patient Received Moderate/Deep Sedation with Procedure: No Diagnostics - Vital Signs Vital Signs Temp Pulse Resp BP Pulse Ox 07/27/19 18:27 101.2 F 111 20 155/106 93 - Laboratory Result Diagrams: 07/28/19 07:30 07/28/19 12:32 Lab Statement: Any lab studies that have been ordered have been reviewed, and results considered in the medical decision making process. Flu Symptom Course/Dx - Course Course Of Treatment: Patient with history of recurrent COPD, cryptogenic organizing pneumonia, 2 over the past 2 years complains of dry cough, fever, SOB with exertion, decreased O2 sats down to 90% 3-4 days. Denies sore throat , CP, N/3/D, abdominal pain, change in urine, change in BM. Medical history is COPD, HUFFMAN, BPH, DM, HTN, HLD. Former smoker. Followed by regulatory affairs director Dr. Barksdale. COPD diagnosed by biopsy 2 years ago. Not currently taking steroids. Febrile 101.2. Tachycardic at 111. O2 sats 93% on triage. WBC 18. Anion gap 12. Creatinine 1.32. CRP 162. Labs Otherwise at patient baseline. EKG sinus tachycardia with heart rate of 105, same as prior. Chest x-ray unremarkable. flu Negative. ABG and CT chest pending. Admitted to hospitalist. - Diagnoses Provider Diagnoses: Sepsis Discharge ED - Sign-Out/Discharge Documenting (check all that apply): Patient Departure - Discharge Plan Condition: Stable Disposition: ADMITTED TO [facility] - Billing Disposition and Condition Condition: STABLE Disposition: Admitted to [facility]
[2019-07-27 20:33] LABS: ABS Basophils 0.2 10^3/ul (0-0.2); ABS Eosinophils 0.2 10^3/ul (0-0.6); ABS Lymphocytes 1.8 10^3/ul (1.0-4.8); ABS Monocytes 1.2 10^3/ul (0-0.8); ABS Neutrophils 14.7 10^3/ul (1.5-7.7); Eosinophil % 1.1 %; Hematocrit 38 % (42-52); Hemoglobin 13.3 g/dL (14.0-18.0); Mean Corpuscular HGB Conc 35 g/dL (31-36); Mean Corpuscular Hemoglobin 32 pg (27-31); Mean Corpuscular Volume 92 fL (80-94); Mean Platelet Volume 6.8 fL (7.4-10.4); Nucleated Red Blood Cells % 0.1; Platelet Count 320 10^3/uL (150-450); Red Blood Count 4.13 10^6 /uL (4.18-5.48); Red Cell Distribution Width 13 % (10-15)
[2019-07-27] MEDS ORDERED: NS 0.9% 1000 ML** 2,000 ML IV ONE (20:45)
[2019-07-27 20:50] LABS: Albumin 4.1 g/dL (3.2-5.2); Albumin/Globulin Ratio 1.1 (1-3); Calcium 9.6 mg/dL (8.6-10.3); EGFR African American 63.5 (>60); EGFR Non-African American 52.5 (>60); Globulin 3.7 g/dL (2-4); Total Protein 7.8 g/dL (6.4-8.9)
[2019-07-27 20:52] LABS: Troponin I 0.01 ng/mL (<0.03)
[2019-07-27 21:04] LABS: C Reactive Protein 162.34 mg/L (<8.01)
[2019-07-27] MEDS ORDERED: NS 0.9% 1000 ML** 1,000 ML IV ONE (21:09)
[2019-07-27] MEDS ORDERED: Acetaminophen TAB* 325 MG PO ONE (21:14)
[2019-07-27 21:48] LABS: Influenza A Molecular NEGATIVE (Negative); Influenza B Molecular NEGATIVE (Negative)
[2019-07-27] MEDS ORDERED: methylPREDNISolone 125 MG* 2 ML VIAL IV ONE (22:35)
[2019-07-27] MEDS ORDERED: Azithromycin 500 mg/250 ml NS 500 MG/250 ML BAG IVPB ONE (22:36)
[2019-07-27] MEDS ORDERED: Cyclobenzaprine TAB* 10 MG PO PRN (22:38)
[2019-07-27] MEDS ORDERED: Gabapentin CAP(*) 100 MG PO PRN (22:38)
[2019-07-27] MEDS ORDERED: Acetaminophen TAB* 325 MG PO PRN (22:38)
[2019-07-27] MEDS ORDERED: Dextrose 50% Syringe 50 ML* 25 GM/50 ML SYRINGE IV PUSH PRN (22:42)
[2019-07-27] MEDS ORDERED: cefTRIAXone(*) 1 GM in NS 0.9% 50 ML* 50 ML IVPB SCH (23:00)
[2019-07-27] MEDS ORDERED: Insulin GLARGINE(*) 1 UNITS UNIT SUBCUT SCH (23:00)
[2019-07-27] MEDS ORDERED: Iodixanol* (CONTRAST) 320 MG/ML 100 ML SDV IV ONE (23:28)
[2019-07-28] MEDS ORDERED: cefTRIAXone(*) 1 GM in NS 0.9% 50 ML* 50 ML IVPB SCH (02:00)
[2019-07-28 03:15] LABS: Urine Appearance Clear; Urine Bilirubin Negative (Negative); Urine Blood Negative (Negative); Urine Color Yellow; Urine Glucose Negative (Negative); Urine Ketones Negative (Negative); Urine Nitrite Negative (Negative); Urine Protein Negative (Negative); Urine Specific Gravity 1.024 (1.010-1.030); Urine Urobilinogen Negative (Negative)
[2019-07-28 07:51] LABS: ABS Lymphocytes 0.9 10^3/ul (1.0-4.8); ABS Monocytes 0.2 10^3/ul (0-0.8); ABS Neutrophils 11.1 10^3/ul (1.5-7.7); Eosinophil % 0.1 %; Hematocrit 34 % (42-52); Hemoglobin 11.8 g/dL (14.0-18.0); Mean Corpuscular HGB Conc 35 g/dL (31-36); Mean Corpuscular Hemoglobin 32 pg (27-31); Mean Corpuscular Volume 92 fL (80-94); Mean Platelet Volume 7.1 fL (7.4-10.4); Platelet Count 241 10^3/uL (150-450); Red Blood Count 3.71 10^6 /uL (4.18-5.48); Red Cell Distribution Width 14 % (10-15); White Blood Count 12.2 10^3/uL (3.5-10.8)
[2019-07-28] MEDS ORDERED: methylPREDNISolone SOD 40 MG* 1 ML VIAL IV SCH (08:00)
[2019-07-28 08:06] LABS: BUN/Creatinine Ratio 26.7 (8-20); Calcium 8.6 mg/dL (8.6-10.3); EGFR African American 82.7 (>60); EGFR Non-African American 68.3 (>60); Potassium 4.4 mmol/L (3.5-5.0)
[2019-07-28] MEDS: Insulin LISPRO* 1 UNITS UNIT SUBCUT SCH ×2 (08:47→13:09)
[2019-07-28] MEDS ORDERED: Atorvastatin* 40 MG TAB PO SCH (09:00)
[2019-07-28] MEDS ORDERED: Azithromycin TAB* 250 MG PO SCH (09:00)
[2019-07-28] MEDS ORDERED: Metoprolol Succinate XL TAB* 25 MG PO SCH (09:00)
[2019-07-28] MEDS ORDERED: Aspirin EC TAB* 81 MG TAB.EC PO SCH (09:00)
[2019-07-28] MEDS ORDERED: Multivitamins/Minerals TAB PO SCH (09:00)
--- NOTE | 2019-07-28 11:14 | HP ---
HISTORY AND PHYSICAL: DATE OF ADMISSION: 07/28/19 ADMITTING PROVIDER: Jamie Lombardi MD PRIMARY CARE PROVIDER: Zia Green MD OUTPATIENT MAINTENANCE SERVICE TECHNICIAN: Dr. Barksdale. OUTPATIENT ERP TECHNICAL LEAD: Dr. Chirinos CHIEF COMPLAINT: Fatigue, low-grade fevers, and cough. HISTORY OF PRESENT ILLNESS: Mr. Garrick Rainey is a 79-year-old male with a past medical history of cryptogenic organizing pneumonia (biopsy confirmed), insulin dependent diabetes mellitus, hypertension, hyperlipidemia, BPH, gout, and nephrolithiasis. For the last 3 to 4 days, he developed low-grade fevers, progressive exhaustion, cough, and increased shortness of breath. Since the symptoms were not improving, he presented [place] [facility] and was found to be febrile to 101.2 with leukocytosis of 18.0, tachycardia to 111, and tachypneic as high as 40 meeting 4/4 SIRS criteria. He had chest x-ray read pending, but no acute infiltrates and he was referred to the hospitalist service for admission for sepsis and suspected cryptogenic organizing pneumonia. He had a CT chest with contrast, which showed slight diffuse interstitial prominence and minimal bilateral lower lobe and lingular fibroelastic change somewhat depressed study, no interval infiltrates. He had successful boluses of 3 L normal saline. CRP was 162, lactic acid was 0.7. Influenza A and B were negative. PAST MEDICAL HISTORY: Insulin-dependent diabetes mellitus, hypertension, hyperlipidemia, BPH, gout, nephrolithiasis, and cryptogenic organizing pneumonia. PAST SURGICAL HISTORY: MEDICATIONS: Include: 1. Gabapentin 100 mg p.o. t.i.d. p.r.n. 2. Trulicity 0.75 mg injected weekly on Sundays. 3. Cyclobenzaprine 10 mg p.o. t.i.d. p.r.n. 4. Atorvastatin 40 mg p.o. q.a.m. 5. Aspirin 81 mg p.o. q.a.m. 6. Acetaminophen 650 mg p.o. q.6 hours p.r.n. 7. Hydrochlorothiazide 12.5 mg p.o. q.a.m. 8. Multivitamin one tablet p.o. q.a.m. 9. Metoprolol succinate 25 mg p.o. q.a.m. 10. Irbesartan 300 mg p.o. q.a.m. 11. Novolin 70/30, 15 units only at dinner time. 12. Lantus 60 units at bedtime. 13. Indomethacin 25 mg p.o. t.i.d. p.r.n. ALLERGIES: No known drug allergies. He develops a rash with adhesive tape. FAMILY HISTORY: Mother of myocardial infarction, father of prostate cancer. SOCIAL HISTORY: The patient was a former smoker, quit in 1995, 30-pack years. Denies alcohol use, he is retired. His , Petra Rainey, is his medical surrogate. He desires to be a full code. REVIEW OF SYSTEMS: Complete 14-point review of systems negative except as per HPI. He denies any headache, muscle ache, recent travel, sick contacts. He got a flu shot this year. PHYSICAL EXAMINATION GENERAL APPEARANCE: No acute distress. VITAL SIGNS: Temperature 101.2, pulse rate is 111, respiratory rate as high as 40, blood pressure 155/106, he is satting 93% on room air. HEENT: Normocephalic, atraumatic. Pupils are equal, round, and reactive to light. Extraocular movements intact. No scleral icterus. LUNGS: Distant breath sounds. No wheezing, rhonchi or rales. CARDIOVASCULAR: Regular rate and rhythm. No murmurs, rubs or gallops. ABDOMEN: Soft, nontender, nondistended. EXTREMITIES: Warm and well perfused. No peripheral edema. SKIN: No lesions or rashes. Neurologic: Cranial nerves II through XII intact. DIAGNOSTIC STUDIES/LAB DATA: White count 18.0, hemoglobin 13.3, hematocrit 38 , platelets 320. ABG; pH 7.43, pCO2 30, pO2 71, bicarb 22.3. Sodium 135, potassium 4.0, chloride 100, carbon dioxide 23, anion gap 12, BUN 29, creatinine 1.32, glucose 182, lactic acid 0.7, calcium 9.6, total bilirubin 1.0 , AST 18, ALT 20, alkaline phosphatase 115. Troponin 0.01. CRP 162, BNP 67, albumin 4.1, Urinalysis normal. Influenza A and B negative. Imaging; chest x-ray formal read pending but no acute process per my read. CT chest with IV contrast; impression: 1. Slight diffuse interstitial prominence with minimal bilateral lower lobe and lingular fibroelastic change, which is similar to the prior study. No interval traits. 2. Right middle lobe rounded nodule which is unchanged, measuring 8 mm, this is also similar to the prior study of 10/31/16. 3. Upper normal mediastinal lymph node, which are similar to the prior study. 4. Question of minimal cholelithiasis. EKG demonstrates sinus tachycardia, normal axis. No ST elevations or depressions. Normal interval. ASSESSMENT AND PLAN: Garrick Rainey is a 79-year-old man with a past history of cryptogenic organizing pneumonia, insulin dependent diabetes mellitus, hypertension, hyperlipidemia, presenting with 4/4 SIRS criteria, fatigue, exhaustion, and coughing similar to his prior presentations with cryptogenic organizing pneumonia. I started him on Solu-Medrol 125 mg in the emergency room , 40 mg IV q.12 hours starting tomorrow. We will treat him empirically with ceftriaxone, azithromycin, followup blood cultures and sputum cultures, can consider urine antigen for obstructive pneumonia but my clinical suspicion this is a return of his cryptogenic organizing pneumonia and should respond to steroids. He is status post fluid bolus. He never had lactic acidosis. Repeat CBC and BMP daily. For his chronic issues, continue his metoprolol succinate 25 mg p.o. q.a.m. for hypertension, atorvastatin 40 mg p.o. q.a.m. for hyperlipidemia, aspirin 81 mg daily, gabapentin, and cyclobenzaprine p.r.n. He is a full code. Medical surrogate is his , Petra. He can eat a consistent carbohydrate diet. For his insulin dependent diabetes mellitus especially in the setting of increased steroids, we will continue his Lantus 60 units at bedtime, sliding scale insulin q.a.c., h.s. Consideration for standing preprandial doses of lispro while he is on the steroids. Depending on clinical course, can consider consultation with Dr. Barksdale. [id number]/[facility] #: [id number] RICKIE
[2019-07-28 11:21] VITALS: BP 122/47
[2019-07-28 13:41] LABS: BUN/Creatinine Ratio 30.8 (8-20); Calcium 8.6 mg/dL (8.6-10.3); EGFR African American 80.9 (>60); EGFR Non-African American 66.8 (>60); Potassium 4.6 mmol/L (3.5-5.0)
[2019-07-28] MEDS ORDERED: Insulin LISPRO* 1 UNITS UNIT SUBCUT ONE (14:44)
--- NOTE | 2019-07-28 17:21 | DS ---
Resident Discharge Summary Discharge Summary: Date of Admission: 07/28/19 Date of Discharge: 07/28/19 Admitting MD: Jamie Lombardi MD Attending MD: Pablo Tyler MD Primary Care Physician: Zia Green MD CC Zia Green, Niecy Barksdale Home Medications Medication Instructions Recorded Confirmed Type Atorvastatin* [Lipitor 40 MG*] 40 mg PO QAM 01/11/16 07/27/19 History Insulin Glargine,Hum.rec.anlog 60 unit SUBCUT BEDTIME 01/11/16 07/27/19 History [Lantus] Aspirin EC TAB* [Ecotrin EC Low 81 mg PO QAM 10/27/16 07/27/19 History Dose 81 MG*] Irbesartan (NF) [Avapro (NF)] 300 mg PO QAM 10/27/16 07/27/19 History Multivitamins/Minerals TAB* 1 tab PO QAM 10/27/16 07/27/19 History [Theragran/minerals TAB*] Indomethacin CAP* [Indocin CAP*] 25 mg PO TID PRN 04/24/17 07/27/19 History Metoprolol Succinate XL TAB* 25 mg PO QAM 04/24/17 07/27/19 History [Toprol XL TAB*] Acetaminophen TAB* [Tylenol TAB*] 650 mg PO Q6H PRN tab 06/13/18 07/27/19 Rx Cyclobenzaprine HCl 10 mg PO TID PRN 06/30/19 07/27/19 History Dulaglutide [Trulicity] 1 syringe SUBCUT WEEKLY 06/30/19 07/27/19 History Gabapentin [Neurontin] 100 mg PO TID PRN 06/30/19 07/27/19 History Insulin NPH Hum/Reg Insulin Hm 15 units SUBCUT 1700 06/30/19 07/27/19 History [Novolin 70-30 Flexpen 3 ml x 5 Pens] hydroCHLOROthiazide 12.5 mg PO QAM 06/30/19 07/27/19 History [Hydrochlorothiazide] Azithromycin TAB* [Zithromax TAB 250 mg PO DAILY #6 tab 07/28/19 Rx (Z-ELIZABETH) 250 mg #6 tabs] predniSONE [Prednisone 20 MG TAB] 20 mg PO DAILY #21 tablet (see taper on Rx) 07/28/19 Rx Disposition: Home Condition: Stable to Home Primary Diagnosis: Bronchiolitis obliterans with organizing pneumonia Secondary Diagnosis: 1. Diabetes Mellitus 2. Hypertension 3. Hyperlipidemia 4. BPH 5. Gout 6. Nephrolithiasis Diagnostic Imaging: Chest CT dated 07/27/2019: slight diffuse interstitial prominence with minimal bilateral lower lobe and lingular fibro-atelectatic change which is similar to thr prior study, no interval infiltrates. Right middle lobe rounded nodule which is unchanged measuring 8mm. Pertinent Laboratory Results: CBC 07/27/2019 on admission: TW 18, Hb 13.3, plt 320 BMP: Na 135, K 4.0, CO2 23, creatinine 1.32 Trop: 0.01 CRP 162.34 Hospital Course: Please refer to H&P for full history. In summary, Mr. Rainey is a 79 y/o male with history of biopsy proven cryptogenic organizing pneumonia, insulin dependent diabetes mellitus, hypertension, hyperlipidemia, BPH, presenting with low grade fever, progressive cough and increasing shortness of breath for 3 days duration. He was found to have fever to 101.2, leukocytosis of 18, CRP 162 on admission, subsequent CT chest confirmed interstitial lung changes with no obvious opacities. His clinical features and CT scan in line with the diagnosis of BOOP/YARD STOCKER flare. He received IV solumedrol 40mg Q12h for 2 doses, iv ceftriaxone and azithromycin one dose inpatient, his symptoms significantly improved, his o2 sat back to normal, and lab tests much improved. Case was discussed with help desk rep Dr. Barksdale over phone who suggested to start him pred 30mg daily with 10mg weekly taper on discharge. He was instructed to see his primary care Dr. Green within 1 week, and follow up with Dr. Barksdale. He was found to have hyperglycemia during his short stay in hospital with glucose up to 400s, no ketoacidosis, this is likely due to steroid effect. I instructed him to increase long acting insulin as well as short acting insulin accordingly while on steroid. He understands it well as he had similar problems before, and knows how to adjust it. On the day of discharge, patient is comfortable, stated no more SOB, cough resolved. 12-point physical examination is all WNL other than velcro sounds bilaterally at the base of lungs. Lab results showing WBC down from 18 to 12, BMP showing mild acidosis with bicarb 19 and normal AG, glucose at 394. Again, instructions regarding insulin dose adjustment was given before discharge. Follow Up Instructions: Follow up with primary care Dr. Green within 1 week Follow up with Dr. Barksdale for BOOP/YARD STOCKER In case of an emergency or after clinic hours, please go to your nearest Emergency Department. You may also call the [facility] head gauge unit operator at . Attestation Documenting Resident: Cynthia Rodriguez Supervising Physician: Eddie Tyler Attestation: This service has been performed in part by a resident under the direction of a teaching physician.I, Eddie Tyler, performed the service, or was physically present during the critical, or cruz portions of the service, furnished by the resident. I participated in the management of the patient.
== END 2019-07-28 15:15 | disposition home or self-care (01) ==
LOC: ED 18:24 → INTOOBSV 07-28 01:07 → MED 07-28 01:07
PROVIDERS: ADMIT Internal Medicine; ATTEND Internal Medicine
DX: J84.89 Other specified interstitial pulmonary diseases (principal); E11.9 Type 2 diabetes mellitus without complications; I10 Essential (primary) hypertension; E78.5 Hyperlipidemia, unspecified; N40.0 Benign prostatic hyperplasia without lower urinary tract symptoms; M10.9 Gout, unspecified; N20.2 Calculus of kidney with calculus of ureter; R05 Cough; R53.83 Other fatigue; E78.00 Pure hypercholesterolemia, unspecified; Z87.891 Personal history of nicotine dependence; Z87.442 Personal history of urinary calculi; Z79.4 Long term (current) use of insulin; Z79.899 Other long term (current) drug therapy; Z79.82 Long term (current) use of aspirin
CPT/HCPCS: 36415; 71046; 71260; 80048; 80053; 81003; 82803; 82947; 83605; 83880; 84484; 85025; 86140; 87040; 93005; 96374; 96375; 99284; A9270-GY; G0378; J0456; J0696; J2920; J2930; Q9967

== ENCOUNTER 2022-03-13 10:35 | Observation (INO) ==
[~2022-03-13 10:35] MED LIST changes: +Buffered Lidocaine 1% SYRIN 1 ml INTRADERM ONE; -Buffered Lidocaine 1% SYRIN* 1 ML/SYRINGE INTRADERM ONE; +Famotidine IV 10 MG/ML 2 ml VIAL (20 mg) IV ONE; -Lactated Ringers 1000 ML Bag* 1,000 ML IV SCH; +Lactated Ringers 1000 ml BAG 1,000 ML IV SCH
[2022-03-13] MEDS ORDERED: ceFAZolin 2 GM PREMIX 2 GM/50 ML BAG ONE (11:43)
[2022-03-13] MEDS ORDERED: Buffered Lidocaine 1% SYRIN 1 ml INTRADERM ONE (11:44)
[2022-03-13] MEDS ORDERED: Famotidine IV 10 MG/ML 2 ml VIAL (20 mg) ONE (11:44)
[2022-03-13] MEDS ORDERED: Propofol 10 MG/ML 20 ML BTL ONE (13:11)
[2022-03-13] MEDS ORDERED: Midazolam 2 mg/2 ml VIAL 1 mg/ml 2 ml VIAL (2 mg) ONE (13:11)
[2022-03-13] MEDS ORDERED: Rocuronium 50 mg VIAL 10 mg/ml 5 ml VIAL (50 mg) ONE (13:11)
[2022-03-13] MEDS ORDERED: Lidocaine 2% PF 5 ML VIAL ONE (13:11)
[2022-03-13] MEDS ORDERED: fentaNYL 100 mcg/2 ml 50 MCG/ML VIAL ONE ×2 (13:11→15:47)
[2022-03-13] MEDS ORDERED: Gelfoam 12-7 ADSORBABL SPONGE ONE (13:23)
[2022-03-13] MEDS ORDERED: Lidocaine 1% w EPI 1:200,000 SDV 30 ML VIAL ONE (13:23)
[2022-03-13] MEDS ORDERED: Thrombin 5,000 UNITS 1 APPLIC KIT - topical use - TOPICAL ONE (13:23)
[2022-03-13] MEDS ORDERED: ceFAZolin VIAL VIAL ONE (13:23)
[2022-03-13] MEDS ORDERED: Ondansetron 4 mg VIAL 2 MG/ML 2 ml VIAL IV PRN ×2 (14:07→15:31)
[2022-03-13] MEDS ORDERED: Naloxone 0.4 mg VIAL 0.4 mg/ml 1 ml VIAL IV PRN (14:07)
[2022-03-13] MEDS ORDERED: Phenylephrine 40 mcg/mL 10mL (400mcg) SYRINGE ONE (14:17)
[2022-03-13] MEDS ORDERED: Dexamethasone IV 4 MG/ML VIAL 1 ml VIAL ONE (14:28)
[2022-03-13] MEDS ORDERED: Ondansetron 4 mg VIAL 2 MG/ML 2 ml VIAL ONE (15:21)
[2022-03-13] MEDS ORDERED: Magnesium Hydroxide LIQ 30 ML UDC PO PRN (15:31)
[2022-03-13] MEDS: fentaNYL 100 mcg/2 ml 50 MCG/ML VIAL IV PRN ×3 (15:48→16:37)
[2022-03-13] MEDS ORDERED: Lactated Ringers 1000 ml BAG 1,000 ML IV SCH (16:00)
[2022-03-13] MEDS ORDERED: Insulin GLARGINE 100 un/ml 10 ml VIAL SUBCUT SCH (21:00)
[2022-03-14 08:18] VITALS: BP 163/64
[2022-03-14] MEDS ORDERED: Dulaglutide (NF) 0.75 MG/0.5 ML SYRINGE SUBCUT SCH (09:00)
[2022-03-14] MEDS ORDERED: Multivitamins/Minerals TAB PO SCH (09:00)
== END 2022-03-14 10:00 | disposition home or self-care (01) ==
LOC: OR 10:35 → SSU 10:35
PROVIDERS: ADMIT Neurological Surgery; ATTEND Neurological Surgery